=== PATIENT | male | born 1945 | race Caucasian/White ===

== ENCOUNTER 2017-02-26 16:48 | Inpatient (IN) | payer MEDICARE, MEDICAID ==
[~2017-02-26] VITALS: Ht 182.9 cm; Wt 90.7 kg
[~2017-02-26 16:48] MED LIST: ACET650S15 RC; BISA10SU58 RC; FAMO-119 PO; GLUC1KIT IJ; HYDR-3812 PO; INSU100I14 SQ; INSU100I29 SQ; IPRA3AMP IH; METO-310 PO; METO-333 PO; MULT-1042 PO; PHEN100C11 PO; POTA20LI PO; POTA2IV.2 IV; THIA100T68 PO; VALP250S3 PO
[2017-02-26] MEDS ORDERED: DONE5TAB30 PO (17:58)
[2017-02-26] MEDS ORDERED: TOLT4CAP13 PO (17:58)
[2017-02-26] MEDS ORDERED: DIVA250T4 PO (17:58)
[2017-02-26] MEDS ORDERED: MEMA5TAB16 PO (17:58)
[2017-02-26] MEDS ORDERED: TAMS0.4C2 PO (17:58)
[2017-02-26] MEDS ORDERED: TRAZ-28 PO (17:58)
[2017-02-26 18:11] LABS: BASOPHILS % (AUTO) 0 % (0-10); EOSINOPHILS # (AUTO) 0.1 10^3/uL (0.0-0.3); EOSINOPHILS % (AUTO) 1 % (0-10); LYMPHOCYTES # (AUTO) 1.2 X 10^3 (1.0-4.0); LYMPHOCYTES % (AUTO) 10 % (12-44); MEAN CORPUSCULAR HEMOGLOBIN 32 PG (25-34); MEAN CORPUSCULAR HGB CONC 34 G/DL (32-36); MEAN CORPUSCULAR VOLUME 95 FL (80-99); MEAN PLATELET VOLUME 11.1 FL (7.4-10.4); MONOCYTES # (AUTO) 1.4 X 10^3 (0.0-1.0); MONOCYTES % (AUTO) 11 % (0-12); NEUTROPHILS # (AUTO) 9.5 X 10^3 (1.8-7.8); NEUTROPHILS % (AUTO) 78 % (42-75); PLATELET COUNT 221 10^3/uL (130-400); RED BLOOD COUNT 3.29 10^6/uL (4.35-5.85); RED CELL DISTRIBUTION WIDTH 13.2 % (10.0-14.5); WHITE BLOOD COUNT 12.2 10^3/uL (4.3-11.0)
[2017-02-26 18:18] LABS: INR 1.1 (0.8-1.4); PROTHROMBIN TIME PATIENT 14.2 SEC (12.2-14.7)
[2017-02-26 18:25] LABS: ALANINE AMINOTRANSFERASE 11 U/L (0-55); ALBUMIN 3.4 G/DL (3.2-4.5); ANION GAP 10 MMOL/L (5-14); ASPARTATE AMINO TRANSFERASE 11 U/L (5-34); BILIRUBIN,TOTAL 0.5 MG/DL (0.1-1.0); BLOOD UREA NITROGEN 21 MG/DL (7-18); BUN/CREATININE RATIO 16; CALCIUM 8.9 MG/DL (8.5-10.1); CARBON DIOXIDE 24 MMOL/L (21-32); CHLORIDE 102 MMOL/L (98-107); CREATININE SERUM 1.34 MG/DL (0.60-1.30); GFR ESTIMATED 53; GLUCOSE 151 MG/DL (70-105); MAGNESIUM 1.9 MG/DL (1.8-2.4); POTASSIUM 4.2 MMOL/L (3.6-5.0); SODIUM 136 MMOL/L (135-145); TOTAL PROTEIN 6.5 G/DL (6.4-8.2)
--- NOTE | 2017-02-26 18:29 | ED General ---
General Chief Complaint: Altered Mental Status Stated Complaint: FALL/PAIN ALL OVER/LOW OXYGEN LEVELS Nursing Triage Note: Sister states that her brother was having changes in mentation starting last night. Stated he was wondering into other residents rooms and was very sleepy. Patient is oriented times 4 at this time. He does state that he has been having an increase difficulty in voiding. Sisiter states that he was wheezing last night and today, sats were in 80's but they gave him a breathing treatment and sat improved to 90's/ / Pt c/o muscle and joint pain over body Nursing Sepsis Screen: No Definite Risk Source of Information: Patient, Family Exam Limitations: No Limitations History of Present Illness Time Seen by Provider: 18:29 Initial Comments 71-year-old male patient presents to the emergency department with complaints of altered mental status beginning last night. Patient is a relatively new resident at [facility]. Reports patient was wandering into other residents rooms with increased sleepiness. Patient does report poor difficulty with voiding. Denies hematuria, dysuria, frequency. Staff reported to the sister the patient was having wheezing last night with SaO2 in the 80's. After a nebulizer treatment, SaO2 increased the the 90's. Patient has chronic LE pain, but worse today. Brother in law states patient rolled out of bed earlier today. Patient thinks he hit his head on the floor. Denies LOC or headache. Timing/Duration: 12-24 Hours, Intermittent Modifying Factors: worse with Other (Denies modifying factors) Allergies and Home Medications Allergies Coded Allergies: No Known Drug Allergies (Verified , 02/26/17) Home Medications Acetaminophen 325 Mg Tablet, 650 MG PO Q4H PRN for PAIN-MILD OR TEMPATURE, ( Reported) TAKES 2 (325 MG) TABLETS Alprazolam 0.25 Mg Tablet, 0.25 MG PO BID PRN for AG, (Reported) Bisacodyl 10 Mg Supp.rect, 10 MG RC DAILY PRN for CONSTIPATION, (Reported) Budesonide/Formoterol Fumarate 10.2 Gm Hfa.aer.ad, 1 PUFF IH BID, (Reported) Cetirizine HCl 10 Mg Tablet, 10 MG PO HS, (Reported) Citalopram Hydrobromide 10 Mg Tablet, 10 MG PO DAILY, (Reported) Divalproex Sodium 250 Mg Tablet.dr, 500 MG PO DAILY, (Reported) TAKES 2 (250 MG) TABLETS Divalproex Sodium 250 Mg Tab.er.24h, 750 MG PO HS, (Reported) TAKES 3 (250 MG) TABLETS Donepezil HCl 5 Mg Tablet, 5 MG PO HS, (Reported) Famotidine 20 Mg Tablet, 20 MG PO BID, (Reported) Gabapentin 100 Mg Capsule, 100 MG PO HS, (Reported) Insulin Detemir 100 Unit/1 Ml Insuln.pen, 10 UNIT SQ DAILY@0700, (Reported) Insulin Lispro 100 Unit/1 Ml Insuln.pen, SQ SLIDING/SCALE, (Reported) 200-250 2 UNITS 251-300 4 UNITS 301-350 6 UNITS 351-400 8 UNITS NOTIFY NURSE IF BS ABOVE 400 OR BELOW 60 Ipratropium/Albuterol Sulfate 3 Ml Ampul.neb, 3 ML IH Q6H PRN for SHORTNESS OF BREATH, (Reported) Loperamide HCl 2 Mg Capsule, 2 MG PO TID PRN for LOOSE STOOLS, (Reported) Memantine HCl 5 Mg Tablet, 5 MG PO BID, (Reported) Metoprolol Tartrate 25 Mg Tablet, 25 MG PO BID, (Reported) HOLD IF PULSE < 60 Multivitamin 1 Each Tablet, 1 TAB PO DAILY, (Reported) Potassium Chloride 20 Meq Tab.er.prt, 20 MEQ PO BID, (Reported) Tamsulosin HCl 0.4 Mg Cap.er.24h, 0.4 MG PO HS, (Reported) Thiamine Mononitrate 100 Mg Tablet, 100 MG PO DAILY, (Reported) Tolterodine Tartrate 4 Mg Cap.er.24h, 4 MG PO DAILY, (Reported) Trazodone HCl 50 Mg Tablet, 50 MG PO HS, (Reported) Constitutional: No chills, No diaphoresis, No dizziness, No fever, No malaise, weakness (generalized weakness. previously able to transfer self to and from his wheelchair. Today unable to transfer self.) EENTM: no symptoms reported Respiratory: see HPI, No cough, No dyspnea on exertion, No hemoptysis, No orthopnea, No phlegm, No short of breath (denies current SOB), No wheezing ( denies current wheezing.) Cardiovascular: No chest pain, No edema, No palpitations, No syncope Gastrointestinal: no symptoms reported Genitourinary: see HPI, No decreased output, No dysuria, No frequency, No hematuria, hesitancy, No pain Musculoskeletal: see HPI Skin: no symptoms reported Psychiatric/Neurological: See HPI, Denies Headache, Denies Numbness, Denies Paresthesia, Denies Seizure, Denies Tingling, Denies Weakness (denies one sided weakness.) All Other Systems Reviewed Negative Unless Noted: Yes (Negative excepted noted.) Past Nrudsmn-Zchvyo-Ztqsbd Hx Patient Social History Alcohol Use: Denies Use Recreational Drug Use: No Smoking Status: Former Smoker Type Used: Cigarettes Recent Foreign Travel: No Contact w/Someone Who Travel: No Recent Infectious Disease Expo: No Recent Hopitalizations: No Immunizations Up To Date Tetanus Booster (TDap): Unknown Date of Pneumonia Vaccine: Jul 20, 2015 Date of Influenza Vaccine: Aug 19, 2015 Seasonal Allergies Seasonal Allergies: No Surgeries HX Surgeries: Yes (J tube) Surgeries: Tracheostomy Respiratory Hx Respiratory Disorders: Yes (bacterial pneumonia) Respiratory Disorders: Pneumonia, COPD Cardiovascular Hx Cardiac Disorders: No Neurological Hx Neurological Disorders: Yes (brain injury 2014; 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) Neurological Disorders: Dementia, Traumatic Brain Injury Reproductive System Hx Reproductive Disorders: No Genitourinary Hx Genitourinary Disorders: No Gastrointestinal Hx Gastrointestinal Disorders: No Musculoskeletal Hx Musculoskeletal Disorders: No Endocrine Hx Endocrine Disorders: Yes Endocrine Disorders: Diabetes, Non-Insulin dep HEENT HX ENT Disorders: No Cancer Hx Cancer: No Psychosocial Hx Psychiatric Problems: No Integumentary HX Skin/Integumentary Disorder: No Blood Transfusions Hx Blood Disorders: No Reviewed Nursing Assessment Reviewed/Agree w Nursing PMH: Yes Family Medical History Significant Family History: No Pertinent Family Hx Family Medial History: Alcoholism 19 FATHER, Onset:Unknown Congenital heart disease 19 FATHER, Onset:Unknown FH: cancer G8 SISTER, Onset:Unknown Physical Exam Vital Signs Vital Sign - Last 12Hours 02/26/17 02/26/17 02/26/17 17:20 21:04 21:15 Temp 98.3 Pulse 68 Resp 18 B/P (MAP) 117/58 Pulse Ox 94 O2 Delivery Room Air O2 Flow Rate 2.00 Capillary Refill : Less Than 3 Seconds General Appearance: No Apparent Distress, WD/WN HEENT: PERRL/EOMI, TMs Normal, Normal ENT Inspection, Pharynx Normal Neck: Full Range of Motion, Normal Inspection, Non Tender, Supple Respiratory: Lungs Clear, Normal Breath Sounds, No Respiratory Distress Cardiovascular: Regular Rate, Rhythm, No Edema, No Murmur, Normal Peripheral Pulses Gastrointestinal: Normal Bowel Sounds, No Organomegaly, Non Tender, Soft, No Distended Back: Normal Inspection Extremity: Normal Capillary Refill, Normal Inspection, No Pedal Edema, Other ( BLE soft tissue tenderness without evidence of trauma or swelling.) Neurologic/Psychiatric: Alert, Oriented x3 (patient oriented to person, place and situation.), No Motor/Sensory Deficits, Normal Mood/Affect, jackspooler II-XII Norm as Tested Skin: Normal Color, Warm/Dry Progress/Results/Core Measures Results/Orders Lab Results Laboratory Tests Test 02/26/17 17:30 02/26/17 19:25 02/27/17 04:15 02/27/17 11:41 Range/Units White Blood Count 12.2 H 8.9 4.3-11.0 10^3/uL Red Blood Count 3.29 L 3.08 L 4.35-5.85 10^6/uL Hemoglobin 10.5 L 9.9 L 13.3-17.7 G/DL Hematocrit 31 L 30 L 40-54 % Mean Corpuscular Volume 95 97 80-99 FL Mean Corpuscular Hemoglobin 32 32 25-34 PG Mean Corpuscular Hemoglobin Concent 34 33 32-36 G/DL Red Cell Distribution Width 13.2 13.3 10.0-14.5 % Platelet Count 221 223 130-400 10^3/uL Mean Platelet Volume 11.1 H 11.0 H 7.4-10.4 FL Neutrophils (%) (Auto) 78 H 66 42-75 % Lymphocytes (%) (Auto) 10 L 20 12-44 % Monocytes (%) (Auto) 11 12 0-12 % Eosinophils (%) (Auto) 1 3 0-10 % Basophils (%) (Auto) 0 0 0-10 % Neutrophils # (Auto) 9.5 H 5.8 1.8-7.8 X 10^3 Lymphocytes # (Auto) 1.2 1.7 1.0-4.0 X 10^3 Monocytes # (Auto) 1.4 H 1.0 0.0-1.0 X 10^3 Eosinophils # (Auto) 0.1 0.3 0.0-0.3 10^3/uL Basophils # (Auto) 0.0 0.0 0.0-0.1 10^3/uL Prothrombin Time 14.2 12.2-14.7 SEC INR Comment 1.1 0.8-1.4 Activated Partial Thromboplast Time 37 H 24-35 SEC Sodium Level 136 140 135-145 MMOL/L Potassium Level 4.2 4.3 3.6-5.0 MMOL/L Chloride Level 102 106 98-107 MMOL/L Carbon Dioxide Level 24 27 21-32 MMOL/L Anion Gap 10 7 5-14 MMOL/L Blood Urea Nitrogen 21 H 19 H 7-18 MG/DL Creatinine 1.34 H 1.21 0.60-1.30 MG/DL Estimat Glomerular Filtration Rate 53 59 BUN/Creatinine Ratio 16 16 Glucose Level 151 H 110 H 70-105 MG/DL Calcium Level 8.9 8.5 8.5-10.1 MG/DL Magnesium Level 1.9 1.8-2.4 MG/DL Iron Level 19 L 40-180 ug/dL Total Iron Binding Capacity 215 L 280-380 ug/dL Unsaturated Iron Binding Capacity 196 55-450 ug/dL Transferrin % Saturation 9 L 15-50 % Total Bilirubin 0.5 0.3 0.1-1.0 MG/DL Aspartate Amino Transf (AST/SGOT) 11 10 5-34 U/L Alanine Aminotransferase (ALT/SGPT) 11 8 0-55 U/L Alkaline Phosphatase 48 47 40-136 U/L Troponin I < 0.30 <0.30 NG/ML B-Type Natriuretic Peptide 377.2 H <100.0 PG/ML Total Protein 6.5 6.1 L 6.4-8.2 G/DL Albumin 3.4 3.2 3.2-4.5 G/DL TSH [place] Testing 1.77 0.35-4.94 UIU/ML Valproic Acid (Depakene) Level 52.0 50.0-100.0 UG/ML Urine Color STRAW Urine Clarity SLIGHTLY CLOUDY Urine pH 5 5-9 Urine Specific [place] 1.015 L 1.016-1.022 Urine Protein 3+ H NEGATIVE Urine Glucose (UA) NEGATIVE NEGATIVE Urine Ketones 1+ H NEGATIVE Urine Nitrite NEGATIVE NEGATIVE Urine Bilirubin NEGATIVE NEGATIVE Urine Urobilinogen NORMAL NORMAL MG/DL Urine Leukocyte Esterase 3+ H NEGATIVE Urine RBC (Auto) 3+ H NEGATIVE Urine RBC NONE /HPF Urine WBC TNTC H /HPF Urine Crystals NONE /LPF Urine Bacteria LARGE H /HPF Urine Casts NONE /LPF Urine Mucus SMALL H /LPF Urine Culture Indicated YES Glucometer 133 H 70-110 MG/DL Test 02/27/17 16:16 02/27/17 20:57 Range/Units Glucometer 205 H 128 H 70-110 MG/DL Micro Results Microbiology 02/26/17 Urine Culture - Preliminary, Resulted Probable Enterococcus Species My Orders Orders - NICOLLE CHRIS Saline Lock/Iv-Start (02/26/17 18:03) Ekg Tracing (02/26/17 18:03) BNP (02/26/17 18:03) Cbc With Automated Diff (02/26/17 18:03) Comprehensive Metabolic Panel (02/26/17 18:03) Magnesium (02/26/17 18:03) Protime With Inr (02/26/17 18:03) Partial Thromboplastin Time (02/26/17 18:03) Thyroid Analyzer (02/26/17 18:03) Troponin I (02/26/17 18:03) Ua Culture If Indicated (02/26/17 18:03) Chest 1 View, Ap/Pa Only (02/26/17 18:03) Valproic Acid (02/26/17 18:03) Ct Head Wo (02/26/17 18:56) Fentanyl Injection (Sublimaze Injection (02/26/17 18:57) Ns Iv 1000 Ml (Sodium Chloride 0.9%) (02/26/17 18:57) Urine Culture (02/26/17 19:25) Ceftriaxone Injection (Rocephin Injectio (02/26/17 20:00) Fentanyl Injection (Sublimaze Injection (02/26/17 21:00) Medications Given in ED Vital Signs/I&O Vital Sign - Last 12Hours 02/27/17 02/27/17 02/27/17 02/27/17 15:43 16:34 18:08 20:09 Temp 98.2 98.2 98.7 Pulse 65 60 Resp 18 20 B/P (MAP) 125/61 125/66 Pulse Ox 84 94 99 O2 Delivery Nasal Cannula Nasal Cannula O2 Flow Rate 4.00 4.00 02/27/17 02/27/17 20:35 21:46 Pulse 46 O2 Flow Rate 2.00 Blood Pressure Mean: 77 ECG Initial ECG Impression Date: February 26, 2017 Initial ECG Impression Time: 18:51 Initial ECG Rate: 56 Initial ECG Rhythm: Normal Sinus Initial ECG Comparisson: No Previous ECG Available Comment normal sinus rhythm with left bundle branch block. ECG reviewed with Dr. Rodriguez. Diagnostic Imaging Diagonstic Imaging: Xray Plain Films/CT/US/NM/MRI: chest Comments FINDINGS: There is cardiomegaly. The lungs are clear. There is no pleural effusion or pneumothorax. Mediastinum is unremarkable. IMPRESSION: 1. No acute cardiopulmonary abnormality. 2. Cardiomegaly. Dictated by: Dictated on workstation # [id number] Reviewed: Reviewed by Me (radiology report reviewed by me) Diagonstic Imaging: CT Plain Films/CT/US/NM/MRI: head Comments FINDINGS: There is prominence of the ventricles and sulci. There is bifrontal encephalomalacia, right greater than left, which is unchanged. There is also encephalomalacia in the right temporal lobe. There is no hydrocephalus. There is some encephalomalacia in the posterior left frontal lobe and left temporal lobe as well. There is no intracranial mass, hemorrhage or extra-axial fluid collection. The calvarium is intact. There is opacification of the left frontal sinus. The remaining sinuses and mastoid air cells are clear. IMPRESSION: 1. 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 2. No acute intracranial abnormality. 3. Opacification of the left frontal sinus. Dictated by: Dictated on workstation # [id number] Reviewed: Reviewed by Me (radiology report reviewed by me) Departure Communication Time/Spoke to Admitting Phy: 20:[address] Ivan Moralez accepts patient to his medical service for IV antibiotics, IV hydration, and further evaluation. Progress Notes , Laboratory findings and diagnostic study findings discussed with the patient. Patient is a resident at [facility] [place] and lives by himself. Patient at this time is unable to transfer from bed to wheelchair or to perform ADLs required to live at the [facility]. I discussed with the patient the plan for admission for IV antibiotics and IV hydration. Patient voices understanding and agrees with the treatment plan. Patient case discussed with Dr. Rodriguez, he agrees with the plan of care. Impression Impression: Primary Impression: Altered level of consciousness Additional Impressions: Urinary tract infection Qualified Codes: N30.00 - Acute cystitis without hematuria Renal insufficiency History of dementia Disposition: ADMITTED INPATIENT Condition: Stable Decision to Admit Reason: Admit from ER (General) Decision to Admit/Date: February 26, 2017 Time/Decision to Admit Time: 20:24 Departure-Patient Inst. Referrals: AURORA RUDD MD (PCP/Family) Primary Care Physician NICOLLE CHRIS February 26, 2017 18:29
[2017-02-26 18:45] LABS: TROPONIN I < 0.30 NG/ML (<0.30)
[2017-02-26] MEDS ORDERED: fentaNYL INJECTION 100 MCG/2 ML AMP IVP STA (18:57)
[2017-02-26] MEDS ORDERED: NS IV 1000 ML 1,000 ML IV ONE (18:57)
--- NOTE | 2017-02-26 19:14 | Diagnostic Imaging Report ---
PROCEDURE: CT head without contrast. TECHNIQUE: Multiple contiguous axial images were obtained through the brain without the use of intravenous contrast. INDICATION: Headache. COMPARISON: Comparison made with prior examination from 12/10/15. FINDINGS: There is prominence of the ventricles and sulci. There is bifrontal encephalomalacia, right greater than left, which is unchanged. There is also encephalomalacia in the right temporal lobe. There is no hydrocephalus. There is some encephalomalacia in the posterior left frontal lobe and left temporal lobe as well. There is no intracranial mass, hemorrhage or extra-axial fluid collection. The calvarium is intact. There is opacification of the left frontal sinus. The remaining sinuses and mastoid air cells are clear. IMPRESSION: 1. 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 2. No acute intracranial abnormality. 3. Opacification of the left frontal sinus. Dictated by: Dictated on workstation # [id number]
--- NOTE | 2017-02-26 19:18 | Diagnostic Imaging Report ---
INDICATION: Fall. FINDINGS: There is cardiomegaly. The lungs are clear. There is no pleural effusion or pneumothorax. Mediastinum is unremarkable. IMPRESSION: 1. No acute cardiopulmonary abnormality. 2. Cardiomegaly. Dictated by: Dictated on workstation # [id number]
[2017-02-26 19:35] LABS: PH,URINE 5 (5-9); PROTEIN,URINE 3+ (NEGATIVE)
[2017-02-26 19:36] LABS: BILIRUBIN,URINE NEGATIVE (NEGATIVE); KETONES,URINE 1+ (NEGATIVE); LEUKOCYTE ESTERASE ,URINE 3+ (NEGATIVE); NITRITE,URINE NEGATIVE (NEGATIVE); UROBILINOGEN,URINE NORMAL (NORMAL)
[2017-02-26 19:41] LABS: WBC,URINE TNTC /HPF
[2017-02-26] MEDS ORDERED: cefTRIAXone INJECTION 1,000 MG in NS (IVPB) 50 ML IV ONE (20:00)
[2017-02-26] MEDS ORDERED: fentaNYL INJECTION 100 MCG/2 ML AMP IVP ONE (21:00)
[2017-02-26 21:15] VITALS: BP 127/68
[2017-02-26] MEDS ORDERED: ONDANSETRON 4 MG/2 ML (SDV) Z0FRAN IV PRN (21:45)
[2017-02-26] MEDS ORDERED: ACETAMINOPHEN 500 MG TAB (TYLENOL) PO PRN (21:45)
[2017-02-26] MEDS: NS IV 1000 ML 1,000 ML IV SCH (22:07)
[2017-02-26] MEDS: fentaNYL INJECTION 100 MCG/2 ML AMP IV PRN (22:53)
[2017-02-27] VITALS (7 sets, daily range): BP systolic 105–130; BP diastolic 54–66
[2017-02-27] MEDS: fentaNYL INJECTION 100 MCG/2 ML AMP IV PRN ×2 (00:54→04:35)
[2017-02-27] MEDS: NS IV 1000 ML 1,000 ML IV SCH ×3 (04:35→21:42)
[2017-02-27 05:16] LABS: BASOPHILS % (AUTO) 0 % (0-10); EOSINOPHILS # (AUTO) 0.3 10^3/uL (0.0-0.3); EOSINOPHILS % (AUTO) 3 % (0-10); LYMPHOCYTES # (AUTO) 1.7 X 10^3 (1.0-4.0); LYMPHOCYTES % (AUTO) 20 % (12-44); MEAN CORPUSCULAR HEMOGLOBIN 32 PG (25-34); MEAN CORPUSCULAR HGB CONC 33 G/DL (32-36); MEAN CORPUSCULAR VOLUME 97 FL (80-99); MONOCYTES % (AUTO) 12 % (0-12); NEUTROPHILS # (AUTO) 5.8 X 10^3 (1.8-7.8); NEUTROPHILS % (AUTO) 66 % (42-75); PLATELET COUNT 223 10^3/uL (130-400); RED BLOOD COUNT 3.08 10^6/uL (4.35-5.85); RED CELL DISTRIBUTION WIDTH 13.3 % (10.0-14.5); WHITE BLOOD COUNT 8.9 10^3/uL (4.3-11.0)
[2017-02-27 05:36] LABS: ALBUMIN 3.2 G/DL (3.2-4.5); BILIRUBIN,TOTAL 0.3 MG/DL (0.1-1.0); CALCIUM 8.5 MG/DL (8.5-10.1); CREATININE SERUM 1.21 MG/DL (0.60-1.30); POTASSIUM 4.3 MMOL/L (3.6-5.0); TOTAL PROTEIN 6.1 G/DL (6.4-8.2)
[2017-02-27] MEDS: inSUlin (REGULAR) HUMAN 1 UNIT/0.01 ML (CHARGE PER UNIT) SC SCH ×4 (05:55→21:42)
--- NOTE | 2017-02-27 08:26 | History & Physicial ---
History of Present Illness History of Present Illness Reason for visit/HPI PT IS A 71 Y/O MALE WHO IS KNOWN TO ME FROM CLINIC. HE PRESENTED TO THE EMERGENCY DEPARTMENT WITH CONFUSION, MENTAL STATUS CHANGES, HE WAS SEEN IN THE EMERGENCY DEPARTMENT, AND DIAGNOSED WITH URINARY TRACT INFECTION. PT WAS ADMITTED TO THE HOSPITAL FOR FURTHER TREATMENT/WORK-UP. Date of Admission February 26, 2017 at 20:36 I consulted on this patient on 02/27/17 08:23 Attending Physician Aurora Singh MD Admitting Physician Aurora Singh MD Consult Allergies and Home Medications Allergies Coded Allergies: No Known Drug Allergies (Verified , 02/26/17) Home Medications Acetaminophen 650 Mg Supp.rect, 650 MG RC Q6H PRN for FEVER, (Reported) Bisacodyl 10 Mg Supp.rect, 10 MG RC DAILY PRN for CONSTIPATION, (Reported) Divalproex Sodium 250 Mg Tablet., #150 (Reported) Donepezil HCl 5 Mg Tablet, #30 (Reported) Famotidine 20 Mg Tablet, 20 MG PO BID, (Reported) Glucagon,Human Recombinant 1 Mg/Kit Soln, 1 MG IJ for HYPOGLYCEMIA, (Reported) Hydrocodone/Acetaminophen 1 Each Tablet, 1 TAB PO Q8H PRN for PAIN, (Reported) Insulin Aspart 300 Units/3 Ml Solution, SQ UD, (Reported) PER SLIDING SCALE BEFORE MEALS AND AT BEDTIME 200-250 =2 UNITS 251-300 =4 UNITS 301-350 =6 UNITS 351-400 =8 UNITS OVER 400 CALL Insulin Detemir 100 Unit/1 Ml Insuln.pen, 10 UNIT SQ DAILY @ 0600, (Reported) Ipratropium/Albuterol Sulfate 3 Ml Ampul.neb, 3 ML IH Q6H PRN for SHORTNESS OF BREATH, (Reported) Memantine HCl 5 Mg Tablet, #60 (Reported) Metoclopramide HCl 10 Mg Tablet, 10 MG PO TID, (Reported) Metoprolol Tartrate 25 Mg Tablet, 25 MG PO BID, (Reported) hold for SBP < 100 Multivit-Min/Iron Fum/Folic AC 1 Each Tablet, 1 TAB PO DAILY, (Reported) Potassium Chloride 20 Meq/15 Ml Liquid, 15 ML PO BID, (Reported) Tamsulosin HCl 0.4 Mg Cap.er.24h, #30 (Reported) Thiamine Mononitrate 100 Mg Tablet, 100 MG PO DAILY, (Reported) Tolterodine Tartrate 4 Mg Cap.er.24h, #30 (Reported) Trazodone HCl 50 Mg Tablet, #30 (Reported) Valproic Acid (As Sodium Salt) 250 Mg/5 Ml Solution, 15 ML PO BID, (Reported) Past Nlncibr-Ulnfrf-Dvfthb Hx Patient Social History Marrital Status: single Living Status: LIVES AT [facility] Employed/Student: retired Alcohol Use: Denies Use Recreational Drug Use: No Smoking Status: Former Smoker Type Used: Cigarettes 2nd Hand Smoke Exposure: No Physical Abuse Screen: No Sexual Abuse: No Recent Foreign Travel: No Contact w/other who traveled: No Recent Hopitalizations: No Recent Infectious Disease Expo: No Immunizations Up To Date Tetanus Booster (TDap): Unknown Date of Pneumonia Vaccine: Jul 20, 2015 Date of Influenza Vaccine: Aug 19, 2015 Seasonal Allergies Seasonal Allergies: No Surgeries HX Surgeries: Yes (J tube) Surgeries: Tracheostomy Respiratory Hx Respiratory Disorders: Yes (bacterial pneumonia) Respiratory Disorders: Pneumonia Cardiovascular Hx Cardiovascular Disorders: Yes Cardiac Disorders: Hypertension Neurological Hx Neurological Disorders: Yes (brain injury 2014; 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) Neurological Disorders: Dementia, Traumatic Brain Injury Reproductive System Hx Reproductive Disorders: No Genitourinary Hx Genitourinary Disorders: No Gastrointestinal Hx Gastrointestinal Disorders: No Musculoskeletal Hx Musculoskeletal Disorders: No Endocrine Hx Endocrine Disorders: Yes Endocrine Disorders: Diabetes, Non-Insulin dep HEENT HX ENT Disorders: No Loss of Vision: Denies Hearing Impairment: Denies Cancer Hx Cancer: No Psychosocial Hx Psychiatric Problems: Yes (HX OF TRAUMATIC BRAIN INJURY, STROKE, DEMENTIA WITH BEHAVIOR DISORDER) Integumentary HX Skin/Integumentary Disorder: No Blood Transfusions Hx Blood Disorders: No Adverse Reaction to a Blood Tr: No Reviewed Nursing Assessment Reviewed/Agree w Nursing PMH: Yes Family Medical History Significant Family History: Heart Disease, Cancer, Other Conditions/Hx ( ALCOHOLISM) Family Hx: Alcoholism 19 FATHER, Onset:Unknown Congenital heart disease 19 FATHER, Onset:Unknown FH: cancer G8 SISTER, Onset:Unknown Constitutional: No chills, No fever, malaise, weakness EENTM: No hoarseness, No throat pain, No throat swelling Respiratory: No cough, dyspnea on exertion, short of breath Cardiovascular: No chest pain, No palpitations Gastrointestinal: abdominal pain, No constipation, No diarrhea, No nausea, No vomiting Genitourinary: frequency, incontinence Musculoskeletal: No back pain, muscle weakness Skin: no symptoms reported Psychiatric/Neurological: Emotional Problems, Weakness All Other Systems Reviewed Negative Unless Noted: Yes Physical Exam Vital Signs Vital Sign - Last 12Hours 02/26/17 02/26/17 02/26/17 17:20 21:04 21:15 Temp 98.3 Pulse 68 Resp 18 B/P (MAP) 117/58 Pulse Ox 94 O2 Delivery Room Air O2 Flow Rate 2.00 Capillary Refill : Less Than 3 Seconds General Appearance: No Apparent Distress, WD/WN Eyes: Bilateral Eye EOMI, Bilateral Eye Normal Inspection, Bilateral Eye PERRL HEENT: Pharynx Normal Neck: Full Range of Motion, Supple Respiratory: Chest Non Tender, Lungs Clear, Normal Breath Sounds, No Accessory Muscle Use Cardiovascular: Regular Rate, Rhythm, Normal Peripheral Pulses Gastrointestinal: Normal Bowel Sounds, Soft, Other (TYMPANIC TO PERCUSSION) Rectal: Deferred Back: Normal Inspection, No Vertebral Tenderness Extremity: Normal Capillary Refill, Non Tender, No Calf Tenderness, No Pedal Edema Neurologic/Psychiatric: Alert, weaver narrow fabrics II-XII Norm as Tested, Other (ORIENTED TO PERSON/PLACE) Skin: Normal Color, Warm/Dry Lymphatic: No Adenopathy Assessment/Plan Assessment and Plan URINARY TRACT INFECTION WEAKNESS CONFUSION HYPERTENSION DIABETES MELLITUS DEMENTIA WITH BEHAVIOR DISORDER HX OF TRAUMATIC BRAIN INJURY ANEMIA ACUTE RENAL INSUFFICIENCY DEHYDRATION URINARY TRACT INFECTION - ON IV ANTIBIOTICS, CONTINUE WITH CURRENT TREATMENT - WAITING ON CULTURE REPORT. WEAKNESS AND CONFUSION - SUPPORTIVE CARE. HYPERTENSION - MONITOR BLOOD PRESSURE, WILL RESUME HOME MEDICATIONS ONCE THEY ARE VERIFIED. DIABETES MELLITUS - ON INSULIN - CHECK FSBS AC AND HS, SLIDING SCALE INSULIN. DEMENTIA WITH BEHAVIOR DISORDER - ON DEPAKOTE - CONTINUE WITH DEPAKOTE AT CURRENT DOSING REGIMEN - PT WITH THERAPEUTIC LEVELS. HX OF TRAUMATIC BRAIN INJURY - SUPPORTIVE CARE. ANEMIA - CHRONIC - CHECK IRON PANEL ACUTE RENAL INSUFFICIENCY - WITH DEHYDRATION - IMPROVED. Problems: Admission Diagnosis URINARY TRACT INFECTION WEAKNESS CONFUSION HYPERTENSION DIABETES MELLITUS DEMENTIA WITH BEHAVIOR DISORDER HX OF TRAUMATIC BRAIN INJURY ANEMIA ACUTE RENAL INSUFFICIENCY DEHYDRATION Clinical Quality Measures DVT/VTE Risk/Contraindication: Risk Factor Score Per Nursin RFS Level Per Nursing on Admit: 4+=Very High AURORA SINGH MD February 27, 2017 08:26
[2017-02-27] MEDS ORDERED: CITA10TA7 PO (09:51)
[2017-02-27] MEDS ORDERED: POTA20TA15 PO (09:51)
[2017-02-27] MEDS ORDERED: DIVA250T12 PO (09:51)
[2017-02-27] MEDS ORDERED: INSU100I23 SQ (09:51)
[2017-02-27] MEDS ORDERED: FAMO20TA5 PO (09:51)
[2017-02-27] MEDS ORDERED: ACET325T49 PO (09:51)
[2017-02-27] MEDS ORDERED: ALPR0.254 PO (09:51)
[2017-02-27] MEDS ORDERED: CETI10TA17 PO (09:51)
[2017-02-27] MEDS ORDERED: MULT1TAB69 PO (09:51)
[2017-02-27] MEDS ORDERED: LOPE2CAP PO (09:51)
[2017-02-27] MEDS ORDERED: BUDE10.22 IH (09:51)
[2017-02-27] MEDS ORDERED: GABA-486 PO (09:51)
[2017-02-27] MEDS ORDERED: BISACODYL 10 MG SUPP (DULCOLAX) RC PRN (18:00)
[2017-02-27] MEDS ORDERED: RT-ALBUTEROL/IPRATROPIUM 3 ML (DUONEB) VIAL IH PRN (18:00)
[2017-02-27] MEDS ORDERED: ALPRAZolam 0.25 MG (XANAX) TAB PO PRN (18:00)
[2017-02-27] MEDS ORDERED: LOPERAMIDE 2 MG (IMODIUM) CAP PO PRN (18:00)
[2017-02-27] MEDS: ACETAMINOPHEN 325 MG TABLET/CAPLET (TYLENOL) PO PRN (18:08)
[2017-02-27] MEDS: KCL 20 MEQ TAB (K-DUR) PO SCH (18:36)
[2017-02-27] MEDS ORDERED: RT-ADVAIR HFA 45/21 MCG PER PUFF IH SCH (20:00)
[2017-02-27] MEDS ORDERED: DONEPEZIL 5 MG (ARICEPT) TAB PO SCH (21:00)
[2017-02-27] MEDS ORDERED: NON-FORMULARY MEDICATION 1 EA EA (Cetirizine HCl 10 MG) PO SCH (21:00)
[2017-02-27] MEDS ORDERED: DIVALPROEX EXT RELEASE 250 MG (DEPAKOTE ER) TAB PO SCH (21:00)
[2017-02-27] MEDS ORDERED: traZODone 50 MG (DESYREL) TAB PO SCH (21:00)
[2017-02-27] MEDS ORDERED: inSUlin DETERMIR 1 UNIT/0.01 ML (LEVEMIR) CHARGE PER UNIT SQ SCH (21:00)
[2017-02-27] MEDS ORDERED: NON-FORMULARY MEDICATION 1 EA EA (Budesonide/Formoterol Fumarate (Symbicort 80-4.5 Mcg Inh IH SCH (21:00)
[2017-02-27] MEDS ORDERED: LORATADINE (CLARITIN) 10 MG TAB PO SCH (21:00)
[2017-02-27] MEDS ORDERED: NON-FORMULARY MEDICATION 1 EA EA (Tamsulosin HCl 0.4 MG) PO SCH (21:00)
[2017-02-27] MEDS ORDERED: GABAPENTIN 100 MG (NEURONTIN) CAP PO SCH (21:00)
[2017-02-27] MEDS: FAMOTIDINE 20 MG (PEPCID) TABLET PO SCH (21:41)
[2017-02-27] MEDS: meTOprolol TARTRATE 25 MG (LOPRESSOR) TABLET PO SCH ×2 (21:41→21:46)
[2017-02-27] MEDS: MEMANTINE 5 MG (NAMENDA) TABLET PO SCH (21:41)
[2017-02-28] VITALS: BP 130/69
[2017-02-28 04:00] VITALS: BP 143/66
[2017-02-28] MEDS: NS IV 1000 ML 1,000 ML IV SCH (05:14)
[2017-02-28 05:28] LABS: BASOPHILS % (AUTO) 0 % (0-10); EOSINOPHILS # (AUTO) 0.4 10^3/uL (0.0-0.3); EOSINOPHILS % (AUTO) 6 % (0-10); LYMPHOCYTES # (AUTO) 1.6 X 10^3 (1.0-4.0); LYMPHOCYTES % (AUTO) 23 % (12-44); MEAN CORPUSCULAR HEMOGLOBIN 31 PG (25-34); MEAN CORPUSCULAR HGB CONC 32 G/DL (32-36); MEAN CORPUSCULAR VOLUME 96 FL (80-99); MEAN PLATELET VOLUME 10.8 FL (7.4-10.4); MONOCYTES % (AUTO) 14 % (0-12); NEUTROPHILS # (AUTO) 3.9 X 10^3 (1.8-7.8); NEUTROPHILS % (AUTO) 56 % (42-75); PLATELET COUNT 242 10^3/uL (130-400); RED BLOOD COUNT 3.01 10^6/uL (4.35-5.85); WHITE BLOOD COUNT 6.8 10^3/uL (4.3-11.0)
[2017-02-28] MEDS: inSUlin (REGULAR) HUMAN 1 UNIT/0.01 ML (CHARGE PER UNIT) SC SCH ×2 (05:28→11:10)
[2017-02-28] MEDS: ACETAMINOPHEN 325 MG TABLET/CAPLET (TYLENOL) PO PRN (05:29)
[2017-02-28 05:50] LABS: ANION GAP 8 MMOL/L (5-14); BLOOD UREA NITROGEN 17 MG/DL (7-18); BUN/CREATININE RATIO 17; CALCIUM 8.4 MG/DL (8.5-10.1); CARBON DIOXIDE 23 MMOL/L (21-32); CHLORIDE 111 MMOL/L (98-107); CREATININE SERUM 0.99 MG/DL (0.60-1.30); GFR ESTIMATED > 60; GLUCOSE 93 MG/DL (70-105); SODIUM 142 MMOL/L (135-145)
[2017-02-28] MEDS: KCL 20 MEQ TAB (K-DUR) PO SCH (06:08)
[2017-02-28 08:00] VITALS: BP 144/71
[2017-02-28] MEDS ORDERED: MULTIVIT W/MINERALS TAB (THERAGRAN M) PO SCH (08:00)
[2017-02-28] MEDS ORDERED: TOLTERODINE LA 4 MG (DETROL) CAP PO SCH (09:00)
[2017-02-28] MEDS ORDERED: DIVALPROEX 250 MG DELAYED RELEASE (DEPAKOTE) TAB PO SCH (09:00)
[2017-02-28] MEDS ORDERED: AMOX500C2 PO (09:22)
[2017-02-28] MEDS ORDERED: LACT1CAP39 PO (09:22)
--- NOTE | 2017-02-28 09:26 | Discharge Inst-Skilled Nursing ---
Discharge Inst-Skilled NF Patient Instructions Patient Problems: urinary tract infection hypertension weakness dementia behavior disorder Consult/Follow Up/Orders Follow Up Appt.: [address] nuñez Skilled NF [facility] to: [facility] Certification (SNF) I certify that SNF services are required to be given on an inpatient basis because of the above named patient's need for [facility] care on a continuing basis for the conditions(s) for which he/she was receiving inpatient hospital services prior to his/her transfer to the SNF. Discharge Diet: Other Diet (resume previous diet) Daily Activity as Tolerated: Yes New & Resume Previous Orders New & Resume Previous Orders resume previous orders - addition of antibiotic x 7 days and probiotic x 10 days Aurora Nuñez February 28, 2017 09:24 AURORA NUÑEZ MD February 28, 2017 09:26
--- NOTE | 2017-02-28 09:27 | Discharge Summary ---
Diagnosis/Chief Complaint Date of Admission February 26, 2017 at 20:36 Date of Discharge Discharge Date: February 28, 2017 Discharge Time: 1130 Admission Diagnosis Admission Diagnosis URINARY TRACT INFECTION WEAKNESS CONFUSION HYPERTENSION DIABETES MELLITUS DEMENTIA WITH BEHAVIOR DISORDER HX OF TRAUMATIC BRAIN INJURY ANEMIA ACUTE RENAL INSUFFICIENCY DEHYDRATION Reason Hospital Visit PT IS A 71 Y/O MALE WHO IS KNOWN TO ME FROM CLINIC. HE PRESENTED TO THE EMERGENCY DEPARTMENT WITH CONFUSION, MENTAL STATUS CHANGES, HE WAS SEEN IN THE EMERGENCY DEPARTMENT, AND DIAGNOSED WITH URINARY TRACT INFECTION. PT WAS ADMITTED TO THE HOSPITAL FOR FURTHER TREATMENT/WORK-UP. Discharge Summary Discharge Physical Examination Allergies: Coded Allergies: No Known Drug Allergies (Verified , 02/26/17) Vitals & I&Os Vital Signs Date Time Temp Pulse Resp B/P (MAP) Pulse Ox O2 Delivery O2 Flow Rate FiO2 02/28/17 08:00 98.9 72 20 144/71 92 Nasal Cannula 4.00 Hospital Course Pending Labs Laboratory Tests 02/28/17 04:45: White Blood Count 6.8, Red Blood Count 3.01, Hemoglobin 9.4, Hematocrit 29, Mean Corpuscular Volume 96, Mean Corpuscular Hemoglobin 31, Mean Corpuscular Hemoglobin Concent 32, Red Cell Distribution Width 13.0, Platelet Count 242, Mean Platelet Volume 10.8, Neutrophils (%) (Auto) 56, Lymphocytes (%) (Auto) 23 , Monocytes (%) (Auto) 14, Eosinophils (%) (Auto) 6, Basophils (%) (Auto) 0, Neutrophils # (Auto) 3.9, Lymphocytes # (Auto) 1.6, Monocytes # (Auto) 1.0, Eosinophils # (Auto) 0.4, Basophils # (Auto) 0.0, Sodium Level 142, Potassium Level 4.0, Chloride Level 111, Carbon Dioxide Level 23, Anion Gap 8, Blood Urea Nitrogen 17, Creatinine 0.99, Estimat Glomerular Filtration Rate > 60, BUN/ Creatinine Ratio 17, Glucose Level 93, Calcium Level 8.4 02/28/17 05:24: Glucometer 95 Discharge Instructions to patient/family Please see electonic discharge instructions given to patient. Discharge Medications Reviewed and agree with Discharge Medication list on patient's Discharge Instruction sheet Clinical Quality Measures DVT/VTE Risk/Contraindication: Risk Factor Score Per Nursin RFS Level Per Nursing on Admit: 4+=Very High Contraindications-Pharm: Other *list below* Contraindications-Mechi: Other *list below* Other: pt to be discharged, no need for scds or chemical prophylaxis AURORA RUDD MD February 28, 2017 09:27
[2017-02-28] MEDS: MEMANTINE 5 MG (NAMENDA) TABLET PO SCH (09:29)
[2017-02-28] MEDS: meTOprolol TARTRATE 25 MG (LOPRESSOR) TABLET PO SCH (09:29)
[2017-02-28] MEDS: FAMOTIDINE 20 MG (PEPCID) TABLET PO SCH (09:29)
[2017-02-28] MEDS: AMOXICILLIN 500 MG (POLYMOX) CAP PO SCH ×2 (10:07→12:42)
[2017-02-28 13:26] VITALS: BP 144/71
[2017-02-28] MEDS ORDERED: ALFUZOSIN HCL 10 MG TAB (UROXATRAL) PO SCH (18:00)
== END 2017-02-28 13:36 | DRG 690 ==
LOC: EDUNIT# 16:48 → ER 16:50 → 4TH 20:36 → ENPENDDIS 02-28 11:30
PROVIDERS: ADMIT Family Medicine; ATTEND Family Medicine
DX: N39.0 Urinary tract infection, site not specified (principal); E86.0 Dehydration; I10 Essential (primary) hypertension; N28.9 Disorder of kidney and ureter, unspecified; F03.91 Unspecified dementia, unspecified severity, with behavioral disturbance; E11.9 Type 2 diabetes mellitus without complications; R56.9 Unspecified convulsions; Z66 Do not resuscitate; J44.9 Chronic obstructive pulmonary disease, unspecified; D64.9 Anemia, unspecified; Z87.820 Personal history of traumatic brain injury; Z87.891 Personal history of nicotine dependence
CPT/HCPCS: 36415; 70450; 71010; 80048; 80053; 80164; 81000; 82728; 82962; 83540; 83735; 83880; 84443; 84484; 85025; 85610; 85730; 87077; 87088; 87186; 93005; 94760; 96361; 96365; 96375; 96376

== ENCOUNTER 2017-10-11 05:51 | Outpatient (CLI) | payer MEDICARE, MEDICAID ==
[~2017-10-11] VITALS: Ht 182.9 cm; Wt 83.9 kg
[~2017-10-11 05:51] MED LIST changes: +ACET325T49 PO; +ALPR0.254 PO; +AMOX500C2 PO; +BUDE10.22 IH; +CETI10TA17 PO; +CITA10TA7 PO; +DIVA250T12 PO; +DIVA250T4 PO; +DONE5TAB30 PO; +FAMO20TA5 PO; +GABA-486 PO; +INSU100I23 SQ; +LACT1CAP39 PO; +LOPE2CAP PO; +MEMA5TAB16 PO; +MULT1TAB69 PO; +POTA20TA15 PO; +TAMS0.4C2 PO; +TOLT4CAP13 PO; +TRAZ-28 PO
== END 2017-10-11 12:36 ==
LOC: PREOP 05:51
PROVIDERS: ATTEND Surgery
DX: Z01.818 Encounter for other preprocedural examination (principal); L72.3 Sebaceous cyst

== ENCOUNTER 2017-10-13 06:12 | Day surgery (SDC) | payer MEDICARE, MEDICAID ==
[~2017-10-13] VITALS: Ht 182.9 cm; Wt 83.9 kg
--- OUTSIDE RECORDS SUMMARY | 2017-10-13 06:16 | XMS REPORT | Continuity of Care Document ---
Author Author [facility] Organization [facility] Address Unknown Phone Unavailable Allergies Active Description Code Type Severity Reaction Onset Reported/Identified Relationship to Patient Clinical Status Yes No Known Drug Allergies [id number] Drug Allergy Unknown N/A 02/26/2017 Medications There is no data. Problems Date Dx Coded Attending Type Code Diagnosis Diagnosed By 12/14/2015 CHON HOUSE DO Ot E11.9 TYPE 2 DIABETES MELLITUS WITHOUT COMPLIC 12/14/2015 COREYDER DOCHON Ot R56.9 UNSPECIFIED CONVULSIONS 12/14/2015 COREYDER DOCHON Ot Z66 DO NOT RESUSCITATE 12/14/2015 GELLENDER DOCHON Ot E11.9 12/14/2015 GELLENDER DOCHON Ot R56.9 12/14/2015 GELLENDER DOCHON Ot Z66 04/15/2016 GRACIELA FLORES, ESMER Ackerman Ot Z01.818 ENCOUNTER FOR OTHER PREPROCEDURAL EXAMIN 04/29/2016 GRACIELA FLORES, ESMER Ackerman Ot 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 04/29/2016 GRACIELA FLORES, ESMER Ackerman Ot Z01.818 ENCOUNTER FOR OTHER PREPROCEDURAL EXAMIN 05/02/2016 GRACIELA FLORES, ESMER Ackerman Ot E11.9 TYPE 2 DIABETES MELLITUS WITHOUT COMPLIC 05/02/2016 GRACIELA FLORES, ESMER Ackerman Ot Z43.1 ENCOUNTER FOR ATTENTION TO GASTROSTOMY 05/03/2016 GRACIELA FLORES, ESMER Ackerman Ot E11.9 TYPE 2 DIABETES MELLITUS WITHOUT COMPLIC 05/03/2016 GRACIELA FLORES, ESMER Ackerman Ot Z43.1 ENCOUNTER FOR ATTENTION TO GASTROSTOMY 05/06/2016 GRACIELA FLORES, ESMER Ackerman Ot E11.9 TYPE 2 DIABETES MELLITUS WITHOUT COMPLIC 05/06/2016 GRACIELA FLORES, ESMER Ackerman Ot Z43.1 ENCOUNTER FOR ATTENTION TO GASTROSTOMY 02/26/2017 GRACIELA FLORES, ESMER Ackerman Ot Z01.818 ENCOUNTER FOR OTHER PREPROCEDURAL EXAMIN 02/26/2017 GRACIELA FLORES, ESMER Ackerman Ot 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 02/26/2017 GRACIELA FLORES, ESMER Ackerman Ot Z01.818 ENCOUNTER FOR OTHER PREPROCEDURAL EXAMIN 02/28/2017 BLAIRE FLORES, AURORA Guajardo Ot D64.9 ANEMIA, UNSPECIFIED 02/28/2017 BLAIRE FLORES, AURORA Guajardo Ot E11.9 TYPE 2 DIABETES MELLITUS WITHOUT COMPLIC 02/28/2017 BLAIRE FLORES, AURORA Guajardo Ot E86.0 DEHYDRATION 02/28/2017 AURORA RUDD MD Ot F03.91 UNSPECIFIED DEMENTIA WITH BEHAVIORAL DIS 02/28/2017 BLAIRE FLORES, AURORA Guajardo Ot I10 ESSENTIAL (PRIMARY) HYPERTENSION 02/28/2017 BLAIRE FLORES, AURORA Guajardo Ot J44.9 CHRONIC OBSTRUCTIVE PULMONARY DISEASE, U 02/28/2017 AURORA RUDD MD Ot N28.9 DISORDER OF KIDNEY AND URETER, UNSPECIFI 02/28/2017 AURORA RUDD MD Ot N39.0 URINARY TRACT INFECTION, SITE NOT SPECIF 02/28/2017 AURORA RUDD MD Ot R56.9 UNSPECIFIED CONVULSIONS 02/28/2017 AURORA RUDD MD Ot Z66 DO NOT RESUSCITATE 02/28/2017 BLAIRE FLORES, AURORA Guajardo Ot Z87.820 PERSONAL HISTORY OF TRAUMATIC BRAIN INJU 02/28/2017 AURORA RUDD MD Ot Z87.891 PERSONAL HISTORY OF NICOTINE DEPENDENCE 04/14/2017 GRACIELA FLORES, ESMER Ackerman Ot Z01.818 ENCOUNTER FOR OTHER PREPROCEDURAL EXAMIN 04/14/2017 GRACIELA FLORES, ESMER Ackerman Ot 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 04/14/2017 GRACIELA FLORES, ESMER Ackerman Ot Z01.818 ENCOUNTER FOR OTHER PREPROCEDURAL EXAMIN 04/19/2017 ESMER OWENS MD Ot Z01.818 ENCOUNTER FOR OTHER PREPROCEDURAL EXAMIN 04/19/2017 ESMER OWENS MD Ot 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 04/19/2017 ESMER OWENS MD Ot Z01.818 ENCOUNTER FOR OTHER PREPROCEDURAL EXAMIN 10/04/2017 ESMER OWENS MD Ot Z01.818 ENCOUNTER FOR OTHER PREPROCEDURAL EXAMIN 10/04/2017 ESMER OWENS MD Ot 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 10/04/2017 ESMER OWENS MD Ot Z01.818 ENCOUNTER FOR OTHER PREPROCEDURAL EXAMIN Procedures There is no data. Results Test Result Range Complete blood count (CBC) with automated white blood cell (WBC) differential - 02/26/17 17:30 Blood leukocytes automated count (number/volume) 12.2 10*3/uL 4.3-11.0 Blood erythrocytes automated count (number/volume) 3.29 10*6/uL 4.35-5.85 Venous blood hemoglobin measurement (mass/volume) 10.5 g/dL 13.3-17.7 Blood hematocrit (volume fraction) 31 % 40-54 Automated erythrocyte mean corpuscular volume 95 [foz_us] 80-99 Automated erythrocyte mean corpuscular hemoglobin (mass per erythrocyte) 32 pg 25-34 Automated erythrocyte mean corpuscular hemoglobin concentration measurement ( mass/volume) 34 g/dL 32-36 Automated erythrocyte distribution width ratio 13.2 % 10.0-14.5 Automated blood platelet count (count/volume) 221 10*3/uL 130-400 Automated blood platelet mean volume measurement 11.1 [foz_us] 7.4-10.4 Automated blood neutrophils/100 leukocytes 78 % 42-75 Automated blood lymphocytes/100 leukocytes 10 % 12-44 Blood monocytes/100 leukocytes 11 % 0-12 Automated blood eosinophils/100 leukocytes 1 % 0-10 Automated blood basophils/100 leukocytes 0 % 0-10 Blood neutrophils automated count (number/volume) 9.5 10*3 1.8-7.8 Blood lymphocytes automated count (number/volume) 1.2 10*3 1.0-4.0 Blood monocytes automated count (number/volume) 1.4 10*3 0.0-1.0 Automated eosinophil count 0.1 10*3/uL 0.0-0.3 Automated blood basophil count (count/volume) 0.0 10*3/uL 0.0-0.1 PT panel in platelet poor plasma by coagulation assay - 02/26/17 17:30 Prothrombin time (PT) in platelet poor plasma by coagulation assay 14.2 s 12.2-14.7 INR in platelet poor plasma or blood by coagulation assay 1.1 0.8-1.4 Activated partial thromboplastin time (aPTT) in platelet poor plasma bycoagulation assay - 02/26/17 17:30 Activated partial thromboplastin time (aPTT) in platelet poor plasma bycoagulation assay 37 s 24-35 Comprehensive metabolic panel - 02/26/17 17:30 Serum or plasma sodium measurement (moles/volume) 136 mmol/L 135-145 Serum or plasma potassium measurement (moles/volume) 4.2 mmol/L 3.6-5.0 Serum or plasma chloride measurement (moles/volume) 102 mmol/L 98-107 Carbon dioxide 24 mmol/L 21-32 Serum or plasma anion gap determination (moles/volume) 10 mmol/L 5-14 Serum or plasma urea nitrogen measurement (mass/volume) 21 mg/dL 7-18 Serum or plasma creatinine measurement (mass/volume) 1.34 mg/dL 0.60-1.30 Serum or plasma urea nitrogen/creatinine mass ratio 16 NRG Serum or plasma creatinine measurement with calculation of estimated glomerular filtration rate 53 NRG Serum or plasma glucose measurement (mass/volume) 151 mg/dL 70-105 Serum or plasma calcium measurement (mass/volume) 8.9 mg/dL 8.5-10.1 Serum or plasma total bilirubin measurement (mass/volume) 0.5 mg/dL 0.1-1.0 Serum or plasma alkaline phosphatase measurement (enzymatic activity/volume) 48 U/L 40-136 Serum or plasma aspartate aminotransferase measurement (enzymatic activity/ volume) 11 U/L 5-34 Serum or plasma alanine aminotransferase measurement (enzymatic activity/volume ) 11 U/L 0-55 Serum or plasma protein measurement (mass/volume) 6.5 g/dL 6.4-8.2 Serum or plasma albumin measurement (mass/volume) 3.4 g/dL 3.2-4.5 Magnesium - 02/26/17 17:30 Magnesium 1.9 mg/dL 1.8-2.4 Serum or plasma lithium measurement (moles/volume) - 02/26/17 17:30 BNP level 377.2 pg/mL <100.0 Serum or plasma troponin i.cardiac measurement (mass/volume) - 02/26/17 17:30 Serum or plasma troponin i.cardiac measurement (mass/volume) < ng/ mL <0.30 Serum or plasma thyrotropin measurement by detection limit <=0.05 miu/l (units/ volume) - 02/26/17 17:30 Serum or plasma thyrotropin measurement by detection limit <=0.05 miu/l (units/ volume) 1.77 u[iU]/mL 0.35-4.94 Valproic acid - 02/26/17 17:30 Valproic acid 52.0 ug/mL 50.0-100.0 Serum iron and total iron binding capacity panel - 02/26/17 17:30 Serum or plasma iron measurement (mass/volume) 19 % 40- 180 Total iron binding capacity and transferrin saturation measurement 9 % 15-50 Iron binding capacity [mass/volume] in serum or plasma 215 % 280-380 UIBC (unsaturated iron binding capacity) 196 % 55-450 Serum or plasma ferritin measurement (mass/volume) 226.0 % 25.0-300.0 Complete urinalysis with reflex to culture - 02/26/17 19:25 Urine color determination STRAW NRG Urine clarity determination SLIGHTLY CLOUDY NRG Urine pH measurement by test strip 5 5-9 Specific gravity of urine by test strip 1.015 1.016- 1.022 Urine protein assay by test strip, semi-quantitative 3+ NEGATIVE Urine glucose detection by automated test strip NEGATIVE NEGATIVE Erythrocytes detection in urine sediment by light microscopy 3+ NEGATIVE Urine ketones detection by automated test strip 1+ NEGATIVE Urine nitrite detection by test strip NEGATIVE NEGATIVE Urine total bilirubin detection by test strip NEGATIVE NEGATIVE Urine urobilinogen measurement by automated test strip (mass/volume) NORMAL NORMAL Urine leukocyte esterase detection by dipstick 3+ NEGATIVE Automated urine sediment erythrocyte count by microscopy (number/high power field) NONE NRG Automated urine sediment leukocyte count by microscopy (number/high power field ) TNTC NRG Bacteria detection in urine sediment by light microscopy LARGE NRG Crystals detection in urine sediment by light microscopy NONE NRG Casts detection in urine sediment by light microscopy NONE NRG Mucus detection in urine sediment by light microscopy SMALL NRG Complete urinalysis with reflex to culture YES NRG Bacterial urine culture - 02/26/17 19:25 Bacterial urine culture [id number] NRG COLONY COUNT >100,000/ML NRG FTX;REPORTABLE SENSITIVITY REPORTED 02/28/17 7:35 NRG Bacterial susceptibility panel - 02/26/17 19:25 Gentamicin susceptibility test by minimum inhibitory concentration S NRG Vancomycin susceptibility test by minimum inhibitory concentration 1 NRG Levofloxacin susceptibility test by minimum inhibitory concentration 1 NRG Tetracycline susceptibility test by minimum inhibitory concentration >= NRG Ampicillin susceptibility test by minimum inhibitory concentration < = NRG Nitrofurantoin susceptibility test by minimum inhibitory concentration <= NRG Linezolid susceptibility test by minimum inhibitory concentration 2 NRG Complete blood count (CBC) with automated white blood cell (WBC) differential - 02/27/17 04:15 Blood leukocytes automated count (number/volume) 8.9 10*3/uL 4.3-11.0 Blood erythrocytes automated count (number/volume) 3.08 10*6/uL 4.35-5.85 Venous blood hemoglobin measurement (mass/volume) 9.9 g/dL 13.3-17.7 Blood hematocrit (volume fraction) 30 % 40-54 Automated erythrocyte mean corpuscular volume 97 [foz_us] 80-99 Automated erythrocyte mean corpuscular hemoglobin (mass per erythrocyte) 32 pg 25-34 Automated erythrocyte mean corpuscular hemoglobin concentration measurement ( mass/volume) 33 g/dL 32-36 Automated erythrocyte distribution width ratio 13.3 % 10.0-14.5 Automated blood platelet count (count/volume) 223 10*3/uL 130-400 Automated blood platelet mean volume measurement 11.0 [foz_us] 7.4-10.4 Automated blood neutrophils/100 leukocytes 66 % 42-75 Automated blood lymphocytes/100 leukocytes 20 % 12-44 Blood monocytes/100 leukocytes 12 % 0-12 Automated blood eosinophils/100 leukocytes 3 % 0-10 Automated blood basophils/100 leukocytes 0 % 0-10 Blood neutrophils automated count (number/volume) 5.8 10*3 1.8-7.8 Blood lymphocytes automated count (number/volume) 1.7 10*3 1.0-4.0 Blood monocytes automated count (number/volume) 1.0 10*3 0.0-1.0 Automated eosinophil count 0.3 10*3/uL 0.0-0.3 Automated blood basophil count (count/volume) 0.0 10*3/uL 0.0-0.1 Comprehensive metabolic panel - 02/27/17 04:15 Serum or plasma sodium measurement (moles/volume) 140 mmol/L 135-145 Serum or plasma potassium measurement (moles/volume) 4.3 mmol/L 3.6-5.0 Serum or plasma chloride measurement (moles/volume) 106 mmol/L 98-107 Carbon dioxide 27 mmol/L 21-32 Serum or plasma anion gap determination (moles/volume) 7 mmol/L 5-14 Serum or plasma urea nitrogen measurement (mass/volume) 19 mg/dL 7-18 Serum or plasma creatinine measurement (mass/volume) 1.21 mg/dL 0.60-1.30 Serum or plasma urea nitrogen/creatinine mass ratio 16 NRG Serum or plasma creatinine measurement with calculation of estimated glomerular filtration rate 59 NRG Serum or plasma glucose measurement (mass/volume) 110 mg/dL 70-105 Serum or plasma calcium measurement (mass/volume) 8.5 mg/dL 8.5-10.1 Serum or plasma total bilirubin measurement (mass/volume) 0.3 mg/dL 0.1-1.0 Serum or plasma alkaline phosphatase measurement (enzymatic activity/volume) 47 U/L 40-136 Serum or plasma aspartate aminotransferase measurement (enzymatic activity/ volume) 10 U/L 5-34 Serum or plasma alanine aminotransferase measurement (enzymatic activity/volume ) 8 U/L 0-55 Serum or plasma protein measurement (mass/volume) 6.1 g/dL 6.4-8.2 Serum or plasma albumin measurement (mass/volume) 3.2 g/dL 3.2-4.5 Capillary blood glucose measurement by glucometer (mass/volume) - 02/27/17 11: 41 Capillary blood glucose measurement by glucometer (mass/volume) 133 mg/dL 70-110 Capillary blood glucose measurement by glucometer (mass/volume) - 02/27/17 16: 16 Capillary blood glucose measurement by glucometer (mass/volume) 205 mg/dL 70-110 Capillary blood glucose measurement by glucometer (mass/volume) - 02/27/17 20: 57 Capillary blood glucose measurement by glucometer (mass/volume) 128 mg/dL 70-110 Complete blood count (CBC) with automated white blood cell (WBC) differential - 02/28/17 04:45 Blood leukocytes automated count (number/volume) 6.8 10*3/uL 4.3-11.0 Blood erythrocytes automated count (number/volume) 3.01 10*6/uL 4.35-5.85 Venous blood hemoglobin measurement (mass/volume) 9.4 g/dL 13.3-17.7 Blood hematocrit (volume fraction) 29 % 40-54 Automated erythrocyte mean corpuscular volume 96 [foz_us] 80-99 Automated erythrocyte mean corpuscular hemoglobin (mass per erythrocyte) 31 pg 25-34 Automated erythrocyte mean corpuscular hemoglobin concentration measurement ( mass/volume) 32 g/dL 32-36 Automated erythrocyte distribution width ratio 13.0 % 10.0-14.5 Automated blood platelet count (count/volume) 242 10*3/uL 130-400 Automated blood platelet mean volume measurement 10.8 [[facility]] 7.4-10.4 Automated blood neutrophils/100 leukocytes 56 % 42-75 Automated blood lymphocytes/100 leukocytes 23 % 12-44 Blood monocytes/100 leukocytes 14 % 0-12 Automated blood eosinophils/100 leukocytes 6 % 0-10 Automated blood basophils/100 leukocytes 0 % 0-10 Blood neutrophils automated count (number/volume) 3.9 10*3 1.8-7.8 Blood lymphocytes automated count (number/volume) 1.6 10*3 1.0-4.0 Blood monocytes automated count (number/volume) 1.0 10*3 0.0-1.0 Automated eosinophil count 0.4 10*3/uL 0.0-0.3 Automated blood basophil count (count/volume) 0.0 10*3/uL 0.0-0.1 Whole blood basic metabolic panel - 02/28/17 04:45 Serum or plasma sodium measurement (moles/volume) 142 mmol/L 135-145 Serum or plasma potassium measurement (moles/volume) 4.0 mmol/L 3.6-5.0 Serum or plasma chloride measurement (moles/volume) 111 mmol/L 98-107 Carbon dioxide 23 mmol/L 21-32 Serum or plasma anion gap determination (moles/volume) 8 mmol/L 5-14 Serum or plasma urea nitrogen measurement (mass/volume) 17 mg/dL 7-18 Serum or plasma creatinine measurement (mass/volume) 0.99 mg/dL 0.60-1.30 Serum or plasma urea nitrogen/creatinine mass ratio 17 NRG Serum or plasma creatinine measurement with calculation of estimated glomerular filtration rate > NRG Serum or plasma glucose measurement (mass/volume) 93 mg/dL 70-105 Serum or plasma calcium measurement (mass/volume) 8.4 mg/dL 8.5-10.1 Capillary blood glucose measurement by glucometer (mass/volume) - 02/28/17 05: 24 Capillary blood glucose measurement by glucometer (mass/volume) 95 mg/dL 70-110 Capillary blood glucose measurement by glucometer (mass/volume) - 02/28/17 11: 07 Capillary blood glucose measurement by glucometer (mass/volume) 151 mg/dL 70-110 Encounters ACCT No. Visit Date/Time Discharge Status Pt. Type Provider Facility Loc./Unit Complaint [id number] 10/11/2017 05:51:00 10/11/2017 12:36:00 DIS Outpatient ESMER OWENS MD [facility] PREOP SEBACEOUS CYST [id number] 02/26/2017 20:36:00 02/28/2017 13:36:00 DIS Inpatient AURORA RUDD MD [facility] 4TH ALTERED MENTAL STATUS,UTI ,RENAL INSUFFICIENCY [id number] 05/02/2016 09:57:00 05/02/2016 14:00:00 DIS Outpatient ESMER OWENS MD [facility] SD NONFUNCTION/NON USE [id number] 04/28/2016 05:59:00 04/28/2016 23:59:59 CLS Outpatient ESMER OWENS MD [facility] PREOP NONFUNCTIONING TUBE [id number] 04/14/2016 06:23:00 04/14/2016 23:59:59 CLS Outpatient ESMER OWENS MD [facility] PREOP NONFUNCTION/NON USE [id number] 12/11/2015 00:05:00 12/14/2015 15:36:00 DIS Inpatient CHON HOUSE DO [facility] 4TH RECURRENT SEIZURES [id number] 10/13/2017 08:00:00 PEN Preadmit ESMER OWENS MD [facility] SEBACEOUS CYST
[2017-10-13 06:45] VITALS: BP 107/54
[2017-10-13] MEDS ORDERED: LACTATED RINGERS 1,000 ML IV PRN (06:58)
[2017-10-13] MEDS ORDERED: PROPOFOL INJECTION 50 ML IV ONE (06:59)
[2017-10-13] MEDS ORDERED: fentaNYL INJECTION 100 MCG/2 ML AMP ONE (06:59)
[2017-10-13] MEDS ORDERED: MIDAZOLAM 2 MG/2 ML (VERSED) VIAL ONE (06:59)
[2017-10-13] MEDS ORDERED: ceFAZolin INJECTION 1,000 MG in NS (IVPB) 50 ML IV ONE (07:00)
[2017-10-13] MEDS ORDERED: BUP/EPI 0.5% 1:200,000 (MARCAINE) 10ML VIAL IJ ONE (07:14)
[2017-10-13] MEDS ORDERED: ceFAZolin 1,000 MG (ANCEF) VIAL ONE (07:23)
[2017-10-13] MEDS ORDERED: NS (IVPB) 50 ML ONE (07:23)
[2017-10-13] MEDS ORDERED: CATHETER FLUSH 10 ML SYR IV PRN (07:30)
[2017-10-13] MEDS ORDERED: FAMOTIDINE 20MG/2ML IV (PEPCID) IV ONE (07:30)
--- NOTE | 2017-10-13 08:01 | Progress Note-Pre Operative ---
Pre-Operative Progress Note H&P Reviewed The H&P was reviewed, patient examined and no changes noted. Date Seen by Provider: Oct 09, 2017 Time Seen by Provider: 16:25 Date H&P Reviewed: Oct 13, 2017 Time H&P Reviewed: 08:01 Pre-Operative Diagnosis: Infected sebaceous cyst-posterior neck ESMER OWENS MD Oct 13, 2017 8:01 am
[2017-10-13] MEDS ORDERED: SEVOFLURANE (ULTANE) 15 ML INHAL SOLN ONE ×2 (08:36→08:52)
[2017-10-13] MEDS ORDERED: ONDANSETRON 4 MG/2 ML (SDV) Z0FRAN ONE (08:36)
--- NOTE | 2017-10-13 08:41 | Operative Report ---
Operative Report Date of Procedure/Surgery Oct 13, 2017 Surgeon (s) ESMER OWENS MD Automatic Buffing Wheel Former (s): N/A Post-Operative Diagnosis Same Procedure Performed Excision of sebaceous cyst posterior neck Description of Procedure Anesthesia Type: General Estimated blood loss (mL): Minimal Specimen(s) collected/removed sebaceous cyst Description of the Procedure Indication for the procedure: This gentleman presented with a long-standing sebaceous cyst over the posterior neck with evidence of recent infection. Allowing antibiotic therapy, he was offered formal excision under general anesthetic. Informed consent was obtained after reviewing the operative details and highlighting increased incidence of postoperative wound infection and recurrence. Description of the procedure: He was placed in left lateral disposition and general anesthesia induced using a laryngeal mask airway. A gram of Ancef was administered intravenously as prophylaxis against wound infection. After adequate antiseptic perforation, pre-preemptive analgesia was established 0.5 percent Marcaine with epinephrine. An elliptical incision about 4 cm long was made and the cyst excised intact. Hemostasis was achieved using cautery and the incision closed using 3-0 Vicryl for the deeper layer and 4-0 nylon for skin , in an interrupted fashion. A nonadherent dressing was then applied He tolerated the procedure well, was extubated in the operating room and taken to the recovery room in a stable condition. Findings of the Procedure See op report Allergies and Home Medications Allergies Coded Allergies: No Known Drug Allergies (Verified , 02/26/17) Home Medications Acetaminophen 325 Mg Tablet, 650 MG PO Q4H PRN for PAIN-MILD OR TEMPATURE, ( Reported) TAKES 2 (325 MG) TABLETS Alprazolam 0.25 Mg Tablet, 0.25 MG PO BID PRN for AG, (Reported) Bisacodyl 10 Mg Supp.rect, 10 MG RC DAILY PRN for CONSTIPATION, (Reported) Budesonide/Formoterol Fumarate 10.2 Gm Hfa.aer.ad, 1 PUFF IH BID, (Reported) Cetirizine HCl 10 Mg Tablet, 10 MG PO HS, (Reported) Citalopram Hydrobromide 10 Mg Tablet, 10 MG PO DAILY, (Reported) Divalproex Sodium 250 Mg Tablet.dr, 500 MG PO DAILY, (Reported) TAKES 2 (250 MG) TABLETS Divalproex Sodium 250 Mg Tab.er.24h, 750 MG PO HS, (Reported) TAKES 3 (250 MG) TABLETS Donepezil HCl 5 Mg Tablet, 5 MG PO HS, (Reported) Famotidine 20 Mg Tablet, 20 MG PO BID, (Reported) Gabapentin 100 Mg Capsule, 100 MG PO HS, (Reported) Insulin Detemir 100 Unit/1 Ml Insuln.pen, 10 UNIT SQ DAILY@0700, (Reported) Insulin Lispro 100 Unit/1 Ml Insuln.pen, SQ SLIDING/SCALE, (Reported) 200-250 2 UNITS 251-300 4 UNITS 301-350 6 UNITS 351-400 8 UNITS NOTIFY NURSE IF BS ABOVE 400 OR BELOW 60 Ipratropium/Albuterol Sulfate 3 Ml Ampul.neb, 3 ML IH Q6H PRN for SHORTNESS OF BREATH, (Reported) Loperamide HCl 2 Mg Capsule, 2 MG PO TID PRN for LOOSE STOOLS, (Reported) Memantine HCl 5 Mg Tablet, 5 MG PO BID, (Reported) Metoprolol Tartrate 25 Mg Tablet, 25 MG PO BID, (Reported) HOLD IF PULSE < 60 Multivitamin 1 Each Tablet, 1 TAB PO DAILY, (Reported) Potassium Chloride 20 Meq Tab.er.prt, 20 MEQ PO BID, (Reported) Tamsulosin HCl 0.4 Mg Cap.er.24h, 0.4 MG PO HS, (Reported) Thiamine Mononitrate 100 Mg Tablet, 100 MG PO DAILY, (Reported) Tolterodine Tartrate 4 Mg Cap.er.24h, 4 MG PO BID, (Reported) Trazodone HCl 50 Mg Tablet, 50 MG PO HS, (Reported) ESMER OWENS MD Oct 13, 2017 8:41 am
[2017-10-13] MEDS ORDERED: TRAM50TA2 PO (08:42)
--- NOTE | 2017-10-13 08:43 | Discharge Inst-Simple/Standard ---
Discharge Inst-Standard Discharge Medications New, Converted or Re-Newed RX: RX on Chart Patient Instructions/Follow Up Plan of Care/Instructions/FU: Dressing may be replaced with a Band-Aid in 48 hours. Suture removal in 10 days Activity as Tolerated: Yes Discharge Diet: No Restrictions ESMER OWENS MD Oct 13, 2017 8:43 am
[2017-10-13] MEDS ORDERED: ONDANSETRON 4 MG/2 ML (SDV) Z0FRAN IVP PRN (09:15)
[2017-10-13] MEDS: morphine INJ 10 MG/ML 1ML (SYR OR VIAL) IVP PRN ×2 (09:25→09:30)
[2017-10-13 10:05] VITALS: BP 127/67
[2017-10-13 10:35] VITALS: BP 115/69
[2017-10-13 11:05] VITALS: BP 110/58
[2017-10-13 11:50] VITALS: BP 110/58
== END 2017-10-13 11:50 | disposition home or self-care (01) ==
LOC: SDC 06:12
PROVIDERS: ATTEND Surgery
DX: L72.3 Sebaceous cyst (principal); E11.9 Type 2 diabetes mellitus without complications; I10 Essential (primary) hypertension; J44.9 Chronic obstructive pulmonary disease, unspecified; R56.9 Unspecified convulsions; F03.90 Unspecified dementia, unspecified severity, without behavioral disturbance, psychotic disturbance, mood disturbance, and anxiety; Z87.820 Personal history of traumatic brain injury; Z79.4 Long term (current) use of insulin; Z79.899 Other long term (current) drug therapy
CPT/HCPCS: 82962; 87081

== ENCOUNTER 2018-01-24 11:04 | Inpatient (IN) | payer MEDICARE, MEDICAID ==
[~2018-01-24] VITALS: Ht 182.9 cm; Wt 84.0 kg
[~2018-01-24 11:04] MED LIST changes: +ACHD5005 PO; +DIVA-74 PO; -DIVA250T4 PO; -HYDR-3812 PO; -IPRA3AMP IH; +IPRA3AMP31 NEB; -POTA20LI PO; +POTA20LI3 PO; +TRAM50TA2 PO; +TRAZ-189 PO; -TRAZ-28 PO
--- OUTSIDE RECORDS SUMMARY | 2018-01-24 11:09 | XMS REPORT | Continuity of Care Document ---
Author Author [facility] Organization [facility] Address Unknown Phone Unavailable Allergies Active Description Code Type Severity Reaction Onset Reported/Identified Relationship to Patient Clinical Status Yes NO KNOWN DRUG ALLERGIES NO KNOWN DRUG ALLERG UNKNOWN Yes No Known Drug Allergies [id number] Drug Allergy Unknown N/A 02/26/2017 Medications There is no data. Problems Date Dx Coded Attending Type Code Diagnosis Diagnosed By 12/14/2015 CHON HOUSE DO Ot E11.9 TYPE 2 DIABETES MELLITUS WITHOUT COMPLIC 12/14/2015 CHON HOUSE DO Ot R56.9 UNSPECIFIED CONVULSIONS 12/14/2015 CHON HOUSE DO Ot Z66 DO NOT RESUSCITATE 12/14/2015 CHON HOUSE DO Ot E11.9 12/14/2015 GELCELESTEDER DOCHON Ot R56.9 12/14/2015 GELCHON ORTEZ DO Ot Z66 04/15/2016 GRACIELA FLORES, ESMER Ackerman [...] Ot Z43.1 ENCOUNTER FOR ATTENTION TO GASTROSTOMY 07/01/2016 A 290.41 VASCULAR DEMENTIA, WITH DELIRIUM 07/01/2016 A F01.51 VASCULAR DEMENTIA WITH BEHAVIORAL DISTURBANCE 07/13/2016 W 250.60 07/13/2016 W 285.9 07/13/2016 W 296.90 07/13/2016 W 303.90 07/13/2016 W 305.1 07/13/2016 W 401.0 07/13/2016 W 491.20 07/13/2016 W 780.39 OTHER CONVULSIONS 07/13/2016 W 783.21 LOSS OF WEIGHT 07/13/2016 W D64.9 ANEMIA, UNSPECIFIED 07/13/2016 W E11.42 TYPE 2 DIABETES MELLITUS WITH DIABETIC POLYNEUROPATHY 07/13/2016 W F10.20 07/13/2016 W F17.210 NICOTINE DEPENDENCE, CIGARETTES, UNCOMPLICATED 07/13/2016 W F39 07/13/2016 W I10 ESSENTIAL ( PRIMARY) HYPERTENSION 07/13/2016 W J44.9 CHRONIC OBSTRUCTIVE PULMONARY DISEASE, UNSPECIFIED 07/13/2016 W R56.9 UNSPECIFIED CONVULSIONS 07/13/2016 W R63.4 ABNORMAL WEIGHT LOSS 07/13/2016 W V15.52 PERSONAL HISTORY OF TRAUMATIC BRAIN INJURY 07/13/2016 W Z87.820 PERSONAL HISTORY OF TRAUMATIC BRAIN INJURY 08/22/2016 MAX CALDERÓN 290.41 VASCULAR DEMENTIA, WITH DELIRIUM 08/22/2016 MAX CALDERÓN F01.51 VASCULAR DEMENTIA WITH BEHAVIORAL DISTURBANCE 02/26/2017 GRACIELA FLORES, ESMER Ackerman Ot Z01.818 ENCOUNTER FOR OTHER PREPROCEDURAL EXAMIN 02/26/2017 GRACIELA FLORES, ESMER Ackerman Ot 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 02/26/2017 GRACIELA FLORES, ESMER Ackerman Ot Z01.818 ENCOUNTER FOR OTHER PREPROCEDURAL EXAMIN 02/28/2017 BLAIRE FLORES, AURORA Guajardo Ot D64.9 ANEMIA, UNSPECIFIED 02/28/2017 BLAIRE FLORES, AURORA Guajardo Ot E11.9 TYPE 2 DIABETES MELLITUS WITHOUT COMPLIC 02/28/2017 BLAIRE FLORES, AURORA Guajrado Ot E86.0 DEHYDRATION 02/28/2017 AURORA RUDD MD Ot F03.91 UNSPECIFIED DEMENTIA WITH BEHAVIORAL DIS 02/28/2017 AURORA RUDD MD Ot I10 ESSENTIAL (PRIMARY) HYPERTENSION 02/28/2017 AURORA RUDD MD, Ot J44.9 CHRONIC OBSTRUCTIVE PULMONARY DISEASE, U 02/28/2017 AURORA RUDD MD A Ot N28.9 DISORDER OF KIDNEY AND URETER, UNSPECIFI 02/28/2017 AURORA RUDD MD Ot N39.0 URINARY TRACT INFECTION, SITE NOT SPECIF 02/28/2017 AURORA RUDD MD Ot R56.9 UNSPECIFIED CONVULSIONS 02/28/2017 BLAIRE FLORES, AURORA Guajardo Ot Z66 DO NOT RESUSCITATE 02/28/2017 BLAIRE FLORES, AURORA Guajardo Ot Z87.820 PERSONAL HISTORY OF TRAUMATIC BRAIN INJU 02/28/2017 AURORA RUDD MD Ot Z87.891 PERSONAL HISTORY OF NICOTINE DEPENDENCE 04/14/2017 GRACIELA FLORES, ESMER Ackerman Ot Z01.818 ENCOUNTER FOR OTHER PREPROCEDURAL EXAMIN 04/14/2017 GRACIELA FLORES, ESMER Ackerman Ot 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 04/14/2017 GRACIELA FLORES, ESMER Ackerman Ot Z01.818 ENCOUNTER FOR OTHER PREPROCEDURAL EXAMIN 04/19/2017 GRACIELA FLORES, ESMER Ackerman Ot Z01.818 ENCOUNTER FOR OTHER PREPROCEDURAL EXAMIN 04/19/2017 GRACIELA FLORES, ESMER Ackerman Ot 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 04/19/2017 GRACIELA FLORES, ESMER M Ot Z01.818 ENCOUNTER FOR OTHER PREPROCEDURAL EXAMIN 10/04/2017 GRACIELA FLORES, ESMER Akcerman Ot Z01.818 ENCOUNTER FOR OTHER PREPROCEDURAL EXAMIN 10/04/2017 GRACIELA FLORES, ESMER Ackerman Ot 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 10/04/2017 GRACIELA FLORES, ESMER Ackerman Ot Z01.818 ENCOUNTER FOR OTHER PREPROCEDURAL EXAMIN 10/11/2017 GRACIELA FLORES, ESMER Ackerman Ot L72.3 SEBACEOUS CYST 10/11/2017 GRACIELA FLORES, ESMER Ackerman Ot Z01.818 ENCOUNTER FOR OTHER PREPROCEDURAL EXAMIN 10/13/2017 GRACIELA FLORES, ESMER Ackerman Ot E11.9 TYPE 2 DIABETES MELLITUS WITHOUT COMPLIC 10/13/2017 GRACIELA FLORES, ESMER Ackerman Ot F03.90 UNSPECIFIED DEMENTIA WITHOUT BEHAVIORAL 10/13/2017 GRACIELA FLORES, ESMER Ackerman Ot I10 ESSENTIAL (PRIMARY) HYPERTENSION 10/13/2017 GRACIELA FLORES, ESMER Ackerman Ot J44.9 CHRONIC OBSTRUCTIVE PULMONARY DISEASE, U 10/13/2017 GRACIELA FLORES, ESMER Ackerman Ot L72.3 SEBACEOUS CYST 10/13/2017 GRACIELA FLORES, ESMER M Ot R56.9 UNSPECIFIED CONVULSIONS 10/13/2017 GRACIELA FLORES, ESMER Ackerman Ot Z79.4 AUTOMATIC GRINDER OPERATOR (CURRENT) USE OF INSULIN 10/13/2017 ESMER OWENS MD M Ot Z79.899 OTHER AUTOMATIC GRINDER OPERATOR (CURRENT) DRUG THERAPY 10/13/2017 ESMER OWENS MD M Ot Z87.820 PERSONAL HISTORY OF TRAUMATIC BRAIN INJU 11/08/2017 GRACIELA FLORES, ESMER M Ot E11.9 TYPE 2 DIABETES MELLITUS WITHOUT COMPLIC 11/08/2017 GRACIELA FLORES, ESMER M Ot F03.90 UNSPECIFIED DEMENTIA WITHOUT BEHAVIORAL 11/08/2017 ESMER OWESN MD M Ot I10 ESSENTIAL (PRIMARY) HYPERTENSION 11/08/2017 GRACIELA FLORES, ESMER Ackerman Ot J44.9 CHRONIC OBSTRUCTIVE PULMONARY DISEASE, U 11/08/2017 ESMER OWENS MD Ot L72.3 SEBACEOUS CYST 11/08/2017 ESMER OWENS MD M Ot R56.9 UNSPECIFIED CONVULSIONS 11/08/2017 ESMER OWENS MD M Ot Z79.4 AUTOMATIC GRINDER OPERATOR (CURRENT) USE OF INSULIN 11/08/2017 ESMER OWENS MD M Ot Z79.899 OTHER ALF (CURRENT) DRUG THERAPY 11/08/2017 ESMER OWENS MD Ot Z87.820 PERSONAL HISTORY OF TRAUMATIC BRAIN INJU 11/08/2017 ESMER OWENS MD Ot E11.9 TYPE 2 DIABETES MELLITUS WITHOUT COMPLIC 11/08/2017 GRACIELA FLORES, ESMER M Ot F03.90 UNSPECIFIED DEMENTIA WITHOUT BEHAVIORAL 11/08/2017 ESMER OWENS MD M Ot I10 ESSENTIAL (PRIMARY) HYPERTENSION 11/08/2017 GRACIELA FLORES, ESMER M Ot J44.9 CHRONIC OBSTRUCTIVE PULMONARY DISEASE, U 11/08/2017 ESMER OWENS MD Ot L72.3 SEBACEOUS CYST 11/08/2017 ESMER OWENS MD Ot R56.9 UNSPECIFIED CONVULSIONS 11/08/2017 ESMER OWENS MD M Ot Z79.4 ALF (CURRENT) USE OF INSULIN 11/08/2017 ESMER OWENS MD Ot Z79.899 OTHER ALF (CURRENT) DRUG THERAPY 11/08/2017 ESMER OWENS MD M Ot Z87.820 PERSONAL HISTORY OF TRAUMATIC BRAIN INJU Procedures There is no data. Results Test [...] culture - 02/26/17 19:25 Bacterial urine culture [id number] NRG COLONY COUNT >100,000/ML NRG FTX;REPORTABLE SENSITIVITY [...] Automated blood platelet mean volume measurement 10.8 [foz_us] 7.4-10.4 Automated blood neutrophils/100 leukocytes 56 % [...] measurement by glucometer (mass/volume) 151 mg/dL 70-110 Methicillin resistant Staphylococcus aureus (MRSA) screening culture - 06:30 Methicillin resistant Staphylococcus aureus (MRSA) screening culture NEG NRG Capillary blood glucose measurement by glucometer (mass/volume) - 10/13/17 06: 45 Capillary blood glucose measurement by glucometer (mass/volume) 155 mg/dL 70-110 Encounters ACCT No. Visit Date/Time Discharge Status Pt. Type Provider Facility Loc./Unit Complaint [id number] 10/13/2017 06:12:00 10/13/2017 11:50:00 DIS Outpatient ESMER OWENS MD [facility] SEBACEOUS CYST [id number] 10/11/2017 05:51:00 10/11/2017 12:36:00 DIS Outpatient ESMER OWENS MD [facility] PREOP SEBACEOUS CYST [id number] 02/26/2017 20:36:00 02/28/2017 13:36:00 DIS Inpatient AURORA RUDD MD [facility] 4TH ALTERED MENTAL STATUS,UTI ,RENAL INSUFFICIENCY [id number] 05/02/2016 09:57:00 05/02/2016 14:00:00 DIS Out[facility] [id number] 04/28/2016 05:59:00 04/28/2016 23:59:59 CLS Outpatient ESMER OWENS MD [facility] PREOP NONFUNCTIONING TUBE [id number] 04/14/2016 06:23:00 04/14/2016 23:59:59 CLS Outpatient ESMER OWENS MD [facility] PREOP NONFUNCTION/NON USE [id number] 12/11/2015 00:05:00 12/14/2015 15:36:00 DIS Inpatient CHON HOUSE DO [facility] 4TH RECURRENT SEIZURES [id number] 07/14/2016 09:00:00 08/22/2016 13:56:00 DIS Outpatient MAX CALDERÓN [id number] 07/01/2016 13:14:00 Document Registration [id number] 06/20/2017 12:06:08 06/20/2017 23:59:[address] [facility] Outpatient
--- NOTE | 2018-01-24 11:11 | ED GI ---
General Stated Complaint: N/V/D X 2DAYS Source of Information: Patient, EMS Exam Limitations: No Limitations History of Present Illness Date Seen by Provider: Jan 24, 2018 Time Seen by Provider: 11:10 Initial Comments To ER per EMS from [facility] with reports of nausea vomiting diarrhea for 2 days. Staff had concerns about dehydration. EMS arrived and gave 8 mg of Zofran in route to the hospital. Upon arrival to ER still actively vomiting, oxygen saturation 85% with good waveform consistently even after the retching stopped. He denies abdominal pain. Timing/Duration: 1-2 Days Severity/Quality: Moderate Location: Generalized Abdomen Radiation: No Radiation Activities at Onset: None Allergies and Home Medications Allergies Coded Allergies: No Known Drug Allergies (Verified , 02/26/17) Home Medications Acetaminophen 325 Mg Tablet, 650 MG PO Q4H PRN for PAIN-MILD OR TEMPATURE, ( Reported) TAKES 2 (325 MG) TABLETS Alprazolam 0.25 Mg Tablet, 0.25 MG PO BID PRN for AG, (Reported) Bisacodyl 10 Mg Supp.rect, 10 MG RC DAILY PRN for CONSTIPATION, (Reported) Budesonide/Formoterol Fumarate 10.2 Gm Hfa.aer.ad, 1 PUFF IH BID, (Reported) Cetirizine HCl 10 Mg Tablet, 10 MG PO HS, (Reported) Citalopram Hydrobromide 10 Mg Tablet, 10 MG PO DAILY, (Reported) Divalproex Sodium 250 Mg Tablet.dr, 500 MG PO DAILY, (Reported) TAKES 2 (250 MG) TABLETS Divalproex Sodium 250 Mg Tab.er.24h, 750 MG PO HS, (Reported) TAKES 3 (250 MG) TABLETS Donepezil HCl 5 Mg Tablet, 5 MG PO HS, (Reported) Famotidine 20 Mg Tablet, 20 MG PO BID, (Reported) Gabapentin 100 Mg Capsule, 100 MG PO HS, (Reported) Insulin Detemir 100 Unit/1 Ml Insuln.pen, 10 UNIT SQ DAILY@0700, (Reported) Insulin Lispro 100 Unit/1 Ml Insuln.pen, SQ SLIDING/SCALE, (Reported) 200-250 2 UNITS 251-300 4 UNITS 301-350 6 UNITS 351-400 8 UNITS NOTIFY NURSE IF BS ABOVE 400 OR BELOW 60 Ipratropium/Albuterol Sulfate 3 Ml Ampul.neb, 3 ML IH Q6H PRN for SHORTNESS OF BREATH, (Reported) Loperamide HCl 2 Mg Capsule, 2 MG PO TID PRN for LOOSE STOOLS, (Reported) Memantine HCl 5 Mg Tablet, 5 MG PO BID, (Reported) Metoprolol Tartrate 25 Mg Tablet, 25 MG PO BID, (Reported) HOLD IF PULSE < 60 Multivitamin 1 Each Tablet, 1 TAB PO DAILY, (Reported) Potassium Chloride 20 Meq Tab.er.prt, 20 MEQ PO BID, (Reported) Tamsulosin HCl 0.4 Mg Cap.er.24h, 0.4 MG PO HS, (Reported) Thiamine Mononitrate 100 Mg Tablet, 100 MG PO DAILY, (Reported) Tolterodine Tartrate 4 Mg Cap.er.24h, 4 MG PO BID, (Reported) Tramadol HCl 50 Mg Tablet, 50 MG PO Q12H Prescribed by: ESMER OWENS on 10/13/17 0842 Trazodone HCl 50 Mg Tablet, 50 MG PO HS, (Reported) Patient Home Medication List Home Medication List Reviewed: Yes Review of Systems Constitutional: see HPI, No chills, No fever EENTM: No Symptoms Reported Respiratory: No Symptoms Reported Cardiovascular: No Symptoms Reported Gastrointestinal: See HPI, Denies Abdominal Pain, Diarrhea, Nausea, Vomiting Genitourinary: No Symptoms Reported Musculoskeletal: no symptoms reported Skin: no symptoms reported Psychiatric/Neurological: No Symptoms Reported Endocrine: No Symptoms Reported Past Xvaniwa-Mpyesc-Dfeixm Hx Patient Social History Type Used: Cigarettes Former Smoker, Quit: Sep 22, 2016 2nd Hand Smoke Exposure: No Recent Hopitalizations: No Immunizations Up To Date Tetanus Booster (TDap): Unknown Date of Pneumonia Vaccine: Jul 20, 2015 Date of Influenza Vaccine: Aug 19, 2017 Seasonal Allergies Seasonal Allergies: No Surgeries History of Surgeries: Yes (J tube) Surgeries: Tracheostomy Respiratory History of Respiratory Disorde: Yes (bacterial pneumonia) Respiratory Disorders: COPD Currently Using CPAP: No Currently Using BIPAP: No Cardiovascular History of Cardiac Disorders: No Cardiac Disorders: Hypertension Neurological History of Neurological Disord: Yes (brain injury 2014; new onset seizure ) Neurological Disorders: Dementia, Traumatic Brain Injury Reproductive System Hx Reproductive Disorders: No Genitourinary History of Genitourinary Disor: No Gastrointestinal History of Gastrointestinal Di: No Musculoskeletal History of Musculoskeletal Dis: No Endocrine History of Endocrine Disorders: Yes Endocrine Disorders: Diabetes, Non-Insulin dep HEENT History of HEENT Disorders: No Loss of Vision: Denies Hearing Impairment: Denies Cancer History of Cancer: No Psychosocial History of Psychiatric Problem: No Integumentary History of Skin or Integumenta: No Blood Transfusions History of Blood Disorders: No Adverse Reaction to a Blood Tr: No Family Medical History Significant Family History: Heart Disease, Cancer, Other Conditions/Hx Family Medial History: Alcoholism 19 FATHER, Onset:Unknown Congenital heart disease 19 FATHER, Onset:Unknown FH: cancer G8 SISTER, Onset:Unknown Physical Exam Vital Signs Capillary Refill : General Appearance: WD/WN, no apparent distress HEENT: PERRL/EOMI, normal ENT inspection Neck: non-tender, full range of motion Respiratory: lungs clear, normal breath sounds, no respiratory distress, no accessory muscle use Cardiovascular: regular rate, rhythm, no murmur Gastrointestinal: normal bowel sounds, non tender, soft Neurologic/Psychiatric: alert, normal mood/affect, oriented x 3 Skin: normal color, warm/dry Exam Comments Patient is having visual hallucinations asking to the tania in the Black is. There is no one in black. Focused Exam Evaluation Lactate Level Laboratory Tests 01/24/18 11:15: Lactic Acid Level 1.94 Lactic Acid Level Laboratory Tests Test 01/24/18 11:15 Lactic Acid Level 1.94 MMOL/L (0.50-2.00) Progress/Results/Core Measures Results/Orders Lab Results Laboratory Tests Test 01/24/18 11:10 01/24/18 11:15 01/24/18 11:49 01/24/18 12:55 Range/Units White Blood Count 11.4 H 4.3-11.0 10^3/uL Red Blood Count 3.94 L 4.35-5.85 10^6/uL Hemoglobin 12.6 L 13.3-17.7 G/DL Hematocrit 37 L 40-54 % Mean Corpuscular Volume 93 80-99 FL Mean Corpuscular Hemoglobin 32 25-34 PG Mean Corpuscular Hemoglobin Concent 34 32-36 G/DL Red Cell Distribution Width 12.9 10.0-14.5 % Platelet Count 278 130-400 10^3/uL Mean Platelet Volume 10.7 H 7.4-10.4 FL Neutrophils (%) (Auto) 78 H 42-75 % Lymphocytes (%) (Auto) 13 12-44 % Monocytes (%) (Auto) 8 0-12 % Eosinophils (%) (Auto) 0 0-10 % Basophils (%) (Auto) 0 0-10 % Neutrophils # (Auto) 8.9 H 1.8-7.8 X 10^3 Lymphocytes # (Auto) 1.5 1.0-4.0 X 10^3 Monocytes # (Auto) 1.0 0.0-1.0 X 10^3 Eosinophils # (Auto) 0.0 0.0-0.3 10^3/uL Basophils # (Auto) 0.0 0.0-0.1 10^3/uL Sodium Level 137 135-145 MMOL/L Potassium Level 4.3 3.6-5.0 MMOL/L Chloride Level 100 98-107 MMOL/L Carbon Dioxide Level 30 21-32 MMOL/L Anion Gap 7 5-14 MMOL/L Blood Urea Nitrogen 22 H 7-18 MG/DL Creatinine 1.36 H 0.60-1.30 MG/DL Estimat Glomerular Filtration Rate 52 BUN/Creatinine Ratio 16 Glucose Level 308 H 70-105 MG/DL Calcium Level 9.1 8.5-10.1 MG/DL Total Bilirubin 0.5 0.1-1.0 MG/DL Aspartate Amino Transf (AST/SGOT) 13 5-34 U/L Alanine Aminotransferase (ALT/SGPT) 16 0-55 U/L Alkaline Phosphatase 62 40-136 U/L Troponin I < 0.30 <0.30 NG/ML B-Type Natriuretic Peptide 199.1 H <100.0 PG/ML Total Protein 7.5 6.4-8.2 GM/DL Albumin 4.0 3.2-4.5 GM/DL Lipase 6 L 8-78 U/L Lactic Acid Level 1.94 0.50-2.00 MMOL/L Prothrombin Time 14.6 12.2-14.7 SEC INR Comment 1.1 0.8-1.4 Urine Color YELLOW Urine Clarity CLEAR Urine pH 5 5-9 Urine Specific [place] 1.025 H 1.016-1.022 Urine Protein 1+ H NEGATIVE Urine Glucose (UA) 4+ H NEGATIVE Urine Ketones 3+ H NEGATIVE Urine Nitrite NEGATIVE NEGATIVE Urine Bilirubin NEGATIVE NEGATIVE Urine Urobilinogen 1 NORMAL MG/DL Urine Leukocyte Esterase 3+ H NEGATIVE Urine RBC (Auto) 3+ H NEGATIVE Urine RBC 2-5 H /HPF Urine WBC 25-50 H /HPF Urine Squamous Epithelial Cells RARE /HPF Urine Crystals NONE /LPF Urine Bacteria TRACE /HPF Urine Casts PRESENT /LPF Urine Hyaline Casts 2-5 H /LPF Urine Mucus SMALL H /LPF Urine Culture Indicated YES My Orders Orders - KETAN MORA APRN Blood Culture (01/24/18 11:08) Cbc With Automated Diff (01/24/18 11:08) Comprehensive Metabolic Panel (01/24/18 11:08) Lipase (01/24/18 11:08) Ua Culture If Indicated (01/24/18 11:08) Chest 1 View, Ap/Pa Only (01/24/18 11:08) Saline Lock/Iv-Start (01/24/18 11:08) BNP (01/24/18 11:08) Protime With Inr (01/24/18 11:08) Lactic Acid Analyzer (01/24/18 11:08) Ns Iv 1000 Ml (Sodium Chloride 0.9%) (01/24/18 11:15) Promethazine Injection (Phenergan Injec (01/24/18 11:15) Ekg Tracing (01/24/18 11:34) Troponin I (01/24/18 11:34) Ct Head Wo (01/24/18 11:35) Ct Abdomen/Pelvis Wo (01/24/18 11:35) Urine Culture (01/24/18 12:55) Piperacillin Sodium/Tazobactam (Zosyn Vi (01/24/18 14:30) Iron Tibc %Sat & Ferritin (01/24/18 15:09) Medications Given in ED Current Medications Medications Dose Ordered Sig/Guille Route Start Time Stop Time Status Last Admin Dose Admin Piperacillin Sod/ Tazobactam Sod 4.5 gm/Sodium Chloride 100 ml @ 200 mls/hr ONCE ONCE IV 01/24/18 14:30 01/24/18 14:59 DC 01/24/18 14:35 200 MLS/HR Promethazine HCl 12.5 mg ONCE ONCE IVP 01/24/18 11:15 01/24/18 11:16 DC 01/24/18 11:30 12.5 MG Diagnostic Imaging Diagonstic Imaging: CT Comments NAME: DUSTY BECKHAM MED REC#: [id number] PT STATUS: REG ER : 1945 PHYSICIAN: KETAN MORA APRN ADMIT DATE: 01/24/18/ER Signed Date of Exam:01/24/18 CHEST 1 VIEW, AP/PA ONLY PATIENT HISTORY: Nodular, vomiting, diarrhea for 2 days.. TECHNIQUE: Single frontal view of the chest COMPARISON: 02/26/2017 FINDINGS: There is mild elevation of the right hemidiaphragm compared to the prior study. There are increased airspace opacities in right lung base, with nodular opacity seen in the left hilar region. No pleural effusion or pneumothorax is seen. The cardio mediastinal silhouette is mildly prominent, likely partially due to rotation and decreased inspiration. There is mild central vascular congestion. IMPRESSION: 1. Increased airspace opacities in right lung base, may represent atelectasis or infiltrate. 2. New left hilar nodular opacity. Recommend short interval followup to exclude persistent pulmonary nodule. 3. Mild cardio megaly with central vascular congestion. Dictated by: Dictated on workstation # [id number] Dict: 01/24/18 1153 Trans: 01/24/18 1201 [facility] [id number] Interpreted by: DEANNE PRESLEY MD Electronically signed by: DEANNE PRESLEY MD 01/24/18 1201 Departure Communication (Admissions) Time/Spoke to Admitting Phy: 15:11 Communication I discussed with Dr. Singh. We will admit the patient, cefepime and vancomycin Impression Impression: Primary Impression: Right lower lobe pneumonia Additional Impressions: Acute renal insufficiency Nausea vomiting and diarrhea Hallucinations Hypoxia Disposition: ADMITTED INPATIENT Condition: Stable Admissions Decision to Admit Reason: Admit from ER (General) Decision to Admit/Date: Jan 24, 2018 Time/Decision to Admit Time: 12:19 Departure-Patient Inst. Referrals: AURORA SINGH MD (PCP/Family) Primary Care Physician KETAN MORA APRN Jan 24, 2018 11:11
[2018-01-24] MEDS ORDERED: NS IV 1000 ML 1,000 ML IV SCH (11:15)
[2018-01-24] MEDS ORDERED: PROMETHAZINE INJ 25 MG/ML (PHENERGAN) AMP IVP ONE (11:15)
[2018-01-24 11:20] LABS: BASOPHILS % (AUTO) 0 % (0-10); EOSINOPHILS % (AUTO) 0 % (0-10); HEMATOCRIT 37 % (40-54); HEMOGLOBIN 12.6 G/DL (13.3-17.7); LYMPHOCYTES # (AUTO) 1.5 X 10^3 (1.0-4.0); LYMPHOCYTES % (AUTO) 13 % (12-44); MEAN CORPUSCULAR HEMOGLOBIN 32 PG (25-34); MEAN CORPUSCULAR HGB CONC 34 G/DL (32-36); MEAN CORPUSCULAR VOLUME 93 FL (80-99); MEAN PLATELET VOLUME 10.7 FL (7.4-10.4); MONOCYTES % (AUTO) 8 % (0-12); NEUTROPHILS # (AUTO) 8.9 X 10^3 (1.8-7.8); NEUTROPHILS % (AUTO) 78 % (42-75); PLATELET COUNT 278 10^3/uL (130-400); RED BLOOD COUNT 3.94 10^6/uL (4.35-5.85); RED CELL DISTRIBUTION WIDTH 12.9 % (10.0-14.5); WHITE BLOOD COUNT 11.4 10^3/uL (4.3-11.0)
[2018-01-24 11:47] LABS: BILIRUBIN,TOTAL 0.5 MG/DL (0.1-1.0); CALCIUM 9.1 MG/DL (8.5-10.1); CREATININE SERUM 1.36 MG/DL (0.60-1.30); POTASSIUM 4.3 MMOL/L (3.6-5.0); TOTAL PROTEIN 7.5 GM/DL (6.4-8.2)
--- NOTE | 2018-01-24 11:58 | Diagnostic Imaging Report ---
PATIENT HISTORY: Nodular, vomiting, diarrhea for 2 days.. TECHNIQUE: Single frontal view of the chest COMPARISON: 02/26/2017 FINDINGS: There is mild elevation of the right hemidiaphragm compared to the prior study. There are increased airspace opacities in right lung base, with nodular opacity seen in the left hilar region. No pleural effusion or pneumothorax is seen. The cardio mediastinal silhouette is mildly prominent, likely partially due to rotation and decreased inspiration. There is mild central vascular congestion. IMPRESSION: 1. Increased airspace opacities in right lung base, may represent atelectasis or infiltrate. 2. New left hilar nodular opacity. Recommend short interval followup to exclude persistent pulmonary nodule. 3. Mild cardio megaly with central vascular congestion. Dictated by: Dictated on workstation # [id number]
[2018-01-24 12:04] LABS: INR 1.1 (0.8-1.4); PROTHROMBIN TIME PATIENT 14.6 SEC (12.2-14.7)
[2018-01-24 13:03] LABS: BILIRUBIN,URINE NEGATIVE (NEGATIVE); CLARITY,URINE CLEAR; COLOR,URINE YELLOW; GLUCOSE, URINE (UA) 4+ (NEGATIVE); KETONES,URINE 3+ (NEGATIVE); LEUKOCYTE ESTERASE ,URINE 3+ (NEGATIVE); NITRITE,URINE NEGATIVE (NEGATIVE); PH,URINE 5 (5-9); PROTEIN,URINE 1+ (NEGATIVE); UROBILINOGEN,URINE 1 MG/DL (NORMAL)
[2018-01-24 13:34] LABS: BACTERIA,URINE TRACE /HPF; SQUAMOUS EPITHELIAL CELL,UR RARE /HPF; WBC,URINE 25-50 /HPF
--- NOTE | 2018-01-24 14:02 | Diagnostic Imaging Report ---
PROCEDURE: CT head without contrast. TECHNIQUE: Multiple contiguous axial images were obtained through the brain without the use of intravenous contrast. INDICATION: Nausea and vomiting. COMPARISON: 02/26/2017. FINDINGS: No acute intracranial hemorrhage, mass effect or edema is seen. There is moderate diffuse atrophy. Prominence of the ventricles and sulci are similar to the prior study. Areas of encephalomalacia involving the bifrontal region and right temporal lobe appear similar to the prior study. Areas of hypodensity in the periventricular white matter are unchanged and likely related to chronic vascular ischemic disease. IMPRESSION: No acute intracranial abnormalities demonstrated. No significant interval change from the prior study. Chronic senescent changes as described. Dictated by: Dictated on workstation # [id number]
[2018-01-24] MEDS ORDERED: PIPERACILLIN SODIUM/TAZOBACTAM 4.5 GM in NS (IVPB) 100 ML IV ONE (14:30)
--- NOTE | 2018-01-24 15:17 | Diagnostic Imaging Report ---
PROCEDURE: CT abdomen and pelvis without contrast. TECHNIQUE: Multiple contiguous axial images were obtained through the abdomen and pelvis without the use of intravenous contrast. INDICATION: Nausea and vomiting. COMPARISON: There are no prior studies available for comparison. FINDINGS: The liver does not appear to be enlarged and there is no focal mass involving the liver. The biliary tree is not abnormally dilated. The spleen, pancreas, adrenals, gallbladder, aorta and inferior vena cava are unremarkable for an acute abnormality. The stomach is partially filled with fluid and consequently difficult to assess. There is perinephric stranding about both kidneys, particularly the left kidney. This finding is nonspecific. This could be related to prior episodes of inflammation/obstruction. The possibility that there is an element of pyelonephritis present should still be considered. There are small calculi in both renal markel but there is no clearance for obstruction of either collecting system by a calculus. There is some gas in both large and small bowel in a nonspecific fashion. There is no evidence for bowel obstruction. There is a fair amount of fecal material in the ascending and transverse colon. The appendix was visualized and is not abnormally thickened. There is no pelvic mass or free fluid collection noted. The urinary bladder and prostate gland are grossly unremarkable. The bone windows show no sign of a fracture or destructive lesion. The images through the lung bases suggests that there is a 1.5 cm nodule near the right hemidiaphragm. There may also be another nodule in the medial aspect of the left lower lobe measuring 1 cm. There is a question of a nodule in the right infrahilar region as well. The chest exam performed earlier today in conjunction with this study also noted a new left hilar nodular opacity. These nodular densities are worrisome for neoplasm and I would recommend that CT of the chest be performed for further study. Impression: 1. There is no acute abnormality of the abdomen or pelvis. 2. There is slight distortion of the perinephric fat about both kidneys, particularly the left kidney is of uncertain etiology. Considerations and considerations as above. 3. The nodular densities in the lung base are worrisome for neoplasm. CT would be recommended for further study. 4. These results were discussed with Dilan Denson APRN. Dictated by: Dictated on workstation # [id number]
[2018-01-24 15:45] VITALS: BP 136/72
[2018-01-24] MEDS ORDERED: LIDO1ADH51 TD (16:17)
[2018-01-24] MEDS ORDERED: DESM0.2T2 PO (16:17)
[2018-01-24] MEDS ORDERED: DIVA250T2 PO (16:17)
[2018-01-24] MEDS ORDERED: CATHETER FLUSH 10 ML SYR IV PRN (16:45)
[2018-01-24] MEDS: NS IV 1000 ML 1,000 ML IV SCH (16:48)
[2018-01-24] MEDS: CEFEPIME 2 GM/NS 100 ML IVPB IV SCH ×2 (16:48)
[2018-01-24 16:56] VITALS: BP 136/72
[2018-01-24] MEDS ORDERED: RT-ALBUTEROL/IPRATROPIUM 3 ML (DUONEB) VIAL INH PRN (17:00)
[2018-01-24] MEDS ORDERED: VANCOMYCIN 2000 MG/NS 500 ML IVPB IV NR ×2 (17:00)
--- NOTE | 2018-01-24 18:56 | History & Physicial ---
History of Present Illness History of Present Illness Reason for visit/HPI PT IS A 72 Y/O MALE WHO IS KNOWN TO ME FROM CLINIC. HE PRESENTED TO THE EMERGENCY DEPARTMENT WITH CONFUSION, PERSISTENT EMESIS AND WAS FOUND TO HAVE A UTI WELL PNEUMONIA. THERE WERE OTHER ABNORMALITIES ON HIS CHEST ON CT SCAN OF ABDOMEN AND PELVIS - PLANNING ON CT SCAN OF CHEST INPATIENT. Date of Admission Jan 24, 2018 at 15:16 Date Seen by Provider: Jan 24, 2018 Time Seen by Provider: 18:50 I consulted on this patient on 01/24/18 18:50 Attending Physician Aurora Singh MD Admitting Physician Aurora Singh MD Consult Allergies and Home Medications Allergies Coded Allergies: No Known Drug Allergies (Verified , 02/26/17) Home Medications Acetaminophen 325 Mg Tablet, 650 MG PO Q4H PRN for MILD PAIN OR TEMP>100, ( Reported) TAKES 2 (325 MG) TABLETS Alprazolam 0.25 Mg Tablet, 0.25 MG PO BID PRN for ANXIETY/AGITATION/RESTLESSNESS , (Reported) Bisacodyl 10 Mg Supp.rect, 10 MG RC DAILY PRN for CONSTIPATION-4TH LINE, ( Reported) Budesonide/Formoterol Fumarate 10.2 Gm Hfa.aer.ad, 1 PUFF IH BID, (Reported) Cetirizine HCl 10 Mg Tablet, 10 MG PO HS, (Reported) Citalopram Hydrobromide 10 Mg Tablet, 10 MG PO DAILY, (Reported) Desmopressin Acetate 0.2 Mg Tablet, 0.6 MG PO HS, (Reported) TAKES 3 (0.2MG) TABLETS Divalproex Sodium 250 Mg Tablet.dr, 500 MG PO DAILY, (Reported) TAKES 2 (250 MG) TABLETS Divalproex Sodium 250 Mg Tablet.dr, 750 MG PO HS, (Reported) TAKES 3 (250MG) TABLETS Donepezil HCl 5 Mg Tablet, 5 MG PO HS, (Reported) Famotidine 20 Mg Tablet, 20 MG PO BID, (Reported) Gabapentin 100 Mg Capsule, 100 MG PO HS, (Reported) Insulin Detemir 100 Unit/1 Ml Insuln.pen, 10 UNIT SQ DAILY, (Reported) Insulin Lispro 100 Unit/1 Ml Insuln.pen, SQ BID, (Reported) 200-250 2 UNITS 251-300 4 UNITS 301-350 6 UNITS 351-400 8 UNITS NOTIFY NURSE IF BS ABOVE 400 OR BELOW 60 Ipratropium/Albuterol Sulfate 3 Ml Ampul.neb, 3 ML NEB Q6H PRN for SHORTNESS OF BREATH, (Reported) Lidocaine/Menthol 1 Each Adh..patch, 1 PATCH TD Q8H PRN for BACK PAIN, (Reported ) Loperamide HCl 2 Mg Capsule, 2 MG PO TID PRN for LOOSE STOOLS, (Reported) Memantine HCl 5 Mg Tablet, 5 MG PO BID, (Reported) Metoprolol Tartrate 25 Mg Tablet, 25 MG PO BID, (Reported) HOLD IF PULSE < 60 Multivitamin 1 Each Tablet, 1 TAB PO DAILY, (Reported) Potassium Chloride 20 Meq Tab.er.prt, 20 MEQ PO BID, (Reported) Tamsulosin HCl 0.4 Mg Cap.er.24h, 0.4 MG PO 1800, (Reported) Thiamine Mononitrate 100 Mg Tablet, 100 MG PO DAILY, (Reported) Tolterodine Tartrate 4 Mg Cap.er.24h, 4 MG PO BID, (Reported) Trazodone HCl 50 Mg Tablet, 50 MG PO HS, (Reported) Patient Home Medication List Home Medication List Reviewed: Yes Past Gwwtnhd-Cptwyn-Vbjyxp Hx Patient Social History Marrital Status: single Living Status: LIVES IN ASSISTED L[facility]ING AT [facility] Employed/Student: retired Alcohol Use: Past History Alcohol Beverage of Choice: Beer Recreational Drug Use: No Smoking Status: Current Everyday Smoker Former Smoker, Quit: Sep 22, 2016 Type Used: Cigarettes 2nd Hand Smoke Exposure: No Physical Abuse Screen: No Sexual Abuse: No Recent Foreign Travel: No Contact w/other who traveled: No Recent Hopitalizations: No Recent Infectious Disease Expo: No Immunizations Up To Date Tetanus Booster (TDap): Unknown Date of Pneumonia Vaccine: Jul 20, 2015 Date of Influenza Vaccine: Aug 19, 2017 Seasonal Allergies Seasonal Allergies: No Surgeries Yes (J tube) Tracheostomy Respiratory Yes (pneumonia) Pneumonia Currently Using CPAP: No Currently Using BIPAP: No Cardiovascular Yes Hypertension Neurological Yes (brain injury 2014; 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) Dementia, Traumatic Brain Injury Reproductive System Hx Reproductive Disorders: No Sexually Transmitted Disease: No HIV/AIDS: No Genitourinary Yes UTI-Chronic Gastrointestinal No Musculoskeletal Yes Arthritis Endocrine History of Endocrine Disorders: Yes Endocrine Disorders: Diabetes, Non-Insulin dep HEENT History of HEENT Disorders: Yes HEENT Disorders: Cataract, Glaucoma Loss of Vision: Denies Hearing Impairment: Denies Cancer No Psychosocial History of Psychiatric Problem: Yes (HX OF TRAUMATIC BRAIN INJURY, STROKE, DEMENTIA WITH BEHAVIOR DISORDER) Integumentary History of Skin or Integumenta: No Blood Transfusions History of Blood Disorders: No Adverse Reaction to a Blood Tr: No Reviewed Nursing Assessment Reviewed/Agree w Nursing PMH: Yes Family Medical History Significant Family History: Heart Disease, Cancer, Other Conditions/Hx Family Hx: Alcoholism 19 FATHER, Onset:Unknown Congenital heart disease 19 FATHER, Onset:Unknown FH: cancer G8 SISTER, Onset:Unknown Constitutional: No chills, fever, malaise, weakness EENTM: No hoarseness, No mouth pain, No nose pain, No throat pain Respiratory: cough, dyspnea on exertion, short of breath Cardiovascular: No chest pain, No edema, No palpitations Gastrointestinal: No abdominal pain, nausea, vomiting Genitourinary: no symptoms reported Musculoskeletal: muscle weakness Skin: no symptoms reported Psychiatric/Neurological: Denies Anxiety, Depressed, Weakness All Other Systems Reviewed Negative Unless Noted: Yes Physical Exam Vital Signs Vital Signs - First Documented 01/24/18 01/24/18 01/24/18 11:04 15:45 16:56 Temp 97.0 Pulse 91 Resp 16 B/P (MAP) 148/102 (117) Pulse Ox 94 O2 Delivery Nasal Cannula O2 Flow Rate 2.00 FiO2 23 Capillary Refill : Less Than 3 Seconds General Appearance: No Apparent Distress, WD/WN Eyes: Bilateral Eye Normal Inspection, Bilateral Eye PERRL, Bilateral Eye EOMI HEENT: PERRL/EOMI, Pharynx Normal Neck: Full Range of Motion, Supple Respiratory: Chest Non Tender, Crackles (FAINT IN BASES) Cardiovascular: Regular Rate, Rhythm, No Edema Gastrointestinal: Normal Bowel Sounds, No Organomegaly, Non Tender, Soft Rectal: Deferred Back: Normal Inspection Extremity: Normal Capillary Refill, Non Tender, No Calf Tenderness, No Pedal Edema Neurologic/Psychiatric: Alert, Normal Mood/Affect, Other (ORIENTED TO PERSON, PLACE, NOT TIME - PT KNEW WHO THIS PROVIDER WAS BY NAME) Skin: Warm/Dry Assessment/Plan Assessment and Plan PNEUMONIA URINARY TRACT INFECTION DIABETES MELLITUS HYPERTENSION WEAKNESS NAUSEA AND EMESIS ACUTE RENAL INSUFFICIENCY CONFUSION DEMENTIA GERD URINARY INCONTINENCE PNEUMONIA - STARTED PNEUMONIA PROTOCOL - VANCOMYCIN AND CEFEPIME - PT HAD ENTEROCOCCUS ON LAST UTI AND WAS STARTED ON TREATMENT FOR HIS PNEUMONIA WHICH WOULD CROSS COVER FOR ENTEROCOCCAL INFECTION. URINARY TRACT INFECTION - LAST UTI IN HOSPITAL WAS ENTEROCOCCAL - THEREFORE PT STARTED ON VANCOMYCIN AND CEFEPIME. WILL WAIT ON CULTURE REPORT TO FURTHER NARROW TREATMENT. DIABETES MELLITUS - RESUME HOME MEDICATIONS HYPERTENSION - RESUME HOME MEDICATIONS - MONITOR BLOOD PRESSURE REPORTS. WEAKNESS WITH NAUSEA AND EMESIS - PRN ZOFRAN - SUPPORTIVE CARE, START PHYSICAL THERAPY WHEN PT FEELING BETTER. ACUTE RENAL INSUFFICIENCY - SHOULD IMPROVE WITH HYDRATION. CONFUSION - DEMENTIA- CHRONIC - RESTART NAMENDA - HOLD ARICEPT IT CAN CAUSE NAUSEA - MONITOR HIS SYMPTOMS - HE APPEARS TO BE LESS CONFUSED THAN REPORTED BY EMERGENCY DEPARTMENT - SUSPECT THAT HYDRATION HAS HELPED HIS SYMPTOMS. PULMONARY NODULES ON ABDOMINAL CT SCAN- CHECK CT OF CHEST TONIGHT OR TOMORROW MORNING. - WILL THEN DISCUSS WITH HIS SISTER THE NEXT STEP DEPENDING ON THE CT SCAN REPORT. GERD - RESTART PO PEPCID URINARY INCONTINENCE -RESTART HOME MEDS. DVT PROPHYLAXIS WITH LOVENOX GI PROPHYLAXIS WITH HIS PO PEPCID Problems: Admission Diagnosis PNEUMONIA URINARY TRACT INFECTION DIABETES MELLITUS HYPERTENSION WEAKNESS NAUSEA AND EMESIS ACUTE RENAL INSUFFICIENCY CONFUSION DEMENTIA GERD URINARY INCONTINENCE Admission Status: Inpatient Order (span 2 midnights) Reason for Inpatient Admission: PT HAS PNEUMONIA, UTI, DEHYDRATION, POSSIBLE LUNG MASS AND WILL REQUIRE MORE THAN TWO MIDNIGHTS IN THE HOSPITAL FOR CONTROL OF INFECTION Clinical Quality Measures DVT/VTE Risk/Contraindication: Risk Factor Score Per Nursin RFS Level Per Nursing on Admit: 4+=Very High AURORA SINGH MD Jan 24, 2018 18:56
[2018-01-24] MEDS ORDERED: LOPERAMIDE 2 MG (IMODIUM) CAP PO PRN (19:00)
[2018-01-24] MEDS ORDERED: BISACODYL 10 MG SUPP (DULCOLAX) RC PRN (19:00)
--- NOTE | 2018-01-24 19:48 | Diagnostic Imaging Report ---
PROCEDURE: CT chest without contrast. TECHNIQUE: Multiple contiguous axial images were obtained through the chest without the use of intravenous contrast. INDICATION: Lung nodule. No chest complaints. COMPARISON STUDY: CT of the abdomen and pelvis from today. FINDINGS: The examination demonstrates several bilateral pulmonary nodules. There is a 2.9 cm mass in the right upper lobe adjacent to the anterior mediastinum. A 5.1 x 5.2 cm mass is present in the superior mediastinum just to the right and anterior to the trachea. There is a 3 cm subcarinal lymph node. An enlarged right hilar lymph node is present. Measurements are a little difficult because of the lack of contrast and adjacent vessels. This probably measures 3.2 cm. There are several small nodules in both lungs. No pleural or pericardial effusions are present. No axillary adenopathy is present. The airway is clear. No osseous metastases are seen. IMPRESSION: There are several bilateral pulmonary nodules. The largest one is in the right upper lobe. Enlarged mediastinal and right hilar lymph nodes are present. The largest one measures 5.2 cm. Dictated by: Dictated on workstation # [id number]
[2018-01-24 20:15] VITALS: BP 137/76
[2018-01-24] MEDS ORDERED: DESMOPRESSIN 0.2 MG TAB (NON-FORMULARY) PO SCH (21:00)
[2018-01-24] MEDS: inSUlin (REGULAR) HUMAN 1 UNIT/0.01 ML (CHARGE PER UNIT) SC SCH (21:01)
[2018-01-24] MEDS: FAMOTIDINE 20 MG (PEPCID) TABLET PO SCH (21:17)
[2018-01-24] MEDS: DIVALPROEX 250 MG DELAYED RELEASE (DEPAKOTE) TAB PO SCH (21:17)
[2018-01-24] MEDS: TOLTERODINE LA 4 MG (DETROL) CAP PO SCH (21:17)
[2018-01-24] MEDS: meTOprolol TARTRATE 25 MG (LOPRESSOR) TABLET PO SCH (21:17)
[2018-01-24] MEDS: DIVALPROEX 500 MG DELAYED RELEASE (DEPAKOTE) TAB PO SCH (21:17)
[2018-01-24] MEDS: TAMSULOSIN 0.4 MG (FLOMAX) CAP PO SCH (21:17)
[2018-01-24] MEDS: MEMANTINE 5 MG (NAMENDA) TABLET PO SCH (21:18)
[2018-01-24] MEDS: LORATADINE (CLARITIN) 10 MG TAB PO SCH (21:18)
[2018-01-24] MEDS: GABAPENTIN 100 MG (NEURONTIN) CAP PO SCH (21:18)
[2018-01-24] MEDS: KCL 20 MEQ TAB (K-DUR) PO SCH (21:18)
[2018-01-24] MEDS: RT-ADVAIR HFA 45/21 MCG PER PUFF IH SCH (22:18)
[2018-01-24] MEDS: RT-ALBUTEROL/IPRATROPIUM 3 ML (DUONEB) VIAL INH SCH (22:19)
[2018-01-24] MEDS: ALPRAZolam 0.25 MG (XANAX) TAB PO PRN (22:49)
[2018-01-24] MEDS: ACETAMINOPHEN 325 MG TABLET PO PRN (22:49)
[2018-01-25] VITALS: BP 110/60
[2018-01-25] MEDS: RT-ALBUTEROL/IPRATROPIUM 3 ML (DUONEB) VIAL INH SCH ×4 (03:10→21:49)
[2018-01-25] MEDS: NS IV 1000 ML 1,000 ML IV SCH ×3 (03:43→17:16)
[2018-01-25 04:15] VITALS: BP 111/63
[2018-01-25 06:23] LABS: BASOPHILS % (AUTO) 0 % (0-10); EOSINOPHILS # (AUTO) 0.2 10^3/uL (0.0-0.3); EOSINOPHILS % (AUTO) 2 % (0-10); HEMATOCRIT 34 % (40-54); HEMOGLOBIN 11.1 G/DL (13.3-17.7); LYMPHOCYTES # (AUTO) 1.8 X 10^3 (1.0-4.0); LYMPHOCYTES % (AUTO) 22 % (12-44); MEAN CORPUSCULAR HEMOGLOBIN 32 PG (25-34); MEAN CORPUSCULAR HGB CONC 33 G/DL (32-36); MEAN CORPUSCULAR VOLUME 96 FL (80-99); MEAN PLATELET VOLUME 10.8 FL (7.4-10.4); MONOCYTES # (AUTO) 0.9 X 10^3 (0.0-1.0); MONOCYTES % (AUTO) 11 % (0-12); NEUTROPHILS # (AUTO) 5.4 X 10^3 (1.8-7.8); NEUTROPHILS % (AUTO) 65 % (42-75); PLATELET COUNT 262 10^3/uL (130-400); RED CELL DISTRIBUTION WIDTH 13.2 % (10.0-14.5); WHITE BLOOD COUNT 8.4 10^3/uL (4.3-11.0)
[2018-01-25] MEDS: KCL 20 MEQ TAB (K-DUR) PO SCH ×2 (06:23→17:13)
[2018-01-25] MEDS: inSUlin (REGULAR) HUMAN 1 UNIT/0.01 ML (CHARGE PER UNIT) SC SCH ×4 (06:27→21:29)
[2018-01-25 06:40] LABS: ALANINE AMINOTRANSFERASE 16 U/L (0-55); ALBUMIN 3.3 GM/DL (3.2-4.5); ALKALINE PHOSPHATASE 50 U/L (40-136); BILIRUBIN,TOTAL 0.4 MG/DL (0.1-1.0); BUN/CREATININE RATIO 14; CALCIUM 8.5 MG/DL (8.5-10.1); CARBON DIOXIDE 25 MMOL/L (21-32); CHLORIDE 107 MMOL/L (98-107); CREATININE SERUM 1.11 MG/DL (0.60-1.30); GFR ESTIMATED > 60; GLUCOSE 213 MG/DL (70-105); POTASSIUM 4.4 MMOL/L (3.6-5.0); SODIUM 140 MMOL/L (135-145)
[2018-01-25 08:00] VITALS: BP 144/60
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
[2018-01-25] MEDS: RT-ADVAIR HFA 45/21 MCG PER PUFF IH SCH ×2 (08:53→21:49)
[2018-01-25] MEDS ORDERED: inSUlin DETERMIR 1 UNIT/0.01 ML (LEVEMIR) CHARGE PER UNIT SQ SCH (09:00)
--- NOTE | 2018-01-25 09:10 | Pulmonary Consultation ---
History of Present Illness History of Present Illness Date of Consultation 01/25/18 09:05 Time Seen by Provider: 09:05 Date of Admission History of Present Illness 72yo presented to ED secondary confusion, n/v/d. Pt was found to have hypoxia with Sp02 of 85% and dehydration. CT scan of abdomen was done in ED secondary to N/V and a lung mass was picked up. CT of Chest shows bilateral nodules with large mediastinal lymphadenopathy. Currently pt is being treated with abx for pneumonia and UTI. Dr. Singh is consulting or for pulmonary management and lung biopsy. Allergies and Home Medications Allergies Coded Allergies: No Known Drug Allergies (Verified , 02/26/17) Home Medications Acetaminophen 325 Mg Tablet, 650 MG PO Q4H PRN for MILD PAIN OR TEMP>100, ( Reported) TAKES 2 (325 MG) TABLETS Alprazolam 0.25 Mg Tablet, 0.25 MG PO BID PRN for ANXIETY/AGITATION/RESTLESSNESS , (Reported) Bisacodyl 10 Mg Supp.rect, 10 MG RC DAILY PRN for CONSTIPATION-4TH LINE, ( Reported) Budesonide/Formoterol Fumarate 10.2 Gm Hfa.aer.ad, 1 PUFF IH BID, (Reported) Cetirizine HCl 10 Mg Tablet, 10 MG PO HS, (Reported) Citalopram Hydrobromide 10 Mg Tablet, 10 MG PO DAILY, (Reported) Desmopressin Acetate 0.2 Mg Tablet, 0.6 MG PO HS, (Reported) TAKES 3 (0.2MG) TABLETS Divalproex Sodium 250 Mg Tablet.dr, 500 MG PO DAILY, (Reported) TAKES 2 (250 MG) TABLETS Divalproex Sodium 250 Mg Tablet.dr, 750 MG PO HS, (Reported) TAKES 3 (250MG) TABLETS Donepezil HCl 5 Mg Tablet, 5 MG PO HS, (Reported) Famotidine 20 Mg Tablet, 20 MG PO BID, (Reported) Gabapentin 100 Mg Capsule, 100 MG PO HS, (Reported) Insulin Detemir 100 Unit/1 Ml Insuln.pen, 10 UNIT SQ DAILY, (Reported) Insulin Lispro 100 Unit/1 Ml Insuln.pen, SQ BID, (Reported) 200-250 2 UNITS 251-300 4 UNITS 301-350 6 UNITS 351-400 8 UNITS NOTIFY NURSE IF BS ABOVE 400 OR BELOW 60 Ipratropium/Albuterol Sulfate 3 Ml Ampul.neb, 3 ML NEB Q6H PRN for SHORTNESS OF BREATH, (Reported) Lidocaine/Menthol 1 Each Adh..patch, 1 PATCH TD Q8H PRN for BACK PAIN, (Reported ) Loperamide HCl 2 Mg Capsule, 2 MG PO TID PRN for LOOSE STOOLS, (Reported) Memantine HCl 5 Mg Tablet, 5 MG PO BID, (Reported) Metoprolol Tartrate 25 Mg Tablet, 25 MG PO BID, (Reported) HOLD IF PULSE < 60 Multivitamin 1 Each Tablet, 1 TAB PO DAILY, (Reported) Potassium Chloride 20 Meq Tab.er.prt, 20 MEQ PO BID, (Reported) Tamsulosin HCl 0.4 Mg Cap.er.24h, 0.4 MG PO 1800, (Reported) Thiamine Mononitrate 100 Mg Tablet, 100 MG PO DAILY, (Reported) Tolterodine Tartrate 4 Mg Cap.er.24h, 4 MG PO BID, (Reported) Trazodone HCl 50 Mg Tablet, 50 MG PO HS, (Reported) Past Otkrunj-Ututkj-Okzybm Hx Patient Social History Alcohol Use: Past History Alcohol Beverage of Choice: Beer Recreational Drug Use: No Smoking Status: Current Everyday Smoker Type Used: Cigarettes Former Smoker, Quit: Sep 22, 2016 2nd Hand Smoke Exposure: No Recent Foreign Travel: No Contact w/Someone Who Travel: No Recent Infectious Disease Expo: No Recent Hopitalizations: No Immunizations Up To Date Tetanus Booster (TDap): Unknown Date of Pneumonia Vaccine: Jul 20, 2015 Date of Influenza Vaccine: Aug 19, 2017 Seasonal Allergies Seasonal Allergies: No Surgeries History of Surgeries: Yes (J tube) Surgeries: Tracheostomy Respiratory History of Respiratory Disorde: Yes (pneumonia) Respiratory Disorders: Pneumonia, COPD Currently Using CPAP: No Currently Using BIPAP: No Cardiovascular History of Cardiac Disorders: Yes Cardiac Disorders: Hypertension Neurological History of Neurological Disord: Yes (brain injury 2014; new onset seizure ) Neurological Disorders: Dementia, Traumatic Brain Injury Reproductive System Hx Reproductive Disorders: No Sexually Transmitted Disease: No HIV/AIDS: No Genitourinary History of Genitourinary Disor: Yes Genitourinary Disorders: UTI-Chronic Gastrointestinal History of Gastrointestinal Di: No Musculoskeletal History of Musculoskeletal Dis: Yes Musculoskeletal Disorders: Arthritis Endocrine History of Endocrine Disorders: Yes Endocrine Disorders: Diabetes, Non-Insulin dep HEENT History of HEENT Disorders: Yes HEENT Disorders: Cataract, Glaucoma Loss of Vision: Denies Hearing Impairment: Denies Cancer History of Cancer: No Psychosocial History of Psychiatric Problem: Yes (HX OF TRAUMATIC BRAIN INJURY, STROKE, DEMENTIA WITH BEHAVIOR DISORDER) Integumentary History of Skin or Integumenta: No Blood Transfusions History of Blood Disorders: No Adverse Reaction to a Blood Tr: No Reviewed Nursing Assessment Reviewed/Agree w Nursing PMH: Yes Family Medical History Significant Family History: Heart Disease, Cancer, Other Conditions/Hx Family Medial History: Alcoholism 19 FATHER, Onset:Unknown Congenital heart disease 19 FATHER, Onset:Unknown FH: cancer G8 SISTER, Onset:Unknown Review of Systems Time Seen by Provider: 09:08 Constitutional: Sweats, Weakness, Malaise Eyes: No: Pain, Vision change, Conjunctivae inflammation, Eyelid inflammation, Other, Redness ENT: No: Ear pain, Ear discharge, Nose pain, Nose discharge, Nose congestion, Mouth pain, Mouth swelling, Throat pain, Throat swelling, Other Respiratory: Cough, Shortness of breath, SOB with excertion, Sputum Cardiovascular: Paroxysmal Noc. Dyspnea Gastrointestinal: Nausea, Diarrhea Neurological: Weakness Exam Exam Vital Signs Date Time Temp Pulse Resp B/P (MAP) Pulse Ox O2 Delivery O2 Flow Rate FiO2 01/25/18 08:54 96 Nasal Cannula 4.00 01/25/18 07:00 67 01/25/18 04:15 96.9 67 18 111/63 (79) 97 Nasal Cannula 4.00 01/25/18 03:10 95 Nasal Cannula 4.00 01/25/18 02:20 Nasal Cannula 4.00 01/25/18 01:00 72 01/25/18 00:00 96.9 73 17 110/60 (77) 95 Nasal Cannula 4.00 01/24/18 22:18 92 Nasal Cannula 4.00 01/24/18 22:18 90 Nasal Cannula 4.00 01/24/18 21:30 Nasal Cannula 4.00 01/24/18 20:20 90 Nasal Cannula 4.00 01/24/18 20:15 97.5 73 18 137/76 (96) 97 Nasal Cannula 0.50 01/24/18 19:00 70 01/24/18 17:30 Nasal Cannula 2.00 01/24/18 16:56 94 Nasal Cannula 0.50 01/24/18 16:56 69 94 23 01/24/18 16:22 66 01/24/18 15:45 96.7 69 18 136/72 (93) 94 Nasal Cannula 0.50 01/24/18 15:44 97.3 69 16 124/75 (117) 95 Nasal Cannula 2.00 01/24/18 11:04 97.0 91 16 148/102 (117) Nasal Cannula 2.00 I & O 01/25/18 07:00 Intake Total 4070 ml Output Total 250 ml Balance 3820 ml General Appearance: No Apparent Distress, WD/WN HEENT: PERRL/EOMI, Pharynx Normal Neck: Full Range of Motion, Supple Respiratory: Chest Non Tender, Crackles (FAINT IN BASES) Cardiovascular: Regular Rate, Rhythm, No Edema Capillary Refill: Less Than 3 Seconds Gastrointestinal: normal bowel sounds, non tender, soft Extremity: Normal Capillary Refill, Non Tender, No Calf Tenderness, No Pedal Edema Neurologic/Psychiatric: Alert, Normal Mood/Affect, Other (ORIENTED TO PERSON, PLACE, NOT TIME - PT KNEW WHO THIS PROVIDER WAS BY NAME) Skin: Warm/Dry Results Lab Laboratory Tests 01/24/18 11:10 01/25/18 06:00 Assessment/Plan Assessment/Plan Lung mass -Will plan for bronchoscopy Pneumonia, and UTI -Abx Acute renal failure secondary to dehydration -improving 254 MAGGIE COE DO Jan 25, 2018 09:10
[2018-01-25] MEDS: meTOprolol TARTRATE 25 MG (LOPRESSOR) TABLET PO SCH ×2 (09:26→21:29)
[2018-01-25] MEDS: DIVALPROEX 250 MG DELAYED RELEASE (DEPAKOTE) TAB PO SCH ×2 (09:28→21:29)
[2018-01-25] MEDS: TOLTERODINE LA 4 MG (DETROL) CAP PO SCH ×2 (09:28→21:29)
[2018-01-25] MEDS: FAMOTIDINE 20 MG (PEPCID) TABLET PO SCH ×2 (09:34→21:28)
[2018-01-25] MEDS: MEMANTINE 5 MG (NAMENDA) TABLET PO SCH ×2 (09:35→21:28)
[2018-01-25] MEDS: CEFEPIME 2 GM/NS 100 ML IVPB IV SCH ×2 (09:36)
[2018-01-25] MEDS: ONDANSETRON 4 MG/2 ML (SDV) Z0FRAN IVP PRN (09:39)
[2018-01-25 12:00] VITALS: BP 106/57
[2018-01-25 16:00] VITALS: BP 110/58
[2018-01-25] MEDS: VANCOMYCIN 1250 MG/NS 250 ML IVPB IV SCH ×2 (17:13)
[2018-01-25] MEDS: TAMSULOSIN 0.4 MG (FLOMAX) CAP PO SCH (17:13)
[2018-01-25] MEDS: ACETAMINOPHEN 325 MG TABLET PO PRN (19:47)
[2018-01-25 20:00] VITALS: BP 108/56
[2018-01-25] MEDS: DIVALPROEX 500 MG DELAYED RELEASE (DEPAKOTE) TAB PO SCH (21:28)
[2018-01-25] MEDS: GABAPENTIN 100 MG (NEURONTIN) CAP PO SCH (21:28)
[2018-01-25] MEDS: LORATADINE (CLARITIN) 10 MG TAB PO SCH (21:29)
[2018-01-26 00:16] VITALS: BP 120/60
[2018-01-26] MEDS: ACETAMINOPHEN 325 MG TABLET PO PRN ×2 (01:16→20:26)
[2018-01-26] MEDS: NS IV 1000 ML 1,000 ML IV SCH ×3 (01:16→23:25)
[2018-01-26] MEDS: ALPRAZolam 0.25 MG (XANAX) TAB PO PRN (01:16)
[2018-01-26] MEDS: RT-ALBUTEROL/IPRATROPIUM 3 ML (DUONEB) VIAL INH SCH ×4 (03:19→19:53)
[2018-01-26] MEDS: ONDANSETRON 4 MG/2 ML (SDV) Z0FRAN IVP PRN (03:32)
[2018-01-26 04:33] VITALS: BP 131/68
--- NOTE | 2018-01-26 05:59 | Pulmonary Progress Note ---
Subjective Time Seen by Provider: 06:34 Subjective/Events-last exam No complications noted. Focused Exam Lactate Level Laboratory Tests 01/24/18 11:15: Lactic Acid Level 1.94 Exam Exam Vital Signs Date Time Temp Pulse Resp B/P (MAP) Pulse Ox O2 Delivery O2 Flow Rate FiO2 01/26/18 03:20 92 Nasal Cannula 2.00 01/26/18 01:00 82 01/26/18 00:16 97.6 73 17 120/60 (80) 95 Nasal Cannula 2.50 01/25/18 21:49 93 Nasal Cannula 2.00 01/25/18 20:00 97.2 78 16 108/56 (73) 95 Nasal Cannula 2.50 01/25/18 19:45 Nasal Cannula 3.00 01/25/18 19:00 82 01/25/18 16:00 98.3 76 16 110/58 (75) 93 Nasal Cannula 2.50 01/25/18 14:53 97 Nasal Cannula 3.00 01/25/18 13:00 74 01/25/18 12:00 97.0 81 18 106/57 (73) 94 Nasal Cannula 2.50 01/25/18 08:54 96 Nasal Cannula 4.00 01/25/18 08:00 Nasal Cannula 4.00 01/25/18 08:00 97.0 70 20 144/60 (88) 97 Room Air 01/25/18 07:00 67 I & O 01/26/18 07:00 Intake Total 4540 ml Output Total 700 ml Balance 3840 ml General Appearance: No Apparent Distress, WD/WN HEENT: PERRL/EOMI, Pharynx Normal Neck: Full Range of Motion, Supple Respiratory: Chest Non Tender, Crackles (FAINT IN BASES) Cardiovascular: Regular Rate, Rhythm, No Edema Capillary Refill: Less Than 3 Seconds Gastrointestinal: normal bowel sounds, non tender, soft Extremity: Normal Capillary Refill, Non Tender, No Calf Tenderness, No Pedal Edema Neurologic/Psychiatric: Alert, Normal Mood/Affect, Other (ORIENTED TO PERSON, PLACE, NOT TIME - PT KNEW WHO THIS PROVIDER WAS BY NAME) Skin: Warm/Dry Results Lab Laboratory Tests 01/24/18 11:10 01/25/18 06:00 Assessment/Plan Assessment/Plan Lung mass -Will plan for bronchoscopy with EBUS on Monday AM Pneumonia, and UTI -Abx Acute renal failure secondary to dehydration -improving 232 MAGGIE COE DO Jan 26, 2018 05:59
[2018-01-26] MEDS: inSUlin (REGULAR) HUMAN 1 UNIT/0.01 ML (CHARGE PER UNIT) SC SCH ×4 (06:19→20:38)
[2018-01-26] MEDS: KCL 20 MEQ TAB (K-DUR) PO SCH ×2 (06:19→17:09)
[2018-01-26 08:00] VITALS: BP 109/55
--- NOTE | 2018-01-26 08:39 | Progress Note ---
Subjective Date Seen by Provider: Jan 26, 2018 Time Seen by Provider: 08:39 Subjective/Events-last exam PT REPORTS THAT HE DOES NOT FEEL VERY GOOD THIS MORNING - FATIGUED, NOT COMPLAINING OF SHORTNESS OF BREATH, BUT DOES HAVE SOME NAUSEA AND MID ABDOMEN PAIN. Review of Systems General: Fatigue, Malaise HEENT: No Head Aches Pulmonary: No Dyspnea, No Cough Cardiovascular: No: Chest Pain, Palpitations Gastrointestinal: Nausea, Abdominal Pain Neurological: Weakness, Confusion Focused Exam Lactate Level Laboratory Tests 01/24/18 11:15: Lactic Acid Level 1.94 Objective Exam Last Set of Vital Signs Vital Signs Date Time Temp Pulse Resp B/P (MAP) Pulse Ox O2 Delivery O2 Flow Rate FiO2 01/26/18 07:00 72 01/26/18 04:33 97.9 17 131/68 (89) 96 Nasal Cannula 2.50 01/24/18 16:56 23 Capillary Refill : Less Than 3 Seconds I&O Intake and Output 01/26/18 00:00 Intake Total 2590 ml Output Total 800 ml Balance 1790 ml Intake Oral 590 ml IV Total 2000 ml Output Urine Total 800 ml # Voids 1 # Urine Diapers 2 General: Alert, Oriented X3, Cooperative, No Acute Distress HEENT: Atraumatic, PERRLA Neck: Supple Lungs: Clear to Auscultation Heart: Regular Rate Abdomen: Normal Bowel Sounds, Soft, No Tenderness Extremities: No Cyanosis, No Edema Skin: No Breakdown Psych/Mental Status: Mental Status NL (FLAT AFFECT) Results Lab Laboratory Tests 01/25/18 11:03: Glucometer 214H 01/25/18 16:21: Glucometer 129H 01/25/18 20:49: Glucometer 176H 01/26/18 05:54: Glucometer 234H Microbiology 01/24/18 Blood Culture - Preliminary, Resulted No growth 01/24/18 Urine Culture - Preliminary, Resulted Assessment/Plan Assessment/Plan Assess & Plan/Chief Complaint PNEUMONIA URINARY TRACT INFECTION DIABETES MELLITUS HYPERTENSION WEAKNESS NAUSEA AND EMESIS ACUTE RENAL INSUFFICIENCY CONFUSION DEMENTIA GERD URINARY INCONTINENCE PNEUMONIA - STARTED PNEUMONIA PROTOCOL - VANCOMYCIN AND CEFEPIME - PT HAD ENTEROCOCCUS ON LAST UTI AND WAS STARTED ON TREATMENT FOR HIS PNEUMONIA WHICH WOULD CROSS COVER FOR ENTEROCOCCAL INFECTION. - URINARY TRACT INFECTION - LAST UTI IN HOSPITAL WAS ENTEROCOCCAL - THEREFORE PT STARTED ON VANCOMYCIN AND CEFEPIME. WILL WAIT ON CULTURE REPORT TO FURTHER NARROW TREATMENT. WAITING ON CULTURE REPORT - WILL STOP VANCOMYCIN IF CULTURE IS NEGATIVE DIABETES MELLITUS - RESUME HOME MEDICATIONS - INCREASED LANTUS DOSE TODAY. HYPERTENSION - RESUME HOME MEDICATIONS - MONITOR BLOOD PRESSURE REPORTS. WEAKNESS WITH NAUSEA AND EMESIS - PRN ZOFRAN - SUPPORTIVE CARE, START PHYSICAL THERAPY WHEN PT FEELING BETTER. ACUTE RENAL INSUFFICIENCY - SHOULD IMPROVE WITH HYDRATION. CONFUSION - DEMENTIA- CHRONIC - RESTARTED NAMENDA - HELD ARICEPT IT CAN CAUSE NAUSEA - MONITOR HIS SYMPTOMS - HE APPEARS TO BE LESS CONFUSED THAN REPORTED BY EMERGENCY DEPARTMENT - SUSPECT THAT HYDRATION HAS HELPED HIS SYMPTOMS. PULMONARY NODULES ON ABDOMINAL CT SCAN- CHECKED CT OF CHEST AND I HAVE ATTEMPTED TO CALL HIS SISTER JESSIE - I WAS ABLE TO TALK TO THE JESSIE AND HER , CHON TO LET THEM KNOW ABOUT THE LUNG NODULES AND I WILL CONSULT DR. COE FOR POSSIBLE BRONCHOSCOPY. CT SCAN FINDINGS FOLLOWS: IMPRESSION: There are several bilateral pulmonary nodules. The largest one is in the right upper lobe. Enlarged mediastinal and right hilar lymph nodes are present. The largest one measures 5.2 cm. GERD - RESTARTED PO PEPCID URINARY INCONTINENCE -RESTART HOME MEDS. DVT PROPHYLAXIS WITH LOVENOX GI PROPHYLAXIS WITH HIS PO PEPCID Clinical Quality Measures Admission Status Admission Dx PNEUMONIA URINARY TRACT INFECTION DIABETES MELLITUS HYPERTENSION WEAKNESS NAUSEA AND EMESIS ACUTE RENAL INSUFFICIENCY CONFUSION DEMENTIA GERD URINARY INCONTINENCE DVT/VTE Risk/Contraindication: Risk Factor Score Per Nursin RFS Level Per Nursing on Admit: 4+=Very High AURORA RUDD MD Jan 26, 2018 08:39
[2018-01-26] MEDS: RT-ADVAIR HFA 45/21 MCG PER PUFF IH SCH ×2 (09:26→19:53)
[2018-01-26] MEDS: CEFEPIME 2 GM/NS 100 ML IVPB IV SCH ×2 (10:12)
[2018-01-26] MEDS: meTOprolol TARTRATE 25 MG (LOPRESSOR) TABLET PO SCH ×2 (10:13→20:26)
[2018-01-26] MEDS: TOLTERODINE LA 4 MG (DETROL) CAP PO SCH ×2 (10:13→20:25)
[2018-01-26] MEDS: inSUlin DETERMIR 1 UNIT/0.01 ML (LEVEMIR) CHARGE PER UNIT SQ SCH (10:13)
[2018-01-26] MEDS: DIVALPROEX 250 MG DELAYED RELEASE (DEPAKOTE) TAB PO SCH ×2 (10:13→20:26)
[2018-01-26] MEDS: MEMANTINE 5 MG (NAMENDA) TABLET PO SCH ×2 (10:14→20:25)
[2018-01-26] MEDS: FAMOTIDINE 20 MG (PEPCID) TABLET PO SCH ×2 (10:14→20:25)
[2018-01-26 12:00] VITALS: BP 129/75
[2018-01-26 15:25] VITALS: BP 144/65
[2018-01-26] MEDS: TAMSULOSIN 0.4 MG (FLOMAX) CAP PO SCH (17:09)
[2018-01-26] MEDS: VANCOMYCIN 1250 MG/NS 250 ML IVPB IV SCH ×2 (17:10)
[2018-01-26 19:35] VITALS: BP 138/57
[2018-01-26] MEDS: GABAPENTIN 100 MG (NEURONTIN) CAP PO SCH (20:25)
[2018-01-26] MEDS: LORATADINE (CLARITIN) 10 MG TAB PO SCH (20:26)
[2018-01-26] MEDS: DIVALPROEX 500 MG DELAYED RELEASE (DEPAKOTE) TAB PO SCH (20:26)
[2018-01-27] VITALS: BP 137/68
[2018-01-27] MEDS: RT-ALBUTEROL/IPRATROPIUM 3 ML (DUONEB) VIAL INH SCH ×4 (02:11→19:47)
[2018-01-27 03:33] VITALS: BP 143/67
[2018-01-27 04:39] LABS: HEMOGLOBIN 10.4 G/DL (13.3-17.7); MEAN PLATELET VOLUME 10.7 FL (7.4-10.4); RED BLOOD COUNT 3.3 10^6/uL (4.35-5.85); RED CELL DISTRIBUTION WIDTH 13.2 % (10.0-14.5); WHITE BLOOD COUNT 6.9 10^3/uL (4.3-11.0)
[2018-01-27 04:53] LABS: ALANINE AMINOTRANSFERASE 14 U/L (0-55); ALBUMIN 3.2 GM/DL (3.2-4.5); ALKALINE PHOSPHATASE 50 U/L (40-136); BILIRUBIN,TOTAL 0.3 MG/DL (0.1-1.0); BUN/CREATININE RATIO 14; CALCIUM 8.4 MG/DL (8.5-10.1); CARBON DIOXIDE 24 MMOL/L (21-32); CHLORIDE 108 MMOL/L (98-107); CREATININE SERUM 0.85 MG/DL (0.60-1.30); GFR ESTIMATED > 60; GLUCOSE 120 MG/DL (70-105); POTASSIUM 4.1 MMOL/L (3.6-5.0); SODIUM 140 MMOL/L (135-145); TOTAL PROTEIN 5.7 GM/DL (6.4-8.2)
[2018-01-27] MEDS: inSUlin (REGULAR) HUMAN 1 UNIT/0.01 ML (CHARGE PER UNIT) SC SCH ×4 (05:13→20:45)
[2018-01-27] MEDS: KCL 20 MEQ TAB (K-DUR) PO SCH ×2 (06:07→16:47)
[2018-01-27] MEDS: ACETAMINOPHEN 325 MG TABLET PO PRN (06:08)
[2018-01-27 08:00] VITALS: BP 135/74
[2018-01-27] MEDS: DIVALPROEX 250 MG DELAYED RELEASE (DEPAKOTE) TAB PO SCH ×2 (08:19→20:42)
[2018-01-27] MEDS: MEMANTINE 5 MG (NAMENDA) TABLET PO SCH ×2 (08:19→20:42)
[2018-01-27] MEDS: FAMOTIDINE 20 MG (PEPCID) TABLET PO SCH ×2 (08:19→20:43)
[2018-01-27] MEDS: ALPRAZolam 0.25 MG (XANAX) TAB PO PRN (08:19)
[2018-01-27] MEDS: CEFEPIME 2 GM/NS 100 ML IVPB IV SCH ×2 (08:19)
[2018-01-27] MEDS: meTOprolol TARTRATE 25 MG (LOPRESSOR) TABLET PO SCH ×2 (08:19→20:42)
[2018-01-27] MEDS: TOLTERODINE LA 4 MG (DETROL) CAP PO SCH ×2 (08:20→20:42)
[2018-01-27] MEDS: inSUlin DETERMIR 1 UNIT/0.01 ML (LEVEMIR) CHARGE PER UNIT SQ SCH (08:20)
[2018-01-27] MEDS: RT-ADVAIR HFA 45/21 MCG PER PUFF IH SCH ×2 (09:47→19:47)
--- NOTE | 2018-01-27 09:54 | Diagnostic Imaging Report ---
INDICATION: Pneumonia. TECHNIQUE: Two view chest 09:48 a.m. CORRELATION STUDY: 01/24/2018. FINDINGS: Heart size remains enlarged. Abnormal masslike density at the right paramediastinal region persists. Scattered areas of airspace disease particularly left mid lung and right mid lung field persisting generally stable. Right pleural effusion however has adversely changed along with small left pleural effusion. Slight eccentric thoracic kyphotic curvature. IMPRESSION: Generally stable appearance of the right paramediastinal and hilar mass. No new areas of infiltrate. Bilateral pleural effusions right greater than left are adversely changed. Dictated by: Dictated on workstation # [id number]
--- NOTE | 2018-01-27 11:22 | Progress Note-Hospitalist ---
Subjective HPI/CC On Admission Date Seen by Provider: Jan 27, 2018 Time Seen by Provider: 10:15 Patient is doing pretty well He is sitting up in chair RN has no concerns Denies any significant specific pain although pain everywhere as reported Patient has had a history of traumatic brain injury so this is likely baseline Reviewed labs and imaging scans and medications Bowels are moving and denies any other significant shortness of breath issues Review of Systems Pulmonary: Cough Objective Exam Vital Signs Vital Signs Date Time Temp Pulse Resp B/P (MAP) Pulse Ox O2 Delivery O2 Flow Rate FiO2 01/24/18 11:04 97.0 91 16 148/102 (117) Nasal Cannula 2.00 01/24/18 15:44 95 01/24/18 16:56 23 Capillary Refill : Less Than 3 Seconds General Appearance: No Apparent Distress, WD/WN, Chronically ill Neck: Full Range of Motion, Normal Inspection Respiratory: Chest Non Tender, No Accessory Muscle Use, No Respiratory Distress , Crackles, Decreased Breath Sounds Cardiovascular: Regular Rate, Rhythm, No Edema Neurologic/Psychiatric: Alert, Oriented x3, No Motor/Sensory Deficits, Depressed Affect Skin: Normal Color, Warm/Dry Results/Procedures Lab Laboratory Tests 01/27/18 04:10 Patient resulted labs reviewed. Assessment/Plan Assessment and Plan Assess & Plan/Chief Complaint Assessment: Pneumonia Multiple new lung masses etiology unclear but patient does not know the knees yet so we'll await primary care provider on Monday DPOA aware UTI Traumatic brain injury baseline cognition deficit Generalized pain Plan: Monitor closely Maintain pneumonia and UTI treatment Check labs in a.m. Ambulate Oxygen Albuterol treatments Lung mass evaluation will be discussed on Monday by primary care provider Clinical Quality Measures DVT/VTE Risk/Contraindication: Risk Factor Score Per Nursin RFS Level Per Nursing on Admit: 4+=Very High NAHOMY NARVAEZ DO Jan 27, 2018 11:22
[2018-01-27 12:00] VITALS: BP 128/72
[2018-01-27] MEDS: NS IV 1000 ML 1,000 ML IV SCH (15:04)
[2018-01-27 16:00] VITALS: BP 129/72
[2018-01-27] MEDS ORDERED: TROUGH ORDER-PHARMACY XX NR (16:00)
[2018-01-27] MEDS: VANCOMYCIN 1250 MG/NS 250 ML IVPB IV SCH ×2 (16:46)
[2018-01-27] MEDS: TAMSULOSIN 0.4 MG (FLOMAX) CAP PO SCH (16:47)
[2018-01-27] MEDS ORDERED: LACTULOSE SYRUP 10GM/15ML (ENULOSE) 30ML UDC PO PRN (17:30)
[2018-01-27 20:00] VITALS: BP 124/58
[2018-01-27] MEDS: GABAPENTIN 100 MG (NEURONTIN) CAP PO SCH (20:42)
[2018-01-27] MEDS: LORATADINE (CLARITIN) 10 MG TAB PO SCH (20:42)
[2018-01-27] MEDS: DOCUSATE SODIUM 100 MG (COLACE) CAP PO SCH (20:42)
[2018-01-27] MEDS: DIVALPROEX 500 MG DELAYED RELEASE (DEPAKOTE) TAB PO SCH (20:42)
[2018-01-28] VITALS: BP 131/81
[2018-01-28] MEDS: RT-ALBUTEROL/IPRATROPIUM 3 ML (DUONEB) VIAL INH SCH ×4 (01:54→21:05)
[2018-01-28] MEDS: NS IV 1000 ML 1,000 ML IV SCH (03:44)
[2018-01-28 03:56] VITALS: BP 129/69
[2018-01-28 04:52] LABS: BASOPHILS % (AUTO) 0 % (0-10); EOSINOPHILS # (AUTO) 0.1 10^3/uL (0.0-0.3); EOSINOPHILS % (AUTO) 1 % (0-10); HEMATOCRIT 32 % (40-54); HEMOGLOBIN 10.7 G/DL (13.3-17.7); LYMPHOCYTES # (AUTO) 0.9 X 10^3 (1.0-4.0); LYMPHOCYTES % (AUTO) 10 % (12-44); MEAN CORPUSCULAR HEMOGLOBIN 32 PG (25-34); MEAN CORPUSCULAR HGB CONC 33 G/DL (32-36); MEAN CORPUSCULAR VOLUME 95 FL (80-99); MONOCYTES # (AUTO) 0.9 X 10^3 (0.0-1.0); MONOCYTES % (AUTO) 10 % (0-12); NEUTROPHILS # (AUTO) 6.7 X 10^3 (1.8-7.8); NEUTROPHILS % (AUTO) 79 % (42-75); PLATELET COUNT 256 10^3/uL (130-400); RED CELL DISTRIBUTION WIDTH 13.2 % (10.0-14.5); WHITE BLOOD COUNT 8.5 10^3/uL (4.3-11.0)
[2018-01-28 05:11] LABS: ALANINE AMINOTRANSFERASE 12 U/L (0-55); ALBUMIN 3.3 GM/DL (3.2-4.5); ALKALINE PHOSPHATASE 53 U/L (40-136); BILIRUBIN,TOTAL 0.5 MG/DL (0.1-1.0); BUN/CREATININE RATIO 9; CALCIUM 8.6 MG/DL (8.5-10.1); CARBON DIOXIDE 26 MMOL/L (21-32); CHLORIDE 105 MMOL/L (98-107); CREATININE SERUM 0.82 MG/DL (0.60-1.30); GFR ESTIMATED > 60; GLUCOSE 158 MG/DL (70-105); POTASSIUM 3.9 MMOL/L (3.6-5.0); SODIUM 138 MMOL/L (135-145)
[2018-01-28] MEDS: inSUlin (REGULAR) HUMAN 1 UNIT/0.01 ML (CHARGE PER UNIT) SC SCH ×4 (05:21→21:06)
[2018-01-28] MEDS: KCL 20 MEQ TAB (K-DUR) PO SCH ×2 (06:40→16:41)
[2018-01-28] MEDS: ONDANSETRON 4 MG/2 ML (SDV) Z0FRAN IVP PRN (06:54)
[2018-01-28 08:00] VITALS: BP 121/68
[2018-01-28] MEDS: CEFEPIME 2 GM/NS 100 ML IVPB IV SCH ×2 (08:11)
[2018-01-28] MEDS: DIVALPROEX 250 MG DELAYED RELEASE (DEPAKOTE) TAB PO SCH ×2 (08:12→21:10)
[2018-01-28] MEDS: FAMOTIDINE 20 MG (PEPCID) TABLET PO SCH ×2 (08:12→21:08)
[2018-01-28] MEDS: meTOprolol TARTRATE 25 MG (LOPRESSOR) TABLET PO SCH ×2 (08:12→21:08)
[2018-01-28] MEDS: ALPRAZolam 0.25 MG (XANAX) TAB PO PRN (08:12)
[2018-01-28] MEDS: DOCUSATE SODIUM 100 MG (COLACE) CAP PO SCH ×2 (08:12→21:08)
[2018-01-28] MEDS: MEMANTINE 5 MG (NAMENDA) TABLET PO SCH ×2 (08:12→21:08)
[2018-01-28] MEDS: inSUlin DETERMIR 1 UNIT/0.01 ML (LEVEMIR) CHARGE PER UNIT SQ SCH (08:13)
[2018-01-28] MEDS: ACETAMINOPHEN 325 MG TABLET PO PRN (08:13)
[2018-01-28] MEDS: TOLTERODINE LA 4 MG (DETROL) CAP PO SCH ×2 (08:13→21:07)
[2018-01-28] MEDS: RT-ADVAIR HFA 45/21 MCG PER PUFF IH SCH ×2 (08:48→21:06)
[2018-01-28 12:00] VITALS: BP 119/62
--- NOTE | 2018-01-28 12:26 | Progress Note-Hospitalist ---
Subjective HPI/CC On Admission Date Seen by Provider: Jan 28, 2018 Time Seen by Provider: 11:20 Patient is doing pretty well He is in bed RN has no concerns Review of Systems Pulmonary: Dyspnea Objective Exam Vital Signs Vital Signs Date Time Temp Pulse Resp B/P (MAP) Pulse Ox O2 Delivery O2 Flow Rate FiO2 01/24/18 11:04 97.0 91 16 148/102 (117) Nasal Cannula 2.00 01/24/18 15:44 95 01/24/18 16:56 23 Capillary Refill : Less Than 3 Seconds General Appearance: No Apparent Distress, WD/WN, Chronically ill Respiratory: Lungs Clear, Normal Breath Sounds Cardiovascular: Regular Rate, Rhythm, No Edema Results/Procedures Lab Laboratory Tests 01/28/18 04:10 Patient resulted labs reviewed. Assessment/Plan Assessment and Plan Assess & Plan/Chief Complaint Assessment: Pneumonia Multiple new lung masses etiology unclear but patient does not know the knees yet so we'll await primary care provider on Monday DPOA aware UTI Traumatic brain injury baseline cognition deficit Generalized pain Plan: Monitor closely Maintain pneumonia and UTI treatment Check labs in a.m. Ambulate Oxygen Albuterol treatments Lung mass evaluation will be discussed on Monday by primary care provider Clinical Quality Measures DVT/VTE Risk/Contraindication: Risk Factor Score Per Nursin RFS Level Per Nursing on Admit: 4+=Very High NAHOMY NARVAEZ DO Jan 28, 2018 12:26
[2018-01-28 16:00] VITALS: BP 109/58
[2018-01-28] MEDS: VANCOMYCIN 1250 MG/NS 250 ML IVPB IV SCH ×2 (16:41)
[2018-01-28] MEDS: TAMSULOSIN 0.4 MG (FLOMAX) CAP PO SCH (16:41)
[2018-01-28 20:00] VITALS: BP 124/60
[2018-01-28] MEDS: LORATADINE (CLARITIN) 10 MG TAB PO SCH (21:07)
[2018-01-28] MEDS: DIVALPROEX 500 MG DELAYED RELEASE (DEPAKOTE) TAB PO SCH (21:07)
[2018-01-28] MEDS: GABAPENTIN 100 MG (NEURONTIN) CAP PO SCH (21:07)
[2018-01-29] VITALS: BP 116/59
[2018-01-29] MEDS: RT-ALBUTEROL/IPRATROPIUM 3 ML (DUONEB) VIAL INH SCH ×4 (02:19→21:28)
[2018-01-29 04:00] VITALS: BP 141/64
[2018-01-29] MEDS: NS IV 1000 ML 1,000 ML IV SCH (04:06)
[2018-01-29] MEDS: inSUlin (REGULAR) HUMAN 1 UNIT/0.01 ML (CHARGE PER UNIT) SC SCH ×4 (06:11→20:48)
[2018-01-29] MEDS: KCL 20 MEQ TAB (K-DUR) PO SCH ×2 (06:17→20:47)
[2018-01-29 08:00] VITALS: BP 139/63
--- NOTE | 2018-01-29 09:05 | Pulmonary Progress Note ---
Subjective Time Seen by Provider: 09:04 Subjective/Events-last exam Pt appears to be doing better. Exam Exam Vital Signs Date Time Temp Pulse Resp B/P (MAP) Pulse Ox O2 Delivery O2 Flow Rate FiO2 01/29/18 07:57 91 Nasal Cannula 3.00 01/29/18 07:00 78 01/29/18 04:00 97.4 75 20 141/64 (89) 96 5.00 01/29/18 02:20 85 Nasal Cannula 3.00 01/29/18 01:00 70 01/29/18 00:00 97.5 70 20 116/59 (78) 92 Nasal Cannula 4.00 01/28/18 21:13 Nasal Cannula 3.00 01/28/18 21:12 91 Nasal Cannula 3.00 01/28/18 20:00 97.6 76 24 124/60 (81) 90 Nasal Cannula 2.50 01/28/18 19:45 91 Nasal Cannula 3.00 01/28/18 19:00 78 01/28/18 16:00 97.2 76 20 109/58 (75) 93 Nasal Cannula 2.50 01/28/18 15:10 90 Nasal Cannula 3.00 01/28/18 13:00 72 01/28/18 12:00 98.4 65 16 119/62 (81) 90 Nasal Cannula 2.50 01/28/18 09:53 Nasal Cannula 3.00 01/28/18 09:53 92 Nasal Cannula 3.00 I & O 01/29/18 07:00 Intake Total 5625 ml Output Total 100 ml Balance 5525 ml General Appearance: No Apparent Distress, WD/WN, Chronically ill HEENT: PERRL/EOMI, Pharynx Normal Neck: Full Range of Motion, Normal Inspection Respiratory: Lungs Clear, Normal Breath Sounds Cardiovascular: Regular Rate, Rhythm, No Edema Capillary Refill: Less Than 3 Seconds Gastrointestinal: normal bowel sounds, non tender, soft Extremity: Normal Capillary Refill, Non Tender, No Calf Tenderness, No Pedal Edema Neurologic/Psychiatric: Alert, Oriented x3, No Motor/Sensory Deficits, Depressed Affect Skin: Normal Color, Warm/Dry Results Lab Laboratory Tests 01/28/18 04:10 Assessment/Plan Assessment/Plan Lung mass -Will plan for bronchoscopy with EBUS on Wed AM Pneumonia, and UTI -Abx Acute renal failure secondary to dehydration -improving 232 MAGGIE COE DO Jan 29, 2018 09:05
[2018-01-29] MEDS: meTOprolol TARTRATE 25 MG (LOPRESSOR) TABLET PO SCH ×2 (09:10→20:48)
[2018-01-29] MEDS: DIVALPROEX 250 MG DELAYED RELEASE (DEPAKOTE) TAB PO SCH ×2 (09:10→20:48)
[2018-01-29] MEDS: CEFEPIME 2 GM/NS 100 ML IVPB IV SCH ×2 (09:10)
[2018-01-29] MEDS: MEMANTINE 5 MG (NAMENDA) TABLET PO SCH ×2 (09:10→20:48)
[2018-01-29] MEDS: DOCUSATE SODIUM 100 MG (COLACE) CAP PO SCH ×2 (09:10→20:47)
[2018-01-29] MEDS: TOLTERODINE LA 4 MG (DETROL) CAP PO SCH ×2 (09:10→20:47)
[2018-01-29] MEDS: FAMOTIDINE 20 MG (PEPCID) TABLET PO SCH ×2 (09:11→20:48)
[2018-01-29] MEDS: inSUlin DETERMIR 1 UNIT/0.01 ML (LEVEMIR) CHARGE PER UNIT SQ SCH (09:11)
--- NOTE | 2018-01-29 09:18 | Progress Note ---
Subjective Date Seen by Provider: Jan 29, 2018 Time Seen by Provider: 09:10 Subjective/Events-last exam PT CONFUSED, HE REPORTS THAT HE IS BREATHING BETTER. HE REPORTS THAT HE DOES NOT WANT TO EAT THIS MORNING. Review of Systems General: Fatigue, Malaise HEENT: No Head Aches Pulmonary: Dyspnea, Cough Cardiovascular: No: Chest Pain, Palpitations Gastrointestinal: No: Nausea, Abdominal Pain Genitourinary: No Dysuria, No Frequency Neurological: Weakness Objective Exam Last Set of Vital Signs Vital Signs Date Time Temp Pulse Resp B/P (MAP) Pulse Ox O2 Delivery O2 Flow Rate FiO2 01/29/18 07:57 91 Nasal Cannula 3.00 01/29/18 07:00 78 01/29/18 04:00 97.4 20 141/64 (89) 01/27/18 16:01 32 Capillary Refill : Less Than 3 Seconds I&O Intake and Output 01/29/18 00:00 Intake Total 5550 ml Output Total 100 ml Balance 5450 ml Intake Oral 550 ml IV Total 5000 ml Output Urine Total 100 ml # Voids 3 # Urine Diapers 807 General: Alert, Cooperative, No Acute Distress, Other (INTERMITTENTLY CONFUSED) HEENT: Atraumatic, PERRLA Neck: Supple Lungs: Other (DECREASED AIR MOVEMENT) Heart: Regular Rate Abdomen: Normal Bowel Sounds, Soft, No Tenderness Extremities: No Cyanosis, No Edema Skin: No Breakdown Neuro: Cranial Nerves 3-12 NL Psych/Mental Status: Mental Status NL (FLAT AFFECT) Results Lab Laboratory Tests 01/28/18 12:22: Glucometer 153H 01/28/18 16:02: Glucometer 126H 01/28/18 20:29: Glucometer 83 01/29/18 05:30: Glucometer 68L Microbiology 01/24/18 Blood Culture - Preliminary, Resulted No growth 01/25/18 MRSA Screen - Final, Complete MRSA not isolated 01/24/18 Urine Culture - Final, Complete Assessment/Plan Assessment/Plan Assess & Plan/Chief Complaint PNEUMONIA URINARY TRACT INFECTION DIABETES MELLITUS HYPERTENSION WEAKNESS NAUSEA AND EMESIS ACUTE RENAL INSUFFICIENCY CONFUSION DEMENTIA GERD URINARY INCONTINENCE PNEUMONIA - STARTED PNEUMONIA PROTOCOL - VANCOMYCIN AND CEFEPIME - PT HAD ENTEROCOCCUS ON LAST UTI AND WAS STARTED ON TREATMENT FOR HIS PNEUMONIA WHICH WOULD CROSS COVER FOR ENTEROCOCCAL INFECTION. - URINARY TRACT INFECTION - LAST UTI IN HOSPITAL WAS ENTEROCOCCAL - THEREFORE PT STARTED ON VANCOMYCIN AND CEFEPIME. DIABETES MELLITUS - RESUME HOME MEDICATIONS - CONTINUE WITH LANTUS HYPERTENSION - RESUME HOME MEDICATIONS - MONITOR BLOOD PRESSURE REPORTS. WEAKNESS WITH NAUSEA AND EMESIS - PRN ZOFRAN - SUPPORTIVE CARE, STARTED PHYSICAL THERAPY. ACUTE RENAL INSUFFICIENCY - IMPROVED WITH HYDRATION. CONFUSION - DEMENTIA- CHRONIC - RESTARTED NAMENDA - HELD ARICEPT IT CAN CAUSE NAUSEA PULMONARY NODULES ON ABDOMINAL CT SCAN - BRONCHOSCOPY PLANNED. CT SCAN FINDINGS FOLLOWS: IMPRESSION: There are several bilateral pulmonary nodules. The largest one is in the right upper lobe. Enlarged mediastinal and right hilar lymph nodes are present. The largest one measures 5.2 cm. GERD - RESTARTED PO PEPCID URINARY INCONTINENCE -RESTART HOME MEDS. DVT PROPHYLAXIS WITH LOVENOX GI PROPHYLAXIS WITH HIS PO PEPCID Clinical Quality Measures Admission Status Admission Dx PNEUMONIA URINARY TRACT INFECTION DIABETES MELLITUS HYPERTENSION WEAKNESS NAUSEA AND EMESIS ACUTE RENAL INSUFFICIENCY CONFUSION DEMENTIA GERD URINARY INCONTINENCE DVT/VTE Risk/Contraindication: Risk Factor Score Per Nursin RFS Level Per Nursing on Admit: 4+=Very High AURORA RUDD MD Jan 29, 2018 09:18
[2018-01-29] MEDS: RT-ADVAIR HFA 45/21 MCG PER PUFF IH SCH ×2 (10:12→21:30)
[2018-01-29 12:00] VITALS: BP 127/58
[2018-01-29 15:55] VITALS: BP_SYST 127; BP_SYST 61; BP_DIAS 58; BP_DIAS 61
[2018-01-29 19:40] VITALS: BP 163/77
[2018-01-29] MEDS: LORATADINE (CLARITIN) 10 MG TAB PO SCH (20:47)
[2018-01-29] MEDS: TAMSULOSIN 0.4 MG (FLOMAX) CAP PO SCH (20:47)
[2018-01-29] MEDS: GABAPENTIN 100 MG (NEURONTIN) CAP PO SCH (20:48)
[2018-01-29] MEDS: DIVALPROEX 500 MG DELAYED RELEASE (DEPAKOTE) TAB PO SCH (20:48)
[2018-01-29] MEDS: ALPRAZolam 0.25 MG (XANAX) TAB PO PRN (21:33)
[2018-01-30 00:20] VITALS: BP 139/69
[2018-01-30] MEDS: NS IV 1000 ML 1,000 ML IV SCH ×2 (00:56→06:20)
[2018-01-30] MEDS: RT-ALBUTEROL/IPRATROPIUM 3 ML (DUONEB) VIAL INH SCH ×4 (02:59→19:52)
[2018-01-30] MEDS: inSUlin (REGULAR) HUMAN 1 UNIT/0.01 ML (CHARGE PER UNIT) SC SCH ×4 (05:21→22:14)
--- NOTE | 2018-01-30 05:23 | Pulmonary Progress Note ---
Subjective Time Seen by Provider: 05:58 Subjective/Events-last exam No complications noted. Exam Exam Vital Signs Date Time Temp Pulse Resp B/P (MAP) Pulse Ox O2 Delivery O2 Flow Rate FiO2 01/30/18 03:00 91 Nasal Cannula 5.50 01/30/18 01:00 72 01/30/18 00:20 98.2 75 17 139/69 (92) 97 Nasal Cannula 4.00 01/29/18 21:28 90 Nasal Cannula 6.00 01/29/18 20:45 Nasal Cannula 5.00 01/29/18 19:40 97.8 81 18 163/77 (105) 94 Nasal Cannula 5.00 01/29/18 19:00 77 01/29/18 16:05 96 Nasal Cannula 6.00 01/29/18 15:55 97.9 76 18 127/61 (83) 95 Nasal Cannula 5.00 01/29/18 13:00 78 01/29/18 12:00 97.4 72 18 127/58 (81) 93 Nasal Cannula 4.00 01/29/18 10:08 88 Nasal Cannula 5.00 01/29/18 08:00 98.1 76 16 139/63 (88) 92 Nasal Cannula 4.00 01/29/18 07:57 91 Nasal Cannula 3.00 01/29/18 07:00 78 I & O 01/30/18 07:00 Intake Total 1650 ml Output Total 175 ml Balance 1475 ml General Appearance: No Apparent Distress, WD/WN, Chronically ill Respiratory: Lungs Clear, Normal Breath Sounds Cardiovascular: Regular Rate, Rhythm, No Edema Capillary Refill: Less Than 3 Seconds Gastrointestinal: normal bowel sounds, non tender, soft Neurologic/Psychiatric: Depressed Affect Skin: Normal Color, Warm/Dry Assessment/Plan Assessment/Plan Lung mass -Will plan for bronchoscopy with EBUS on Wed AM Pneumonia, and UTI -Abx- d/c Acute renal failure secondary to dehydration -improving 232 MAGGIE COE DO Jan 30, 2018 05:23
[2018-01-30] MEDS: KCL 20 MEQ TAB (K-DUR) PO SCH ×2 (06:08→17:12)
[2018-01-30] MEDS: DOCUSATE SODIUM 100 MG (COLACE) CAP PO SCH ×2 (07:52→22:13)
[2018-01-30] MEDS: inSUlin DETERMIR 1 UNIT/0.01 ML (LEVEMIR) CHARGE PER UNIT SQ SCH (07:52)
[2018-01-30] MEDS: ALPRAZolam 0.25 MG (XANAX) TAB PO PRN ×2 (07:53→22:33)
[2018-01-30] MEDS: MEMANTINE 5 MG (NAMENDA) TABLET PO SCH ×2 (07:53→22:14)
[2018-01-30] MEDS: TOLTERODINE LA 4 MG (DETROL) CAP PO SCH ×2 (07:53→22:13)
[2018-01-30] MEDS: FAMOTIDINE 20 MG (PEPCID) TABLET PO SCH ×2 (07:53→22:14)
[2018-01-30] MEDS: DIVALPROEX 250 MG DELAYED RELEASE (DEPAKOTE) TAB PO SCH ×2 (07:53→22:13)
[2018-01-30] MEDS: ACETAMINOPHEN 325 MG TABLET PO PRN (07:54)
[2018-01-30] MEDS: meTOprolol TARTRATE 25 MG (LOPRESSOR) TABLET PO SCH ×2 (07:55→22:13)
[2018-01-30 08:00] VITALS: BP 147/71
--- NOTE | 2018-01-30 09:31 | Progress Note ---
Subjective Date Seen by Provider: Jan 30, 2018 Time Seen by Provider: 09:30 Subjective/Events-last exam PT REPORTS THAT HE IS HAVING COUGH, CONGESTION, GENERALIZED WEAKNESS AND PT NOT EATING WELL, HE REPORTS THAT HE JUST WANTS TO GO HOME. Review of Systems General: Fatigue Pulmonary: Dyspnea, Cough Cardiovascular: No: Chest Pain, Palpitations Gastrointestinal: No: Nausea Neurological: Weakness, Confusion Objective Exam Last Set of Vital Signs Vital Signs Date Time Temp Pulse Resp B/P (MAP) Pulse Ox O2 Delivery O2 Flow Rate FiO2 01/30/18 08:00 98.8 70 20 147/71 (96) 95 Nasal Cannula 4.00 01/27/18 16:01 32 Capillary Refill : Less Than 3 Seconds I&O Intake and Output 01/30/18 00:00 Intake Total 3825 ml Output Total 175 ml Balance 3650 ml Intake Oral 750 ml IV Total 3075 ml Output Urine Total 175 ml # Urine Diapers 3 General: Alert, Oriented X3, Cooperative, No Acute Distress HEENT: Atraumatic, PERRLA Neck: Supple Lungs: Other (DECREASED AIR MOVEMENT IN BASES) Heart: Regular Rate Abdomen: Normal Bowel Sounds, Soft, No Tenderness Extremities: No Cyanosis, No Edema Skin: No Breakdown Neuro: Cranial Nerves 3-12 NL Psych/Mental Status: Mental Status NL (FLAT AFFECT) Results Lab Laboratory Tests 01/29/18 11:15: Glucometer 110 01/29/18 15:57: Glucometer 91 01/29/18 20:29: Glucometer 76 01/30/18 05:15: Glucometer 100 Microbiology 01/24/18 Blood Culture - Final, Complete No growth 01/25/18 MRSA Screen - Final, Complete MRSA not isolated 01/24/18 Urine Culture - Final, Complete Assessment/Plan Assessment/Plan Assess & Plan/Chief Complaint PNEUMONIA URINARY TRACT INFECTION LUNG MASS DIABETES MELLITUS HYPERTENSION WEAKNESS NAUSEA AND EMESIS ACUTE RENAL INSUFFICIENCY CONFUSION DEMENTIA GERD URINARY INCONTINENCE PNEUMONIA - STARTED PNEUMONIA PROTOCOL - VANCOMYCIN AND CEFEPIME - PT HAD ENTEROCOCCUS ON LAST UTI AND WAS STARTED ON TREATMENT FOR HIS PNEUMONIA WHICH WOULD CROSS COVER FOR ENTEROCOCCAL INFECTION. - URINARY TRACT INFECTION - LAST UTI IN HOSPITAL WAS ENTEROCOCCAL - THEREFORE PT STARTED ON VANCOMYCIN AND CEFEPIME. DIABETES MELLITUS - RESUME HOME MEDICATIONS - CONTINUE WITH LANTUS HYPERTENSION - RESUME HOME MEDICATIONS - MONITOR BLOOD PRESSURE REPORTS. WEAKNESS WITH NAUSEA AND EMESIS - PRN ZOFRAN - SUPPORTIVE CARE, STARTED PHYSICAL THERAPY. ACUTE RENAL INSUFFICIENCY - IMPROVED WITH HYDRATION. CONFUSION - DEMENTIA- CHRONIC - RESTARTED NAMENDA - HELD ARICEPT IT CAN CAUSE NAUSEA PULMONARY NODULES ON ABDOMINAL CT SCAN - BRONCHOSCOPY PLANNED TOMORROW. CT SCAN FINDINGS FOLLOWS: IMPRESSION: There are several bilateral pulmonary nodules. The largest one is in the right upper lobe. Enlarged mediastinal and right hilar lymph nodes are present. The largest one measures 5.2 cm. GERD - RESTARTED PO PEPCID DVT PROPHYLAXIS WITH LOVENOX GI PROPHYLAXIS WITH HIS PO PEPCID Clinical Quality Measures Admission Status Admission Dx PNEUMONIA URINARY TRACT INFECTION DIABETES MELLITUS HYPERTENSION WEAKNESS NAUSEA AND EMESIS ACUTE RENAL INSUFFICIENCY CONFUSION DEMENTIA GERD URINARY INCONTINENCE DVT/VTE Risk/Contraindication: Risk Factor Score Per Nursin RFS Level Per Nursing on Admit: 4+=Very High AURORA RUDD MD Jan 30, 2018 09:30
[2018-01-30] MEDS: RT-ADVAIR HFA 45/21 MCG PER PUFF IH SCH ×2 (09:49→19:52)
[2018-01-30 09:56] VITALS: BP 139/69
[2018-01-30 09:57] LABS: MEAN PLATELET VOLUME 10.3 FL (7.4-10.4); RED BLOOD COUNT 3.73 10^6/uL (4.35-5.85); RED CELL DISTRIBUTION WIDTH 13.3 % (10.0-14.5); WHITE BLOOD COUNT 7.6 10^3/uL (4.3-11.0)
[2018-01-30 10:20] LABS: ALANINE AMINOTRANSFERASE 12 U/L (0-55); ALBUMIN 3.6 GM/DL (3.2-4.5); ALKALINE PHOSPHATASE 57 U/L (40-136); BILIRUBIN,TOTAL 0.6 MG/DL (0.1-1.0); BUN/CREATININE RATIO 10; CALCIUM 9.1 MG/DL (8.5-10.1); CARBON DIOXIDE 29 MMOL/L (21-32); CHLORIDE 101 MMOL/L (98-107); CREATININE SERUM 0.81 MG/DL (0.60-1.30); GFR ESTIMATED > 60; GLUCOSE 116 MG/DL (70-105); POTASSIUM 4.3 MMOL/L (3.6-5.0); SODIUM 137 MMOL/L (135-145)
[2018-01-30 15:35] VITALS: BP 126/71
[2018-01-30] MEDS: TAMSULOSIN 0.4 MG (FLOMAX) CAP PO SCH (17:12)
[2018-01-30 19:10] VITALS: BP 133/61
[2018-01-30] MEDS: GABAPENTIN 100 MG (NEURONTIN) CAP PO SCH (22:13)
[2018-01-30] MEDS: LORATADINE (CLARITIN) 10 MG TAB PO SCH (22:14)
[2018-01-30] MEDS: DIVALPROEX 500 MG DELAYED RELEASE (DEPAKOTE) TAB PO SCH (22:14)
[2018-01-31 00:11] VITALS: BP 145/68
[2018-01-31] MEDS: RT-ALBUTEROL/IPRATROPIUM 3 ML (DUONEB) VIAL INH SCH ×4 (01:45→20:53)
[2018-01-31] MEDS: NS IV 1000 ML 1,000 ML IV SCH (04:47)
[2018-01-31] MEDS: KCL 20 MEQ TAB (K-DUR) PO SCH ×2 (05:34→11:55)
--- NOTE | 2018-01-31 05:37 | Pulmonary Progress Note ---
Subjective Time Seen by Provider: 05:35 Subjective/Events-last exam bronch with EBUS this AM Exam Exam Vital Signs Date Time Temp Pulse Resp B/P (MAP) Pulse Ox O2 Delivery O2 Flow Rate FiO2 01/31/18 01:45 88 Nasal Cannula 4.00 01/31/18 01:00 68 01/31/18 00:11 97.9 68 18 145/68 (93) 94 Nasal Cannula 4.00 01/30/18 20:00 Nasal Cannula 5.00 01/30/18 19:56 94 Nasal Cannula 4.00 01/30/18 19:52 85 Nasal Cannula 2.00 01/30/18 19:10 98.6 81 18 133/61 (85) 94 Nasal Cannula 4.00 01/30/18 19:00 81 01/30/18 16:07 91 Nasal Cannula 4.00 01/30/18 15:35 97.7 76 18 126/71 (89) 95 Nasal Cannula 4.00 01/30/18 13:00 76 01/30/18 09:56 85 94 40 01/30/18 09:50 94 Nasal Cannula 5.00 01/30/18 08:00 98.8 70 20 147/71 (96) 95 Nasal Cannula 4.00 01/30/18 08:00 Nasal Cannula 3.00 01/30/18 07:00 82 I & O 01/31/18 07:00 Intake Total 440 ml Output Total 200 ml Balance 240 ml General Appearance: No Apparent Distress, WD/WN HEENT: PERRL/EOMI, Pharynx Normal Neck: Full Range of Motion, Supple Respiratory: Chest Non Tender, Crackles (FAINT IN BASES) Cardiovascular: Regular Rate, Rhythm, No Edema Capillary Refill: Less Than 3 Seconds Gastrointestinal: normal bowel sounds, non tender, soft Extremity: Normal Capillary Refill, Non Tender, No Calf Tenderness, No Pedal Edema Neurologic/Psychiatric: Alert, Normal Mood/Affect, Other (ORIENTED TO PERSON, PLACE, NOT TIME - PT KNEW WHO THIS PROVIDER WAS BY NAME) Skin: Warm/Dry Results Lab Laboratory Tests 01/30/18 09:45 Assessment/Plan Assessment/Plan Lung mass -Will plan for bronchoscopy with EBUS this AM Pneumonia, and UTI -Abx- d/c Acute renal failure secondary to dehydration -improving 232 MAGGIE COE DO Jan 31, 2018 05:37
--- NOTE | 2018-01-31 05:38 | Progress Note-Pre Operative ---
Pre-Operative Progress Note H&P Reviewed The H&P was reviewed, patient examined and no changes noted. Time Seen by Provider: 05:37 Date H&P Reviewed: Jan 31, 2018 Time H&P Reviewed: 05:37 Pre-Operative Diagnosis: lung mass MAGGIE COE DO Jan 31, 2018 05:38
[2018-01-31] MEDS: inSUlin (REGULAR) HUMAN 1 UNIT/0.01 ML (CHARGE PER UNIT) SC SCH ×4 (05:52→21:17)
[2018-01-31] MEDS ORDERED: proPOfol 200 MG/20 ML (DIPRIVAN) VIAL IV ONE (07:14)
[2018-01-31] MEDS ORDERED: MIDAZOLAM 2 MG/2 ML (VERSED) VIAL ONE (07:15)
[2018-01-31] MEDS ORDERED: ONDANSETRON 4 MG/2 ML (SDV) Z0FRAN ONE (07:15)
[2018-01-31] MEDS ORDERED: fentaNYL INJECTION 100 MCG/2 ML AMP ONE (07:15)
[2018-01-31] MEDS ORDERED: SUCCINYLCHOLINE INJ 100 MG/5 ML SYR ONE (07:16)
[2018-01-31] MEDS ORDERED: LIDOCAINE PF 2% 5 ML (XYLOCAINE) VIAL ONE (07:16)
[2018-01-31] MEDS ORDERED: LACTATED RINGERS 1,000 ML IV ONE (07:26)
[2018-01-31] MEDS ORDERED: NEOSTIGMINE 1 MG/ML 5 ML SYRINGE ONE (07:40)
[2018-01-31] MEDS ORDERED: GLYCOPYRROLATE 0.2 MG/ML (ROBINUL) 2 ML VIAL ONE (07:40)
[2018-01-31] MEDS ORDERED: LACTATED RINGERS 1,000 ML IV PRN (08:06)
[2018-01-31] MEDS ORDERED: morphine INJ 10 MG/ML 1ML (SYR OR VIAL) IVP PRN (08:15)
[2018-01-31] MEDS ORDERED: MEPERIDINE (DEMEROL) INJ 50 MG/ML IVP PRN (08:15)
[2018-01-31] MEDS ORDERED: ONDANSETRON 4 MG/2 ML (SDV) Z0FRAN IVP PRN (08:15)
[2018-01-31] MEDS: RT-ADVAIR HFA 45/21 MCG PER PUFF IH SCH ×2 (08:50→20:53)
--- NOTE | 2018-01-31 08:51 | Pulmonary Procedures ---
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 Complications: None Pt was sedated per anesthesia. 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 EBUS was then advanced through ET tube and the mediastinum was US. Station [7] lymph nodes were sampled via needle bx under US guidance. Pt tolerated procedure well. No complications noted. MAGGIE COE DO Jan 31, 2018 08:51
[2018-01-31] MEDS ORDERED: SEVOFLURANE (ULTANE) 15 ML INHAL SOLN ONE (08:53)
--- NOTE | 2018-01-31 09:22 | Diagnostic Imaging Report ---
INDICATION: Post bronchoscopy. TIME OF EXAM: 09:00 a.m. Correlation is made with prior study from 01/27/2018. The heart size is normal. Soft tissue mass-like density in the right paratracheal/right suprahilar region persists. There appears to be some mild infiltrate in the right lung. No pneumothorax is seen status post bronchoscopy. No significant effusion is seen. IMPRESSION: No evidence of pneumothorax, status post bronchoscopy. Dictated by: Dictated on workstation # [id number]
[2018-01-31] MEDS: MEMANTINE 5 MG (NAMENDA) TABLET PO SCH ×2 (11:55→21:33)
[2018-01-31] MEDS: TOLTERODINE LA 4 MG (DETROL) CAP PO SCH ×2 (11:55→21:33)
[2018-01-31] MEDS: DIVALPROEX 250 MG DELAYED RELEASE (DEPAKOTE) TAB PO SCH ×2 (11:55→21:33)
[2018-01-31] MEDS: DOCUSATE SODIUM 100 MG (COLACE) CAP PO SCH ×2 (11:55→21:33)
[2018-01-31] MEDS: meTOprolol TARTRATE 25 MG (LOPRESSOR) TABLET PO SCH ×2 (11:56→21:34)
[2018-01-31] MEDS: inSUlin DETERMIR 1 UNIT/0.01 ML (LEVEMIR) CHARGE PER UNIT SQ SCH (11:57)
[2018-01-31] MEDS ORDERED: LIDOCAINE PF 1% 2 ML AMP ONE (12:00)
[2018-01-31] MEDS: ALPRAZolam 0.25 MG (XANAX) TAB PO PRN ×2 (12:01→21:39)
[2018-01-31] MEDS: FAMOTIDINE 20 MG (PEPCID) TABLET PO SCH ×2 (12:01→21:33)
[2018-01-31 15:35] VITALS: BP 116/58
[2018-01-31] MEDS: TAMSULOSIN 0.4 MG (FLOMAX) CAP PO SCH (19:52)
[2018-01-31] MEDS: GABAPENTIN 100 MG (NEURONTIN) CAP PO SCH (21:33)
[2018-01-31] MEDS: DIVALPROEX 500 MG DELAYED RELEASE (DEPAKOTE) TAB PO SCH (21:33)
[2018-01-31] MEDS: LORATADINE (CLARITIN) 10 MG TAB PO SCH (21:33)
[2018-02-01 00:39] VITALS: BP 137/79
[2018-02-01] MEDS: RT-ALBUTEROL/IPRATROPIUM 3 ML (DUONEB) VIAL INH SCH ×4 (02:53→20:46)
[2018-02-01] MEDS: inSUlin (REGULAR) HUMAN 1 UNIT/0.01 ML (CHARGE PER UNIT) SC SCH ×4 (05:42→21:30)
[2018-02-01] MEDS: KCL 20 MEQ TAB (K-DUR) PO SCH ×2 (06:26→16:16)
[2018-02-01] MEDS: NS IV 1000 ML 1,000 ML IV SCH (06:26)
[2018-02-01] MEDS: TOLTERODINE LA 4 MG (DETROL) CAP PO SCH ×2 (07:59→20:08)
[2018-02-01] MEDS: FAMOTIDINE 20 MG (PEPCID) TABLET PO SCH ×2 (07:59→20:08)
[2018-02-01 08:00] VITALS: BP 134/69
[2018-02-01] MEDS: DIVALPROEX 250 MG DELAYED RELEASE (DEPAKOTE) TAB PO SCH ×2 (08:00→20:08)
[2018-02-01] MEDS: meTOprolol TARTRATE 25 MG (LOPRESSOR) TABLET PO SCH ×2 (08:00→20:08)
[2018-02-01] MEDS: inSUlin DETERMIR 1 UNIT/0.01 ML (LEVEMIR) CHARGE PER UNIT SQ SCH (08:00)
[2018-02-01] MEDS: DOCUSATE SODIUM 100 MG (COLACE) CAP PO SCH ×2 (08:00→20:08)
[2018-02-01] MEDS: MEMANTINE 5 MG (NAMENDA) TABLET PO SCH ×2 (08:00→20:08)
[2018-02-01] MEDS: ACETAMINOPHEN 325 MG TABLET PO PRN (08:00)
[2018-02-01] MEDS: ALPRAZolam 0.25 MG (XANAX) TAB PO PRN ×2 (08:00→22:54)
[2018-02-01] MEDS: RT-ADVAIR HFA 45/21 MCG PER PUFF IH SCH ×2 (09:24→20:45)
[2018-02-01 15:31] VITALS: BP 111/56
[2018-02-01] MEDS: TAMSULOSIN 0.4 MG (FLOMAX) CAP PO SCH (16:16)
[2018-02-01 19:54] VITALS: BP 134/71
[2018-02-01] MEDS: LORATADINE (CLARITIN) 10 MG TAB PO SCH (20:08)
[2018-02-01] MEDS: DIVALPROEX 500 MG DELAYED RELEASE (DEPAKOTE) TAB PO SCH (20:08)
[2018-02-01] MEDS: GABAPENTIN 100 MG (NEURONTIN) CAP PO SCH (20:08)
[2018-02-02] VITALS: BP 165/82
[2018-02-02] MEDS: RT-ALBUTEROL/IPRATROPIUM 3 ML (DUONEB) VIAL INH SCH ×2 (02:49→08:47)
[2018-02-02 04:00] VITALS: BP 113/57
[2018-02-02 05:09] VITALS: BP 113/57
[2018-02-02] MEDS: NS IV 1000 ML 1,000 ML IV SCH (06:06)
[2018-02-02] MEDS: inSUlin (REGULAR) HUMAN 1 UNIT/0.01 ML (CHARGE PER UNIT) SC SCH ×2 (06:06→11:30)
[2018-02-02] MEDS: KCL 20 MEQ TAB (K-DUR) PO SCH (06:06)
[2018-02-02 08:00] VITALS: BP 160/77
[2018-02-02] MEDS: FAMOTIDINE 20 MG (PEPCID) TABLET PO SCH (08:24)
[2018-02-02] MEDS: TOLTERODINE LA 4 MG (DETROL) CAP PO SCH (08:24)
[2018-02-02] MEDS: DIVALPROEX 250 MG DELAYED RELEASE (DEPAKOTE) TAB PO SCH (08:24)
[2018-02-02] MEDS: meTOprolol TARTRATE 25 MG (LOPRESSOR) TABLET PO SCH (08:24)
[2018-02-02] MEDS: ACETAMINOPHEN 325 MG TABLET PO PRN (08:24)
[2018-02-02] MEDS: MEMANTINE 5 MG (NAMENDA) TABLET PO SCH (08:24)
[2018-02-02] MEDS: RT-ADVAIR HFA 45/21 MCG PER PUFF IH SCH (08:47)
[2018-02-02] MEDS ORDERED: IPRA3AMP31 NEB (08:52)
--- NOTE | 2018-02-02 08:56 | D/C HH Face to Face Order ---
D/C Face to Face Orders Instructions for Patient Patient Instructions/FollowUp: 1 WK WITH [facility] [address] COE Physician to follow Patient: [facility] Discharge Diet for Home: ADA Diet Patient Problems: LUNG MASS DIABETES HYPERTENSION TRAUMATIC BRAIN INJURY Patient Data-Allergies,Ht & Wt Patient Allergies: Coded Allergies: No Known Drug Allergies (Verified , 02/26/17) Height (Feet): 6 Height (Inches): 0.00 Weight (Pounds): 185 Weight (Ounces): 2.0 Home Health Need/Face to Face Date of Face to Face: Feb 02, 2018 Clinical Findings: Generalized weakness and fatigue, Muscle weakness, Shortness of breath, Unsteady gait I have seen Pt [id number]: Yes Discharged To: Other ([facility] - [facility]) Diagnosis/Conditions: LUNG MASS DIABETES HYPERTENSION TRAUMATIC BRAIN INJURY GENERALIZED WEAKNESS Patient is Homebound due to: CognItive deficits, [place] fall risk due to instabilty, Muscle weakness, Shortness of breath/distress Homebound Status Due to the above stated illness, injury or surgical procedure (medical condition or diagnosis) and associated clinical findings, the patient is homebound because of his/her inability to leave home except with aid of a supportive device and/or person AND leaving the home requires a considerable and taxing effort or is medically contraindicated. Pt req the following assistanc: [facility] Nursing Orders Home Health Services Order: Nursing Services, Independent Living Specialist-Evaluate & Treat, Physical Therapy-Evaluate & Treat Home Health Infusion Therapy Line Start Date: Jan 24, 2018 Line Type: Peripheral IV Site Location: Forearm Therapy Orders Therapy Orders: Physical Therapy, PT to assess for OT Therapy Specific Orders: Eval assistive deivces, Gait training, Increase strength/endurance, Restore ROM Certify Stmt I certify that this patient is under my care and that I, a nurse practitioner or a physician; a assistant field hockey coach working with me, had a face to face encounter that - meets the physician face to face encounter requirements with this patient as dated. AURORA RUDD MD Feb 02, 2018 08:56
--- NOTE | 2018-02-02 08:57 | Discharge Summary ---
Diagnosis/Chief Complaint Date of Admission Jan 24, 2018 at 15:16 Date of Discharge Discharge Date: Feb 02, 2018 Discharge Time: 1100 Admission Diagnosis Admission Diagnosis PNEUMONIA URINARY TRACT INFECTION LUNG MASS DIABETES MELLITUS HYPERTENSION WEAKNESS NAUSEA AND EMESIS ACUTE RENAL INSUFFICIENCY CONFUSION DEMENTIA GERD URINARY INCONTINENCE Discharge Diagnosis PNEUMONIA URINARY TRACT INFECTION LUNG MASS DIABETES MELLITUS HYPERTENSION WEAKNESS NAUSEA AND EMESIS ACUTE RENAL INSUFFICIENCY CONFUSION DEMENTIA GERD URINARY INCONTINENCE Reason Hospital Visit PT IS A 72 Y/O MALE WHO IS KNOWN TO ME FROM CLINIC. HE PRESENTED TO THE EMERGENCY DEPARTMENT WITH CONFUSION, PERSISTENT EMESIS AND WAS FOUND TO HAVE A UTI WELL PNEUMONIA. THERE WERE OTHER ABNORMALITIES ON HIS CHEST ON CT SCAN OF ABDOMEN AND PELVIS - PLANNING ON CT SCAN OF CHEST INPATIENT. Discharge Summary Consultations DR. COE Discharge Physical Examination Allergies: Coded Allergies: No Known Drug Allergies (Verified , 02/26/17) Vitals & I&Os General Appearance: Alert, Oriented X3, Cooperative, No Acute Distress HEENT: Atraumatic, PERRLA Respiratory: Clear to Auscultation Cardiovascular: Regular Rate Abdominal: Normal Bowel Sounds, Soft, No Tenderness Extremities: No Cyanosis, No Edema Skin: No Breakdown Neuro: Cranial Nerves 3-12 NL Psych/Mental Status: Mental Status NL (FLAT AFFECT) Hospital Course PNEUMONIA URINARY TRACT INFECTION LUNG MASS DIABETES MELLITUS HYPERTENSION WEAKNESS NAUSEA AND EMESIS ACUTE RENAL INSUFFICIENCY CONFUSION DEMENTIA GERD URINARY INCONTINENCE PNEUMONIA - STARTED PNEUMONIA PROTOCOL - VANCOMYCIN AND CEFEPIME - PT HAD ENTEROCOCCUS ON LAST UTI AND WAS STARTED ON TREATMENT FOR HIS PNEUMONIA WHICH WOULD CROSS COVER FOR ENTEROCOCCAL INFECTION. - URINARY TRACT INFECTION - LAST UTI IN HOSPITAL WAS ENTEROCOCCAL - THEREFORE PT STARTED ON VANCOMYCIN AND CEFEPIME. DIABETES MELLITUS - RESUME HOME MEDICATIONS - CONTINUE WITH LANTUS HYPERTENSION - RESUME HOME MEDICATIONS - MONITOR BLOOD PRESSURE REPORTS. WEAKNESS WITH NAUSEA AND EMESIS - PRN ZOFRAN - SUPPORTIVE CARE, STARTED PHYSICAL THERAPY. ACUTE RENAL INSUFFICIENCY - IMPROVED WITH HYDRATION. CONFUSION - DEMENTIA- CHRONIC - RESTARTED NAMENDA - HELD ARICEPT IT CAN CAUSE NAUSEA PULMONARY NODULES ON ABDOMINAL CT SCAN - BRONCHOSCOPY PERFORMED. - WAITING ON PATHOLOGY. CT SCAN FINDINGS FOLLOWS: IMPRESSION: There are several bilateral pulmonary nodules. The largest one is in the right upper lobe. Enlarged mediastinal and right hilar lymph nodes are present. The largest one measures 5.2 cm. GERD - RESTARTED PO PEPCID DVT PROPHYLAXIS WITH LOVENOX GI PROPHYLAXIS WITH HIS PO PEPCID Pending Labs Discharge Condition at discharge STABLE Instructions to patient/family Please see electronic discharge instructions given to patient. Discharge Medications Reviewed and agree with Discharge Medication list on patient's Discharge Instruction sheet Clinical Quality Measures DVT/VTE Risk/Contraindication: Risk Factor Score Per Nursin RFS Level Per Nursing on Admit: 4+=Very High AURORA RUDD MD Feb 02, 2018 08:57
[2018-02-02] MEDS: DOCUSATE SODIUM 100 MG (COLACE) CAP PO SCH (09:10)
[2018-02-02] MEDS: inSUlin DETERMIR 1 UNIT/0.01 ML (LEVEMIR) CHARGE PER UNIT SQ SCH (09:10)
[2018-02-02 12:15] VITALS: BP 160/77
--- NOTE | 2018-02-05 15:50 | Physician Query Clarification ---
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 Please document a response below. PHYSICIAN RESPONSE Pathology Report Findings: Yes,agree w/path dx as documented In responding to this query, please exercise your independent professional judgment. The purpose of this communication is to more accurately reflect the complexity of your patients condition. The fact that a question is asked does not imply that any particular answer is desired or expected. Thank you for your timely response to this clarification. Requestors name: [ ] Phone # [ ] THIS PHYSICIAN QUERY FORM IS A PERMANENT PART OF THE MEDICAL RECORD ABDIRASHID REICH Feb 05, 2018 15:50 AURORA RUDD MD Feb 06, 2018 13:02
== END 2018-02-02 12:01 | disposition home health service (06) | DRG 167 ==
LOC: EDUNIT# 11:04 → ER 11:05 → 4TH 15:16
PROVIDERS: ADMIT Family Medicine; ATTEND Family Medicine
PROC: 07B74ZX Excision of Thorax Lymphatic, Percutaneous Endoscopic Approach, Diagnostic (ICD-10-PCS; 2018-01-31)
PROC: 0BDC8ZX Extraction of Right Upper Lung Lobe, Via Natural or Artificial Opening Endoscopic, Diagnostic (ICD-10-PCS; 2018-01-31)
PROC: 0BDF8ZX Extraction of Right Lower Lung Lobe, Via Natural or Artificial Opening Endoscopic, Diagnostic (ICD-10-PCS; 2018-01-31)
PROC: 0BB48ZX Excision of Right Upper Lobe Bronchus, Via Natural or Artificial Opening Endoscopic, Diagnostic (ICD-10-PCS; principal; 2018-01-31 07:23)
DX: J18.9 Pneumonia, unspecified organism (principal); N39.0 Urinary tract infection, site not specified; C34.11 Malignant neoplasm of upper lobe, right bronchus or lung; C77.1 Secondary and unspecified malignant neoplasm of intrathoracic lymph nodes; J98.4 Other disorders of lung; F03.91 Unspecified dementia, unspecified severity, with behavioral disturbance; E11.9 Type 2 diabetes mellitus without complications; I10 Essential (primary) hypertension; N28.9 Disorder of kidney and ureter, unspecified; R11.2 Nausea with vomiting, unspecified; F17.210 Nicotine dependence, cigarettes, uncomplicated; E86.0 Dehydration; R19.7 Diarrhea, unspecified; J44.9 Chronic obstructive pulmonary disease, unspecified; R09.02 Hypoxemia; R56.9 Unspecified convulsions; F41.9 Anxiety disorder, unspecified; F32.9 Major depressive disorder, single episode, unspecified; H40.9 Unspecified glaucoma; M19.91 Primary osteoarthritis, unspecified site; K21.9 Gastro-esophageal reflux disease without esophagitis; R44.1 Visual hallucinations; R32 Unspecified urinary incontinence; R59.0 Localized enlarged lymph nodes; Z87.820 Personal history of traumatic brain injury; Z86.73 Personal history of transient ischemic attack (TIA), and cerebral infarction without residual deficits
CPT/HCPCS: 36415; 70450; 71045; 71046; 71250; 74176; 80053; 80164; 80202; 81000; 82728; 82962; 83540; 83605; 83690; 83880; 84484; 85025; 85027; 85610; 87040; 87070; 87081; 87088; 87101; 87116; 87205; 88112; 88305; 88341; 88342; 88344; 93005; 94640; 94664; 94760; 96361; 96365; 96375

== ENCOUNTER 2018-02-09 12:28 | Outpatient (RCR) | payer MEDICARE, MEDICAID ==
[~2018-02-09 12:28] MED LIST changes: +DESM0.2T2 PO; +DIVA250T2 PO; +LIDO1ADH51 TD
[2018-02-09 14:15] LABS: BASOPHILS % (AUTO) 0 % (0-10); EOSINOPHILS # (AUTO) 0.2 10^3/uL (0.0-0.3); EOSINOPHILS % (AUTO) 2 % (0-10); HEMATOCRIT 40 % (40-54); HEMOGLOBIN 13.3 G/DL (13.3-17.7); LYMPHOCYTES # (AUTO) 1.4 X 10^3 (1.0-4.0); LYMPHOCYTES % (AUTO) 14 % (12-44); MEAN CORPUSCULAR HEMOGLOBIN 31 PG (25-34); MEAN CORPUSCULAR HGB CONC 33 G/DL (32-36); MEAN CORPUSCULAR VOLUME 92 FL (80-99); MEAN PLATELET VOLUME 10.4 FL (7.4-10.4); MONOCYTES # (AUTO) 0.8 X 10^3 (0.0-1.0); MONOCYTES % (AUTO) 8 % (0-12); NEUTROPHILS # (AUTO) 7.2 X 10^3 (1.8-7.8); NEUTROPHILS % (AUTO) 75 % (42-75); PLATELET COUNT 362 10^3/uL (130-400); RED BLOOD COUNT 4.34 10^6/uL (4.35-5.85); RED CELL DISTRIBUTION WIDTH 13.3 % (10.0-14.5); WHITE BLOOD COUNT 9.6 10^3/uL (4.3-11.0)
[2018-02-09] MEDS ORDERED: NS IV 1000 ML (CANCER CTR) 1,000 ML ONE (14:30)
[2018-02-09 14:33] LABS: ALBUMIN 3.8 GM/DL (3.2-4.5); BILIRUBIN,TOTAL 0.6 MG/DL (0.1-1.0); CALCIUM 9.5 MG/DL (8.5-10.1); CREATININE SERUM 1.25 MG/DL (0.60-1.30); POTASSIUM 3.8 MMOL/L (3.6-5.0); TOTAL PROTEIN 7.8 GM/DL (6.4-8.2)
== END 2018-05-10 | disposition home or self-care (01) ==
LOC: ONC 12:28
PROVIDERS: ATTEND Internal Medicine Hematology & Oncology
DX: C34.11 Malignant neoplasm of upper lobe, right bronchus or lung (principal); C77.1 Secondary and unspecified malignant neoplasm of intrathoracic lymph nodes; E86.0 Dehydration; N28.9 Disorder of kidney and ureter, unspecified; E11.9 Type 2 diabetes mellitus without complications; I10 Essential (primary) hypertension; F17.210 Nicotine dependence, cigarettes, uncomplicated; J44.9 Chronic obstructive pulmonary disease, unspecified; F41.9 Anxiety disorder, unspecified; F32.9 Major depressive disorder, single episode, unspecified; K21.9 Gastro-esophageal reflux disease without esophagitis; G40.909 Epilepsy, unspecified, not intractable, without status epilepticus; Z87.820 Personal history of traumatic brain injury; Z79.899 Other long term (current) drug therapy
CPT/HCPCS: 36415; 80053; 83615; 85025; 96360; 96361